=== PATIENT | male | born 1940 | race African-American/Black ===

== ENCOUNTER → 2017-10-20 16:56 | Outpatient (CLI) | payer BC, SELFPAY ==
--- NOTE | 2017-10-20 | IMM_PTH ---
PATIENT: GLENDY FLORES Jr. LOC: LIA U#:[id number] AGE/SX: 84/M ROOM: RE10/20/[address]: Dr. Jordy Sparks MD : 1940 BED: DIS: SPEC #: [id number] RECD: 10/22/17 12:34 STATUS: AUTUMN REQ #: [id number] ARABELLA: 10/20/17 00:[address]: Jordy Sparks DEPT: IMMUNOHISTOCHEMISTRY RECD BY: Gena Santamaria ENTERED: 10/22/17 12:35 SP TYPE: IMMUNO OTHR DR: Dr. Rashawn Monson MD Tissues: E - PROSTATE LEFT F - PROSTATE LEFT Procedures: 34BE12 (add) P40 (add) 34BE12 (initial) PHYSICIAN & INSTITUTION [place] [id number] SPECIMEN INFORMATION: Tissue Source: E - Left prostate, mid, core biopsy, F - Left prostate, base, core biopsy Clinical Info: Elevated PSA Specimen Number: [id number] E & F CPT code: 34130, 03641 x3 METHODOLOGY: Deparaffinized sections of prefer/formalin-fixed tissue or PAP/DQ stained slides are incubated with monoclonal/polyclonal antibodies/oligonucleotide probes. Localization is made via biotin free immunoperoxidase method. Appropriate controls are performed and reacted as expected. Results on target cell population are indicated in the following table: RESULTS: ANTIBODY / CLONE RESULT Block E P40 (BC28) positive 34BE12 (34BE12) positive Block F P40 (BC28) positive 34BE12 (34BE12) positive These tests were developed and their performance characteristics determined by [facility]. They may not have been cleared or approved by the U.[place]. Food and Drug Administration. The FDA has determined that such clearance or approval is not necessary. INTERPRETATION: E. Left prostate, mid, core biopsy: Negative for carcinoma. F. Left prostate, base, core biopsy: Consistent with high-grade prostatic intraepithelial neoplasia (HGPIN). SJ:ruddy 10/23/17
--- NOTE | 2017-10-20 16:30 | PROSBIL_PTH ---
PATIENT: GLENDY FLORES Jr. LOC: LIA U#:[id number] AGE/SX: 84/M ROOM: RE10/20/[address]: Dr. Jordy Sparks MD : 1940 BED: DIS: SPEC #: [id number] RECD: 10/20/17 16:55 STATUS: AUTUMN DEANDRE #: [id number] ARABELLA: 10/20/17 16:[address]: Jordy Sparks DEPT: SURGICAL PATHOLOGY RECD BY: Ivan Torres ENTERED: 10/21/17 07:32 SP TYPE: PROST BX NENA DR: Dr. Rashawn Monson MD Tissues: A - PROSTATE RIGHT B - PROSTATE RIGHT C - PROSTATE RIGHT D - PROSTATE LEFT E - PROSTATE LEFT F - PROSTATE LEFT Procedures: PROSTATE BX HEADER .OPERATION: Prostate biopsy PRE-OP DIAGNOSIS: Elevated PSA TISSUE SUBMITTED: A - Right apex, B - Right mid, C - Right base, D - Left apex, E - Left mid, F - Left base MICROSCOPIC DIAGNOSIS A. Right prostate, apex, core biopsy: Prostatic tissue, negative for malignancy. B. Right prostate, mid, core biopsy: Prostatic tissue, negative for malignancy. C. Right prostate, base, core biopsy: Focal high-grade prostatic intraepithelial neoplasia (HGPIN). D. Left prostate, apex, core biopsy: Focal high-grade prostatic intraepithelial neoplasia (HGPIN). E. Left prostate, mid, core biopsy: Prostatic tissue, negative for malignancy. Focal mild acute and chronic inflammation. See comment. F. Left prostate, base, core biopsy: Focal high-grade prostatic intraepithelial neoplasia (HGPIN). Focal atrophy. See comment. SJ:rg 10/22/17 COMMENT E & F. Immunohistochemistry ([id number]) supports the above diagnosis. Case has been reviewed in consultation with Dr. Mcdermott who concurs with the above diagnosis. IDC:AM MICROSCOPIC DESCRIPTION Slides are reviewed. GROSS DESCRIPTION A - Received is one container designated prostate, right apex. The specimen consists of three elongated fragments of light mcfadden-white soft tissue measuring 0.5 to 1.2 cm in length and 0.1 cm in diameter. The specimen is totally submitted in one cassette. B - Received is one container designated prostate, right mid. The specimen consists of three elongated fragments of light mcfadden-white soft tissue each measuring 0.5 cm in length and 0.1 cm in diameter. The specimen is totally submitted in one cassette. C - Received is one container designated prostate, right base. The specimen consists of three elongated fragments of light mcfadden-white soft tissue measuring 0.5 to 1.8 cm in length and 0.1 cm in diameter. The specimen is totally submitted in one cassette. D - Received is one container designated prostate, left apex. The specimen consists of one elongated fragment of light mcfadden-white soft tissue measuring 1.5 cm in length and 0.1 cm in diameter. A fragment of stone is also noted measuring <0.1 cm in greatest dimension. The specimen is totally submitted in one cassette. E - Received is one container designated prostate, left mid. The specimen consists of two elongated fragments of light mcfadden-white soft tissue measuring 1.2 and 1.7 cm in length and 0.1 cm in diameter. The specimen is totally submitted in one cassette. F - Received is one container designated prostate, left base. The specimen consists of two elongated fragments of light mcfadden-white soft tissue measuring 1 and 1.5 cm in length and 0.1 cm in diameter. The specimen is totally submitted in one cassette. / SJ:rg 10/21/17 TC:5 CPT: 38438 x6
== END ==
PROVIDERS: Family Provider Family Medicine; PCP Family Medicine; Visit Provider Urology
DX: R97.20 Elevated prostate specific antigen [PSA] (principal)
CPT/HCPCS: 88305; 88341; 88342; G0416

== ENCOUNTER → 2018-05-22 09:26 | Outpatient (CLI) | payer MEDICARE, SELFPAY ==
--- NOTE | 2018-05-22 10:00 | MRI_ITS ---
STUDY: MR PELVIS WITH T WITHOUT CONTRAST REASON FOR EXAM: Male, 77 years old. Elevated PSA. Prior negative prostate biopsy. TECHNIQUE: Standardized fat and water weighted pulse sequences were obtained in all 3 orthogonal planes, pre-and post contrast administration. 8 ml of Gadavist contrast material was administered intravenously for the contrast portion of the examination. COMPARISON: None. FINDINGS: There is no evidence of pelvic or inguinal lymphadenopathy. There is mild circumferential thickening of the wall the urinary bladder with mild trabeculation likely reflecting detrusor muscle hypertrophy in the setting of prostatomegaly. There are no visualized bone lesions. Evaluated portions of the small and large bowel exhibit no acute process. Prostate: The prostate is enlarged, transverse dimension 5.7 cm, anterior-posterior 4.3 cm, and craniocaudal up to 4.6 cm. Diffuse features of BPH, multinodular features of the gland, including central zone T2 hyperintense and hypointense nodularity. Mid gland, right posterior medial peripheral zone, centered on series 9 image 24, sharply circumscribed T2 hypointense nodule measuring 7.9 mm in diameter, partially abutting the capsular margin without apparent extracapsular extension, exhibiting restricted diffusion, consistent with malignancy. Mid gland, bordering the anterior transitional and anterior peripheral zone, circumscribed oval T2 hypointense nodule with a greatest dimension of approximately 12.6 mm, also exhibiting restricted diffusion. Centered on series 9 image 13. At the base of the gland, anterior fibromuscular stroma on the right, there is a more ill-defined T2 hypointense lesion measuring approximate 6 mm in greatest dimension, exhibiting restricted diffusion. Base of the gland, at the border of the anterior transitional and peripheral zone, circumscribed T2 hypointense lesion measuring 7.9 mm. Centered on series 9 image 13, also exhibiting restricted diffusion. There is no evidence of lesion of the neurovascular bundles or seminal vesicles. Each of these lesions is suspicious for malignancy. Contrast-enhanced images were performed in a delayed phase of enhancement, and early arterial enhancement and early washout features of these lesions cannot be assessed. MRI/Pelvis W/WO Contrast IMPRESSION: Multiple circumscribed/encapsulated T2 hypointense foci of the prostate gland, exhibiting restricted diffusion. No evidence of extraprostatic extension. PI-RADS Category 4. (Classification up graded from 3 based on focal markedly suspicious hypointensity on ADC). Multiple Matt images are saved to the PACS archive. Electronically Signed: Edenilson Gómez MD at 10:46 EST Tel , Service support ,
[2018-05-22 10:10] LABS: CREATININE FINGERSTICK 1.1 mg/dL (0.70-1.30); EGFR FINGERSTICK > 60.0000 mL/min (>60)
--- OUTSIDE RECORDS SUMMARY | 2018-07-26 16:30 | XMS RPT_ITS ---
:1940 Author Organization OHIP Care Team Providers Name Role Phone JOSHUA WADDELL CNP Attending Unavailable CAITLYN GAMING, DR. FLOWER Schwarz Primary Care Unavailable ZEB COLÓN MD Attending Unavailable CAITLYN GAMING, DR. FLOWER Schwarz Primary Care Unavailable CAITLYN GATES., DR. FLOWER Schwarz Attending Unavailable CAITLYN GATES., DR. FLOWER Schwarz Primary Care Unavailable MASCI, ROBEL A Referring Unavailable MASCI, ROBEL A Referring Unavailable MASCI, ROBEL A Referring Unavailable MASCI, ROBEL A Referring Unavailable MASCI, ROBEL A Referring Unavailable MASCI, ROBEL A Referring Unavailable MASCI, ROBEL A Referring Unavailable MASCI, ROBEL A Referring Unavailable MASCI, ROBEL A Attending Unavailable MASCI, ROBEL A Referring Unavailable MASCI, ROBEL A Referring Unavailable MASCI, ROBEL A Referring Unavailable MASCI, ROBEL A Referring Unavailable MASCI, ROBEL A Referring Unavailable MASCI, ROBEL A Referring Unavailable MASCI, ROBEL A Referring Unavailable MASCI, ROBEL A Referring Unavailable MASCI, ROBEL A Referring Unavailable MASCI, ROBEL A Referring Unavailable MASCI, ROBEL A Attending Unavailable MASCI, ROBEL A Referring Unavailable MASCI, ROBEL A Referring Unavailable MASCI, ROBEL A Referring Unavailable MASCI, ROBEL A Referring Unavailable HYUN, KYLER Referring Unavailable MASCI, ROBEL A Referring Unavailable MASCI, ROBEL A Attending Unavailable MASCI, ROBEL A Referring Unavailable MASCI, ROBEL A Referring Unavailable MASCI, ROBEL A Referring Unavailable MASCI, ROBEL A Referring Unavailable MASCI, ROBEL A Referring Unavailable MASCI, ROBEL A Attending Unavailable MASCI, ROBEL A Referring Unavailable MASCI, ROBEL A Referring Unavailable MASCI, ROBEL A Referring Unavailable MASCI, ROBEL A Attending Unavailable MASCI, ROBEL A Referring Unavailable MASCI, ROBEL A Referring Unavailable MASCI, ROBEL A Referring Unavailable MASCI, ROBEL A Attending Unavailable MASCI, ROBLE A Referring Unavailable MASCI, ROBEL A Referring Unavailable MASCI, ROBEL A Referring Unavailable MASCI, ROBEL A Referring Unavailable MASCI, ROBEL A Referring Unavailable MASCI, ROBEL A Referring Unavailable MASCI, ROBEL A Referring Unavailable MASCI, ROBEL A Referring Unavailable MASCI, ROBEL A Referring Unavailable MASCI, ROBEL A Referring Unavailable MASCI, ROBEL A Referring Unavailable MASCI, ROBEL A Referring Unavailable MASCI, ROBEL A Attending Unavailable MASCI, ROBEL A Referring Unavailable MASCI, ROBEL A Referring Unavailable MASCI, ROBEL A Referring Unavailable MASCI, ROBEL A Referring Unavailable MASCI, ROBEL A Referring Unavailable MASCI, ROBEL A Referring Unavailable MASCI, ROBEL A Referring Unavailable MASCI, ROBEL A Referring Unavailable MASCI, ROBEL A Referring Unavailable MASCI, ROBEL A Referring Unavailable MASCI, ROBEL A Referring Unavailable MASCI, ROBEL A Referring Unavailable MASCI, ROBEL A Referring Unavailable MASCI, ROBEL A Referring Unavailable MASCI, ROBEL A Attending Unavailable MASCI, ROBEL A Referring Unavailable MASCI, ROBEL A Referring Unavailable MASCI, ROBEL A Referring Unavailable MASCI, ROBEL A Attending Unavailable MASCI, ROBEL A Referring Unavailable MASCI, ROBEL A Referring Unavailable MASCI, ROBEL A Referring Unavailable MASCI, ROBEL A Referring Unavailable MASCI, ROBEL A Referring Unavailable MASCI, ROBEL A Referring Unavailable MASCI, ROBEL A Referring Unavailable MASCI, ROBEL A Referring Unavailable MASCI, ROBEL A Referring Unavailable MASCI, ROBEL A Referring Unavailable MASCI, ROBEL A Attending Unavailable MASCI, ROBEL A Referring Unavailable MASCI, ROBEL A Referring Unavailable MASCI, ROBEL A Referring Unavailable MASCI, ROBEL A Referring Unavailable MASCI, ROBEL A Referring Unavailable MASCI, ROBEL A Referring Unavailable MASCI, ROBEL A Referring Unavailable MASCI, ROBEL A Referring Unavailable Bridger, Jordy Bishop Attending Unavailable Bridger, Jordy Bishop Referring Unavailable NAUMOFF, FLOWER Primary Care Unavailable NitaJoshua Attending Unavailable NAUMOFF, FLOWER Primary Care Unavailable Bridger, Jordy Bishop Attending Unavailable NAUMOFF, FLOWER Primary Care Unavailable Bridger, Jordy Bishop Referring Unavailable PROBLEMS PROBLEMS DATE TYPE CONDITION / CODE ATTENDING STATUS SOURCE 05/18/2018 Active Left lower quadrant NA Active [facility] pain / R10.32(ICD-10) Clinic Main [place] [facility] 04/29/2018 Active Elevated prostate NA Active [facility] specific antigen (PSA) Clinic Main / R97.20(ICD-10) [place] [facility] 12/23/2017 Active Intestinal NA Active [facility] malabsorption, Clinic Main unspecified / [place] K90.9(ICD-10) Repository 12/23/2017 Active 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) / [place] D50.0(ICD-10) Repository 11/14/2017 Active Anemia due to [facility] antineoplastic Clinic Main chemotherapy / [place] D64.81(ICD-10) Repository 11/14/2017 Active Adverse effect of [facility] antineoplastic and Clinic Main immunosuppressive [place] drugs, initial Repository encounter / T45.1X5A(ICD-10) 09/04/2016 Active Multiple myeloma not NA Active [facility] having achieved Clinic Main remission / [place] C90.00(ICD-10) Repository PROCEDURES PROCEDURES No Procedure Records FoundRESULTS RESULTS PROGRESS Observed: 05/27/2018 Status: COMPLETED Source: [place] 9:17 AM [facility] REPOSITORY HNO ID: [id number] Author: Rola Ford (Sw) Service: (none) Author Type: Certified Orthotic Fitter Type: Progress Notes Filed: 05/27/2018 9:24 AM Note Text: Social Work Problem Referral Note INFORMATION/REFERRAL : Glendy Mark Soto. 77 year old male was referred by [facility] treasury representative to [facility] Social Work for the following reason(s): financial assistance - meals, parking, etc. PERSONS INTERVIEWED: patient and [employer] treasury representative INTERVENTION: Phone Contact Affect/Mood: The patient is noted as appropriate IDENTIFIED PROBLEMS/NEEDS: Financial Intervention/Referral to be provided:Arrangements made for continuity of care IMPRESSION/PLAN: SW received a call from [employer] treasury representative stating that income guidelines for 2019 have changed and patient may be eligible for assistance now. DAI called patient and his spouse to inform them of this news. Patient's spouse reports she will call her insurance company to see how much is left until they reach their arn-tp-kgyyln and how much the drug will be after that. She will then call SW back to report if they want to continue with patient assistance option. DAI called [employer] treasury representative, Marcie, to inform her of the current status ( , extension [phone]). Patient denies other needs at this time. F/U APPOINTMENT: CARISA Pond CNSW Observed: 05/27/2018 Status: COMPLETED Source: [place] 12:00 AM [facility] REPOSITORY Social Work (ZOIE) GLENDY FLORES JR. ([id number]) 1940 M Date Time Provider Department 05/27/18 ROLA FORD) ZOIE During your visit today, we recorded the following information about you: CARISA Raines 05/27/2018 9:24 AM Addendum Social Work Problem Referral Note INFORMATION/REFERRAL : Glendy Flores Jr. 77 year old male was referred by [facility] treasury representative to [facility] Social Work for the following reason(s): financial assistance - meals, parking, etc. PERSONS INTERVIEWED: patient and [employer] treasury representative INTERVENTION: Phone Contact Affect/Mood: The patient is noted as appropriate IDENTIFIED PROBLEMS/NEEDS: Financial Intervention/Referral to be provided:Arrangements made for continuity of care IMPRESSION/PLAN: DAI received a call from [employer] treasury representative stating that income guidelines for 2019 have changed and patient may be eligible for assistance now. DAI called patient and his spouse to inform them of this news. Patient's spouse reports she will call her insurance company to see how much is left until they reach their [id number] and how much the drug will be after that. She will then call DAI back to report if they want to continue with patient assistance option. DAI called [employer] treasury representative, Marcie, to inform her of the current status ( , extension [phone]). Patient denies other needs at this time. F/U APPOINTMENT: CARISA Pond Allergies As of Date: 05/27/2018 (No Known Allergies) Date Reviewed: 05/15/2018 Reviewed by: Amaya Donovan Ct - Fully Assessed Reason for Visit: Social Work Services [507] Prescriptions as of 05/27/2018 Sig: LENALIDOMIDE 15 MG CAPSULE Take 1 capsule by mouth once * POTASSIUM CHLORIDE ER 20 MEQ * Take 1 tablet by mouth once d* ACYCLOVIR 400 MG TABLET Take 1 tablet by mouth twice * SODIUM CHLORIDE 0.9% FLUSH Access implanted vascular acc* HEPARIN, PORCINE (PF) 100 UNI* Access implanted vascular acc* TRIAMCINOLONE ACETONIDE 0.025* Apply 1 application to affect* OXYBUTYNIN CHLORIDE ER 10 MG * Take 10 mg by mouth once juan miguel* NYSTATIN 100,000 UNIT/ML ORAL* Take 5 mL by mouth four times* Patient not taking: Reported on 02/16/2018 CLOPIDOGREL 75 MG TABLET Take 75 mg by mouth once juan miguel* OXYBUTYNIN CHLORIDE ER 5 MG T* Take 5 mg by mouth once daily* PANTOPRAZOLE 40 MG TABLET,DEL* Take 40 mg by mouth once juan miguel* DULCOLAX (BISACODYL) ORAL Take 1 tablet by mouth as nee* ONDANSETRON HCL 8 MG TABLET TAKE ONE TABLET BY MOUTH EVER* SENNOSIDES 8.6 MG-DOCUSATE SO* Take 1 tablet by mouth once d* VITAMINS AND MINERALS ORAL Take by mouth once daily. FUROSEMIDE 20 MG TABLET Take 20 mg by mouth once juan miguel* HYDROCODONE 10 MG-ACETAMINOPH* Take 1 tablet by mouth every * TAMSULOSIN 0.4 MG CAPSULE Take 0.4 mg by mouth once donna* VYTORIN 10 MG-80 MG TABLET daily at bedtime. * AMLODIPINE 10 MG-BENAZEPRIL 2* Take one(1) tablet daily. * PIOGLITAZONE 45 MG TABLET Take one(1) tablet daily. * VALSARTAN 320 MG-HYDROCHLOROT* Take one(1) tablet daily. * ASPIRIN 81 MG CHEWABLE TABLET Take one(1) tablet daily. 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 ([id number]) 1940 M Date Time Provider Department 05/25/18 ROBEL MADDEN During your visit today, we recorded the following information about you: Rebecca Kemp LPN 05/25/2018 10:04 AM Signed Refill request received from [employer] auth# [id number]. Please send electronically. Rebecca Kemp LPN Allergies As of Date: 05/25/2018 (No Known Allergies) Date Reviewed: 05/15/2018 Reviewed by: Amaya Limon - Fully Assessed Reason for Visit: Refill Request [94] Visit Diagnosis:Multiple myeloma not having achieved remission (HCC) [C90.00] Order(s):lenalidomide (REVLIMID) 15 mg capsuleTake 1 capsule by mouth once daily. for 3 weeks then off 1 week.Disp: 21 capsuleRfl: 5 Prescriptions as of 05/25/2018 Sig: LENALIDOMIDE 15 MG CAPSULE Take 1 capsule by mouth once * POTASSIUM CHLORIDE ER 20 MEQ * Take 1 tablet by mouth once d* ACYCLOVIR 400 MG TABLET Take 1 tablet by mouth twice * SODIUM CHLORIDE 0.9% FLUSH Access implanted vascular acc* HEPARIN, PORCINE (PF) 100 UNI* Access implanted vascular acc* TRIAMCINOLONE ACETONIDE 0.025* Apply 1 application to affect* OXYBUTYNIN CHLORIDE ER 10 MG * Take 10 mg by mouth once juan miguel* NYSTATIN 100,000 UNIT/ML ORAL* Take 5 mL by mouth four times* Patient not taking: Reported on 02/16/2018 CLOPIDOGREL 75 MG TABLET Take 75 mg by mouth once juan miguel* OXYBUTYNIN CHLORIDE ER 5 MG T* Take 5 mg by mouth once daily* PANTOPRAZOLE 40 MG TABLET,DEL* Take 40 mg by mouth once juan miguel* DULCOLAX (BISACODYL) ORAL Take 1 tablet by mouth as nee* ONDANSETRON HCL 8 MG TABLET TAKE ONE TABLET BY MOUTH EVER* SENNOSIDES 8.6 MG-DOCUSATE SO* Take 1 tablet by mouth once d* VITAMINS AND MINERALS ORAL Take by mouth once daily. FUROSEMIDE 20 MG TABLET Take 20 mg by mouth once juan miguel* HYDROCODONE 10 MG-ACETAMINOPH* Take 1 tablet by mouth every * TAMSULOSIN 0.4 MG CAPSULE Take 0.4 mg by mouth once donna* VYTORIN 10 MG-80 MG TABLET daily at bedtime. * AMLODIPINE 10 MG-BENAZEPRIL 2* Take one(1) tablet daily. * PIOGLITAZONE 45 MG TABLET Take one(1) tablet daily. * VALSARTAN 320 MG-HYDROCHLOROT* Take one(1) tablet daily. * ASPIRIN 81 MG CHEWABLE TABLET Take one(1) tablet daily. 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 Dx C90.00. Adult male. Route: ORAL Sig: Take 1 capsule by mouth once daily. for 3 weeks then off 1 week. Medications Discontinued During This Encounter lenalidomide (REVLIMID) 15 mg capsule 21 c* 5 04/29/2018 05/25/2018 Cmt: [employer] authorization# [id number]. DX C90.00. Adult male. Route: ORAL Sig: Take 1 capsule by mouth once daily. for 3 weeks then off 1 week. Disc: Reason for discontinue is not on file. Encounter Status:Closed by ROBEL MADDEN DO on 05/25/18 CREATININE FINGERSTICK Collected: 05/22/2018 Status: F Source: [place] 9:59 AM [facility] TYPE CODE TESTS RESULT OUT OF RANGE REFERENCE UNITS LAB L9100.0210 0.70-1.30 mg/dL Normal CREATININE WB 1.1 LAB L9100.0220 >60 mL/min EGFR WB Normal > 60.0000 Performed By: #### L9100.0200 #### [facility] Laboratory Point of Care [address] [place] [address] PELVIS W/WO CONTRAST Observed: 05/22/2018 Status: F Source: [place] 9:29 AM [facility] Imaging Services [facility] [place] [address] Pelvis W/WO Contrast MR#: [id number] Acct: [id number] Name: GLENDY FLORES Rep #: [id number] : 1940 M 77 From: Edenilson Gómez MD PCP: Flower Monson MD Status: REG CLI Study: Pelvis W/WO Contrast Date of Exam: 05/22/18 Exam# [id number] Ordering Dr: Jordy Sparks MD STUDY: MR PELVIS WITH T WITHOUT CONTRAST REASON FOR EXAM: Male, 77 years old. Elevated PSA. Prior negative prostate biopsy. TECHNIQUE: Standardized fat and water weighted pulse sequences were obtained in all 3 orthogonal planes, pre-and post contrast administration. 8 ml of Gadavist contrast material was administered intravenously for the contrast portion of the examination. COMPARISON: None. FINDINGS: There is no evidence of pelvic or inguinal lymphadenopathy. There is mild circumferential thickening of the wall the urinary bladder with mild trabeculation likely reflecting detrusor muscle hypertrophy in the setting of prostatomegaly. There are no visualized bone lesions. Evaluated portions of the small and large bowel exhibit no acute process. Prostate: The prostate is enlarged, transverse dimension 5.7 cm, anterior-posterior 4.3 cm, and craniocaudal up to 4.6 cm. Diffuse features of BPH, multinodular features of the gland, including central zone T2 hyperintense and hypointense nodularity. Mid gland, right posterior medial peripheral zone, centered on series 9 image 24, sharply circumscribed T2 hypointense nodule measuring 7.9 mm in diameter, partially abutting the capsular margin without apparent extracapsular extension, exhibiting restricted diffusion, consistent with malignancy. Mid gland, bordering the anterior transitional and anterior peripheral zone, circumscribed oval T2 hypointense nodule with a greatest dimension of approximately 12.6 mm, also exhibiting restricted diffusion. Centered on series 9 image 13. At the base of the gland, anterior fibromuscular stroma on the right, there is a more ill-defined T2 hypointense lesion measuring approximate 6 mm in greatest dimension, exhibiting restricted diffusion. Base of the gland, at the border of the anterior transitional and peripheral zone, circumscribed T2 hypointense lesion measuring 7.9 mm. Centered on series 9 image 13, also exhibiting restricted diffusion. There is no evidence of lesion of the neurovascular bundles or seminal vesicles. Each of these lesions is suspicious for malignancy. Contrast-enhanced images were performed in a delayed phase of enhancement, and early arterial enhancement and early washout features of these lesions cannot be assessed. MRI/Pelvis W/WO Contrast IMPRESSION: Multiple circumscribed/encapsulated T2 hypointense foci of the prostate gland, exhibiting restricted diffusion. No evidence of extraprostatic extension. PI-RADS Category 4. (Classification up graded from 3 based on focal markedly suspicious hypointensity on ADC). Multiple Matt images are saved to the PACS archive. Electronically Signed: Edenilson Gómez MD at 10:46 EST Tel , Service support , CC: Flower Monson MD; Jordy Sparks MD Tape Sewing Machine Operator: Signed PROGRESS Observed: 05/18/2018 Status: COMPLETED Source: [place] 5:08 PM [facility] REPOSITORY HNO ID: [id number] Author: Julia Diaz Rt Service: (none) Author Type: (none) Type: Progress Notes Filed: 05/18/2018 5:09 PM Note Text: Radiology Service Progress Note PATIENT NAME: Glendy Flores Jr. DATE OF SERVICE: May 18, 2018 TIME: 5:08 PM PATIENT IDENTITY VERIFICATION COMPLETED USING TWO (2) METHODS: Patient confirmed name verbally and Date of . PATIENT GENDER DATA: Male PATIENT RELEVANT IMPLANT DATA REVIEWED: Yes RADIOLOGY DEPARTMENT: CT; Exam(s) Completed: Abdomen/Pelvis PERIPHERAL IV DATA: port injection by oncology nurse SIGNED BY: Julia Diaz Rt May 18, 2018 5:[address] ABD/PEL W IVCON Observed: 05/18/2018 Status: F Source: [place] 4:25 PM [facility] REPOSITORY * * *Final Report* * * DATE OF EXAM: May 18 2018 4:25PM [facility] 0530 - CT ABD/PEL W IVCON / PROCEDURE REASON: multiple diagnoses * * * * Physician Interpretation * * * * EXAMINATION: CT ABDOMEN AND PELVIS WITH IV CONTRAST CLINICAL HISTORY: Left lower quadrant abdominal pain. Multiple myeloma. TECHNIQUE: CT of the abdomen and pelvis was performed using standard technique, scanning from just above the dome of the diaphragm to the symphysis pubis. MQ: CTAP_3 Contrast: IV: 150 ml of Omnipaque 300 Oral: 900 ml of 50ML Omnipaque [address] Radiation dose: Integrated Dose-length product (DLP) for this visit = 515 mGy*cm. CT Dose Reduction Employed: mAs-kVp adjusted based on patient size-age COMPARISON: None. RESULT: Liver: No mass. Normal hepatic morphology. Biliary: No bile duct dilation. The gallbladder has a normal appearance. Spleen: No mass. No splenomegaly. Pancreas: No mass or duct dilation. Adrenals: No mass. Kidneys: The kidneys enhance symmetrically. There is no hydronephrosis. There is a cyst with multiple septations in the upper pole of the right kidney which measures 3 x 2.6 cm. GI tract: No dilation or wall thickening. Lymph nodes: No abdominal or pelvic lymphadenopathy. Mesentery/Peritoneum: No ascites or mass. Retroperitoneum: No mass. Vasculature: The celiac axis and SMA are patent. The portal vein and branches, splenic vein, SMV, and hepatic veins are patent. No abdominal aortic aneurysm. Pelvis: No mass, ascites or fluid collection. The bladder has a normal appearance. Bones/Soft Tissues: No acute abnormalities. Lower thorax: No pleural effusion or consolidation. IMPRESSION: 1. No acute pathology 2. Cyst with multiple septations in the upper pole of the right kidney which could be further evaluated by renal ultrasound or MRI Tape Sewing Machine Operator: [facility] Transcribe Date/Time: May 18 2018 4:47P Dictated by : BRENT ROSEN MD This examination was interpreted and the report reviewed and electronically signed by: BRENT ROSEN MD on May 18 2018 4:54PM EST [id number] XR BONE SURVEY Observed: 05/13/2018 Status: F Source: [place] ROUTINE 1:43 PM [facility] REPOSITORY * * *Final Report* * * DATE OF EXAM: May 13 2018 1:43PM WRX [id number] - XR BONE SURVEY ROUTINE / PROCEDURE REASON: Multiple myeloma not having achieved remission (HCC) * * * * Physician Interpretation * * * * HISTORY: 77-YEAR-OLD MALE WITH Multiple myeloma not having achieved remission (HCC) . Recheck multiple myeloma TECHNIQUE: XR BONE SURVEY ROUTINE Laterality: LEFT Number of different views (projections): 19 COMPARISON: 09/04/2016 RESULT: Lateral skull, no focal lytic lesions. Cervical, thoracic and lumbar spine: Degenerative disc disease and osteopenia. No focal lytic lesion no compression fractures. Ribs: Intact, no lytic lesion no fracture. Upper extremities: Remote healed fracture of the distal radius bilaterally. AP pelvis: No focal lytic lesion. Right and left femur and right left tibia and fibula. No focal lytic lesion. Extensive arterial calcification. [place] with central venous line is present with its tip in the region of the radiation dose received junction. There is femoral graft material present in the distal right femur. IMPRESSION: NO FOCAL LYTIC LESION AND NO CHANGE COMPARED TO PREVIOUS EXAM. Tape Sewing Machine Operator: MARYAM Transcribe Date/Time: May 14 2018 3:09P Dictated by : DORA JUÁREZ MD This examination was interpreted and the report reviewed and electronically signed by: DORA JUÁREZ MD on May 14 2018 3:11PM EST [id number] PROGRESS Observed: 05/13/2018 Status: COMPLETED Source: [place] 12:42 PM [facility] REPOSITORY HNO ID: [id number] Author: Mabel Moon Service: (none) Author Type: (none) Type: Progress Notes Filed: 05/13/2018 1:44 PM Note Text: Radiology Service Progress Note PATIENT NAME: Glendy Flores Jr. DATE OF SERVICE: May 13, 2018 TIME: 1:44 PM PATIENT IDENTITY VERIFICATION COMPLETED USING TWO (2) METHODS: Patient confirmed name verbally and Date of . PATIENT GENDER DATA: Male PATIENT RELEVANT IMPLANT DATA REVIEWED: Not Applicable RADIOLOGY DEPARTMENT: General X-ray: Exam(s) Completed: Bone Survey PERIPHERAL IV DATA: Not applicable SIGNED BY: Mabel Moon May 13, 2018 1:38 PM PROGRESS Observed: 05/13/2018 Status: COMPLETED Source: [place] 12:06 PM [facility] REPOSITORY HNO ID: [id number] Author: Robel Madden Service: (none) Author Type: Physician Type: Progress Notes Filed: 05/13/2018 12:58 PM Note Text: Diagnosis: 1) Multiple myeloma. Baseline assessment on initial diagnosis: IMWG criteria, [place] Journal of Haematology 121: 749?57, 2003, update in: Rosemaryie et al. Leukemia 20: 1467-73, 2006 and at IMW meeting Jaye 2010 ? Symptomatic multiple myeloma: IgG kappa. ? Related Organ or Tissue Involvement (CRAB) or other Myeloma Defining Event (MDE): Anemia requiring transfusion. Otherwise, baseline bone survey 09/04/2016 revealed no lytic lesions. Baseline serum calcium, ionized value 1.2 mmol per liter. Baseline serum creatinine 1.2 mg/dL. ? Antecedent plasma cell dyscrasia: None known. ? Myeloma FISH panel: 13q14 (RB1): ? ? 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 ?Normal pattern 14q32 (IGH): ? ? 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 The translocation partner cannot be identified. These corresponds to standard risk disease. ? Cytogenetics: Pending. ? LDH: 210 (135-225 U/L) ? ISS stage: B2M not drawn. ? [place] Stage: III (anemia with Hgb < 8.5 g/dL) ? Monoclonal proteins at diagnosis: Serum M-spike: 7.5 gm/dL, Involved serum free light chains: eewfm=1160.0 mg/L, Uninvolved serum free light chains: lambda= 5.8 mg/L. ? Bone marrow plasma cell infiltration: 22%. HPI: The patient is a 77 yo male with PMH significant for CAD, PVD, HTN and DM2. The patient had a CBC done on 01/23/2016. At that time the white count was 6300. Hemoglobin was 10.6 g/dL and the platelet count 179,000. Chemistries at that time included a basic metabolic profile that showed a creatinine of 1.0 mg/dL. Patient had repeat CBC on 07/12/2016. The hemoglobin was noted to be 8.7 g/dL. The total white count was 6600. The differential was unremarkable. Platelet count 134,000. Chemistries were remarkable for a total serum protein at 14 g/dL. Albumin was 3.4 g/dL. Globulin fraction was not able to be determined. The remainder the chemistries were unremarkable and specifically the serum creatinine was 0.9. CBC was repeated on 07/22/2016 the hemoglobin was 8.5 g/dL. Again the total white count differential were normal. Platelet count 135,000 serum protein 14.1 g/dL. Globulin fraction was noted to be outside the reportable range. He was admitted to [facility] the first week of August. He had significant anemia and received a 2 unit red blood cell transfusion. He underwent EGD and colonoscopy. 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 Most significantly he had been having epistaxis in the few weeks prior to presentaton. This required packing. He also underwent a cauterization sometime in the last week or so but had significant right- sided epistaxis before coming in today. He is not on anticoagulation. He denies other bleeding problems. Previous therapy: 1) VCd x8 cycles. 2) Vd x2 cycles. 3) RVd x1 cycle--started lenalidomide 07/25/2017. 4) Rd. Current therapy: Revlimid on hold. Presents for ongoing hematologic management. Interim history: Having pain in left abdomen. It is been going on for about 3 weeks. It's a sharp pain in the mid left abdomen. No associated fever. No nausea or vomiting. He's been eating. No bloody stools. He's been more constipated than usual but his bowels moved yesterday and he had no relief of the pain. He is taking 2 glasses of Miralax a day. Is also using a stool softener/laxative. Otherwise he is tolerating Revlimid well. He has stable numbness of the toes and feet. He's not had any unusual bleeding or Bruising. No further hemorrhoidal bleeding. PMH, medications and allergies as below personally reviewed by me today. Any changes documented in appropriate section. ROS: Constitutional: See above. Neuro: No HODGES, dizziness or vertigo. Uses cane for occasional imbalance. HEENT: No recent change in voice, vision or hearing. Resp: No cough or sputum production. No wheeze. CVS: Denies PND and orthopnea. He has chronic mild swelling/pitting edema of both legs worse on the left secondary to previous vein harvest for bypass surgery--stable. GI: Denies symptoms of stomatitis. Denies dysphagia and odynophagia. Denies abdominal pain. : Denies dysuria or gross hematuria. No symptoms of bladder outlet obstruction. Endo: Denies hot flashes. Denies polyuria and polydipsia. Denies heat and cold intolerance. Musculoskeletal: Denies bone, joint and muscular pain. Stable lower back pain. Derm: Denies rash. Denies jaundice and diffuse pruritis. Heme: See above. Psych: Normal mood. PHYSICAL EXAM: Vitals: Blood pressure 135/78, pulse 65, temperature 36.7 ?C (98 ?F), weight 80.3 kg (177 lb). Well-appearing and in no acute distress. EYES: Sclerae are anicteric bilaterally. NECK: Supple. LYMPHATIC: There is no palpable cervical, supraclavicular adenopathy. RESPIRATORY: Inspiratory breath sounds are of normal intensity in all thakur. No rales, wheezes or rhonchi. CARDIOVASCULAR: Rhythm is regular. Normal intensity S1/S2. ABDOMEN: The abdomen is nondistended. No organomegaly. Mild to moderately tender in the mid left abdomen. No rebound or voluntary guarding. Extremities: Mild swelling with trace edema of distal LEs. SKIN: No rash. No petechiae. NEUROLOGIC: ore trimmer II-XII are grossly intact. No focal motor weakness--symmetric diffuse weakness of the legs. MUSCULOSKELETAL: No muscle wasting. LABS: Component Latest Ref Rng AND Units 08/21/2016 11/14/2017 12/22/2017 01/26/2018 02/16/2018 Protein, Total 6.0 - 8.4 g/dL 13.6 (H) 5.9 (L) 6.3 6.6 7.0 Albumin for SPE 3.37 - 4.23 gm/dL 3.93 2.94 (L) 3.16 (L) 3.50 3.64 Alpha 1 Globulin 0.18 - 0.31 gm/dL 0.25 0.35 (H) 0.31 0.33 (H) 0.31 Alpha 2 Globulin 0.52 - 0.97 gm/dL 0.71 1.03 (H) 1.04 (H) 0.95 0.96 Beta Globulin 0.84 - 1.36 gm/dL 0.65 (L) 1.01 1.00 0.99 1.06 Gamma Globulin 0.70 - 1.44 gm/dL 8.06 (H) 0.57 (L) 0.79 0.83 1.04 Interpretation (Prot Electro) SEE COMMENT SEE COMMENT SEE COMMENT SEE COMMENT SEE COMMENT M-Protein Location Gamma fraction N/A N/A N/A N/A M-Protein Concentration 0.00 gm/dL 7.50 (H) 0.00 0.00 0.00 0.00 SPE Staff Review Reviewed by Glen Chapa MD ([id number]) Reviewed by Yaniv Rowell M.D. ([id number]) Reviewed by Yaniv Rowell M.D. ([id number]) Reviewed by Anthony Marrero MD. ([id number]) Reviewed by Yaniv Rowell M.D. ([id number]) Component Latest Ref Rng AND Units 08/21/2016 12/31/2016 09/18/2017 10/16/2017 11/14/2017 12/22/2017 01/26/2018 [place] Free, Serum 3.30 - 19.40 mg/L 1,236.0 (H) 77.8 (H) 23.9 (H) 30.8 (H) 37.1 (H) 10.8 13.7 Lambda Free, Serum 5.7 - 26.3 mg/L 5.8 8.9 14.8 16.6 22.2 9.7 11.2 K/L Ratio, Serum 0.26 - 1.65 213.10 (H) 8.74 (H) 1.61 1.86 (H) 1.67 (H) 1.11 1.22 ASSESSMENT/PLAN: (C90.00) Multiple myeloma not having achieved remission (HCC) (primary encounter diagnosis) (D75.9) Hyperviscosity Assessment: -IgG kappa multiple myeloma. -Symptomatic anemia presentation requiring transfusion. -He also had significantly elevated serum protein with some symptoms of hyperviscosity including epistaxis and previous GI bleeding. -M-protein undetectable since November. -Discussed plan to continue Revlimid 15 mg dose without dexamethasone as maintenance therapy. Plan: -Revlimid 15 mg for 21 days. Supportive care: Hematology: Does not require blood transfusion. Renal: Normal creatinine at baseline--clinically no evidence for renal dysfunction. Infectious diseases: Acyclovir stopped after 6 months of therapy beyond bortezomib. Musculoskeletal: Bisphoshonates--No obvious lytic lesions at baseline evaluation and baseline DEXA showed normal bone density. This is in keeping with the [facility] care-path guidelines to hold on bisphosphonate therapy. Venous thromboembolism risk: Continue low dose ASA and Plavix. Neurology: Baseline neuropathy improved and now stable. (R10.32) LLQ pain Assessment: -No leukocytosis or fever. -Etiology of pain not clear. -Had colonoscopy early last year. Plan: -CT abdomen and pelvis. Robel Madden, DO B2 MICROGLOBULIN Collected: 05/13/2018 Status: F Source: [place] 11:48 AM [facility] REPOSITORY TYPE CODE TESTS RESULT OUT OF REFERENCE UNITS RANGE LAB B2M 0.8-2.2 mg/L B2 Microglobulin High 2.4 Performed By: #### B2M, SERMPA, SEPG #### [facility] [place] [address] [place], [place] [address] MONCLNL PROTEIN, SER Collected: 05/13/2018 Status: F Source: [place] 11:48 AM [facility] REPOSITORY TYPE CODE TESTS RESULT OUT OF REFERENCE UNITS RANGE LAB MPAIGG 717-1411 mg/dL MPA Serum 1350 IgG LAB MPAIGA 78-391 mg/dL High MPA Serum 469 IgA LAB MPAIGM 53-334 mg/dL Low MPA Serum 15 IgM LAB FKAPS 3.30-19.40 mg/L High [place], 50.2 Free, Serum Result Comment: Rarely, increased serum free light chains values may not be detected due to antigen excess phenomenon. Results should always be correlated with other laboratory results and clinical findings. LAB FLAMS 5.7-26.3 mg/L High Lambda, Free, 32.3 Serum Result Comment: Rarely, increased serum free light chains values may not be detected due to antigen excess phenomenon. Results should always be correlated with other laboratory results and clinical findings. LAB KLRAT 0.26-1.65 1.55 K/L Ratio, Serum LAB MPAR No M protein is identified. No M MPA Result protein is identified. LAB MPASTF Reviewed Staff Review by Russell Carrera M.D., PhD ([id number]) Performed By: #### B2M, SERMPA, SEPG #### [facility] [place] [address] [place], [place] [address] PROTEIN ELECTROPHOR. Collected: 05/13/2018 Status: F Source: [place] 11:48 AM [facility] REPOSITORY TYPE CODE TESTS RESULT OUT OF REFERENCE UNITS RANGE LAB TPSPE 6.0-8.4 g/dL Total Protein, SPE 7.4 LAB ALBE 3.37-4.23 gm/dL Albumin Low 3.20 LAB A1GL 0.18-0.31 gm/dL Alpha 1 Globulin High 0.37 LAB A2GL 0.52-0.97 gm/dL Alpha 2 Globulin High 1.10 LAB BEGL 0.84-1.36 gm/dL Beta Globulin 1.22 LAB GAGL 0.70-1.44 gm/dL Gamma Globulin High 1.51 LAB SPEINT Interpretation SEE COMMENT Result Comment: No definitive M protein is identified on protein electrophoresis. LAB LOC M Protein N/A Location LAB GPERDL 0.00 gm/dL M Cesar 0.00 Concentratn LAB SPESTF SPE Staff Review Reviewed by Russell Carrera M.D., PhD ([id number]) Performed By: #### Erik, SHARMILA, MONIKA #### [facility] [address] [place], [place] [address] DAVID ABS GR + CBC Collected: 05/13/2018 Status: F Source: [place] 11:44 AM [facility] REPOSITORY TYPE CODE TESTS RESULT OUT OF REFERENCE UNITS RANGE LAB WWBC 3.70-11.00 k/uL [place] WBC 5.65 LAB WRBC 4.20-6.00 m/uL Low [place] RBC 2.84 LAB WHGB 13.0-17.0 g/dL Low [place] Hemoglobin 9.3 LAB WHCT 39.0-51.0 % Low [place] Hematocrit 27.7 LAB WMCV 80.0-100.0 fL [place] MCV 97.5 LAB WMCH 26.0-34.0 pg [place] MCH 32.7 LAB WMCHC 30.5-36.0 g/dL [place] MCHC 33.6 LAB WRDW 11.5-15.0 % David High RDW 15.6 LAB WPLT 150-400 k/uL David Platelet Cnt 280 LAB WMPV 9.0-12.7 fL David MPV 10.1 Result Comment: Test performed at: [facility], [address] [place] [address] [address] [place] [address]. LAB ABGRAN 1.45-7.50 k/uL Absol Gran 2.52 Count COMP METABOLIC PANEL Collected: 05/13/2018 Status: F Source: [place] 11:44 AM [facility] REPOSITORY TYPE CODE TESTS RESULT OUT OF REFERENCE UNITS RANGE LAB TP 6.3-8.0 g/dL Protein, Total 7.6 LAB ALB 3.9-4.9 g/dL Albumin Low 3.7 LAB CA 8.5-10.2 mg/dL Calcium, Total 9.8 LAB TBIL 0.2-1.3 mg/dL Bilirubin, Total 0.2 LAB ALKP 38-113 U/L Alkaline Phosphatase 90 LAB AST 14-40 U/L AST 14 LAB GLU 74-99 mg/dL Glucose High 206 LAB BUN 9-24 mg/dL BUN 12 LAB CRET 0.73-1.22 mg/dL Creatinine 0.95 LAB NA 136-144 mmol/L Sodium Low 131 LAB K 3.7-5.1 mmol/L Potassium Low 3.6 LAB CL 97-105 mmol/L Chloride 98 LAB CO2 22-30 mmol/L CO2 22 LAB AGAP 9-18 mmol/L Anion Gap 11 LAB ALT 10-54 U/L ALT 13 LAB GFRAA eGFR- >60 Amer. LAB GFRNAA . eGFR-All Other Races >60 Result Comment: eGFR (Estimated GFR) Units of measure: mL/min/1.73 meters squared eGFR is derived from the reexpressed MDRD Study equation using the following parameters: serum creatinine, age, gender and race. The creatinine assay has been calibrated to be traceable to IDMS. An eGFR <60 mL/min/1.73m2 for >3 months is consistent with chronic kidney disease. Refer to KDOQI guidelines for clinical interpretation. In patients with unstable renal function, e.g. those with acute kidney injury, the eGFR may not accurately reflect actual GFR. CNOVSP Observed: 05/13/2018 Status: COMPLETED Source: [place] 11:30 AM [facility] REPOSITORY Visit (SP) Office (ZOIE) GLENDY FLORES JR. ([id number]) 1940 M Date Time Provider Department 05/13/18 11:30 AM ROBEL MADDEN During your visit today, we recorded the following information about you: Temperature Pulse Blood pressure Weight 98 degrees 65/minute 135/78 80.3 kg Holly iFsh MADISON Patel LPN 05/13/2018 12:11 PM Signed Est pt, discuss recent lab results Holly MADISON Olsen, 05/13/2018 12:58 PM Signed Diagnosis: 1) Multiple myeloma. Baseline assessment on initial diagnosis: IMWG criteria, [place] Journal of Haematology 121: 749?57, 2003, update in: Júnior et al. Leukemia 20: 1467-73, 2006 and at IMW meeting Jaye 2010 ? Symptomatic multiple myeloma: IgG kappa. ? Related Organ or Tissue Involvement (CRAB) or other Myeloma Defining Event (MDE): Anemia requiring transfusion. Otherwise, baseline bone survey 09/04/2016 revealed no lytic lesions. Baseline serum calcium, ionized value 1.2 mmol per liter. Baseline serum creatinine 1.2 mg/dL. ? Antecedent plasma cell dyscrasia: None known. ? Myeloma FISH panel: 13q14 (RB1): ? ? 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 ?Normal pattern 14q32 (IGH): ? ? 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 The translocation partner cannot be identified. These corresponds to standard risk disease. ? Cytogenetics: Pending. ? LDH: 210 (135-225 U/L) ? ISS stage: B2M not drawn. ? [place] Stage: III (anemia with Hgb < 8.5 g/dL) ? Monoclonal proteins at diagnosis: Serum M-spike: 7.5 gm/dL, Involved serum free light chains: detru=4518.0 mg/L, Uninvolved serum free light chains: lambda= 5.8 mg/L. ? Bone marrow plasma cell infiltration: 22%. HPI: The patient is a 77 yo male with PMH significant for CAD, PVD, HTN and DM2. The patient had a CBC done on 01/23/2016. At that time the white count was 6300. Hemoglobin was 10.6 g/dL and the platelet count 179,000. Chemistries at that time included a basic metabolic profile that showed a creatinine of 1.0 mg/dL. Patient had repeat CBC on 07/12/2016. The hemoglobin was noted to be 8.7 g/dL. The total white count was 6600. The differential was unremarkable. Platelet count 134,000. Chemistries were remarkable for a total serum protein at 14 g/dL. Albumin was 3.4 g/dL. Globulin fraction was not able to be determined. The remainder the chemistries were unremarkable and specifically the serum creatinine was 0.9. CBC was repeated on 07/22/2016 the hemoglobin was 8.5 g/dL. Again the total white count differential were normal. Platelet count 135,000 serum protein 14.1 g/dL. Globulin fraction was noted to be outside the reportable range. He was admitted to [facility] the first week of August. He had significant anemia and received a 2 unit red blood cell transfusion. He underwent EGD and colonoscopy. 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 Most significantly he had been having epistaxis in the few weeks prior to presentaton. This required packing. He also underwent a cauterization sometime in the last week or so but had significant right-sided epistaxis before coming in today. He is not on anticoagulation. He denies other bleeding problems. Previous therapy: 1) VCd x8 cycles. 2) Vd x2 cycles. 3) RVd x1 cycle--started lenalidomide 07/25/2017. 4) Rd. Current therapy: Revlimid on hold. Presents for ongoing hematologic management. Interim history: Having pain in left abdomen. It is been going on for about 3 weeks. It's a sharp pain in the mid left abdomen. No associated fever. No nausea or vomiting. He's been eating. No bloody stools. He's been more constipated than usual but his bowels moved yesterday and he had no relief of the pain. He is taking 2 glasses of Miralax a day. Is also using a stool softener/laxative. Otherwise he is tolerating Revlimid well. He has stable numbness of the toes and feet. He's not had any unusual bleeding or Bruising. No further hemorrhoidal bleeding. PMH, medications and allergies as below personally reviewed by me today. Any changes documented in appropriate section. ROS: Constitutional: See above. Neuro: No HODGES, dizziness or vertigo. Uses cane for occasional imbalance. HEENT: No recent change in voice, vision or hearing. Resp: No cough or sputum production. No wheeze. CVS: Denies PND and orthopnea. He has chronic mild swelling/pitting edema of both legs worse on the left secondary to previous vein harvest for bypass surgery--stable. GI: Denies symptoms of stomatitis. Denies dysphagia and odynophagia. Denies abdominal pain. : Denies dysuria or gross hematuria. No symptoms of bladder outlet obstruction. Endo: Denies hot flashes. Denies polyuria and polydipsia. Denies heat and cold intolerance. Musculoskeletal: Denies bone, joint and muscular pain. Stable lower back pain. Derm: Denies rash. Denies jaundice and diffuse pruritis. Heme: See above. Psych: Normal mood. PHYSICAL EXAM: Vitals: Blood pressure 135/78, pulse 65, temperature 36.7 ?C (98 ?F), weight 80.3 kg (177 lb). Well-appearing and in no acute distress. EYES: Sclerae are anicteric bilaterally. NECK: Supple. LYMPHATIC: There is no palpable cervical, supraclavicular adenopathy. RESPIRATORY: Inspiratory breath sounds are of normal intensity in all thakur. No rales, wheezes or rhonchi. CARDIOVASCULAR: Rhythm is regular. Normal intensity S1/S2. ABDOMEN: The abdomen is nondistended. No organomegaly. Mild to moderately tender in the mid left abdomen. No rebound or voluntary guarding. Extremities: Mild swelling with trace edema of distal LEs. SKIN: No rash. No petechiae. NEUROLOGIC: ore trimmer II-XII are grossly intact. No focal motor weakness--symmetric diffuse weakness of the legs. MUSCULOSKELETAL: No muscle wasting. LABS: Component Latest Ref Rng AND Units 08/21/2016 11/14/2017 12/22/2017 01/26/2018 02/16/2018 Protein, Total 6.0 - 8.4 g/dL 13.6 (H) 5.9 (L) 6.3 6.6 7.0 Albumin for SPE 3.37 - 4.23 gm/dL 3.93 2.94 (L) 3.16 (L) 3.50 3.64 Alpha 1 Globulin 0.18 - 0.31 gm/dL 0.25 0.35 (H) 0.31 0.33 (H) 0.31 Alpha 2 Globulin 0.52 - 0.97 gm/dL 0.71 1.03 (H) 1.04 (H) 0.95 0.96 Beta Globulin 0.84 - 1.36 gm/dL 0.65 (L) 1.01 1.00 0.99 1.06 Gamma Globulin 0.70 - 1.44 gm/dL 8.06 (H) 0.57 (L) 0.79 0.83 1.04 Interpretation (Prot Electro) SEE COMMENT SEE COMMENT SEE COMMENT SEE COMMENT SEE COMMENT M-Protein Location Gamma fraction N/A N/A N/A N/A M-Protein Concentration 0.00 gm/dL 7.50 (H) 0.00 0.00 0.00 0.00 SPE Staff Review Reviewed by Glen Chapa MD ([id number]) Reviewed by Yaniv Rowell M.D. ([id number]) Reviewed by Yaniv Rowell M.D. ([id number]) Reviewed by Anthony Marrero MD. ([id number]) Reviewed by Yaniv Rowell M.D. ([id number]) Component Latest Ref Rng AND Units 08/21/2016 12/31/2016 09/18/2017 10/16/2017 11/14/2017 12/22/2017 01/26/2018 [place] Free, Serum 3.30 - 19.40 mg/L 1,236.0 (H) 77.8 (H) 23.9 (H) 30.8 (H) 37.1 (H) 10.8 13.7 Lambda Free, Serum 5.7 - 26.3 mg/L 5.8 8.9 14.8 16.6 22.2 9.7 11.2 K/L Ratio, Serum 0.26 - 1.65 213.10 (H) 8.74 (H) 1.61 1.86 (H) 1.67 (H) 1.11 1.22 ASSESSMENT/PLAN: (C90.00) Multiple myeloma not having achieved remission (HCC) (primary encounter diagnosis) (D75.9) Hyperviscosity Assessment: -IgG kappa multiple myeloma. -Symptomatic anemia presentation requiring transfusion. -He also had significantly elevated serum protein with some symptoms of hyperviscosity including epistaxis and previous GI bleeding. -M-protein undetectable since November. -Discussed plan to continue Revlimid 15 mg dose without dexamethasone as maintenance therapy. Plan: -Revlimid 15 mg for 21 days. Supportive care: Hematology: Does not require blood transfusion. Renal: Normal creatinine at baseline--clinically no evidence for renal dysfunction. Infectious diseases: Acyclovir stopped after 6 months of therapy beyond bortezomib. Musculoskeletal: Bisphoshonates--No obvious lytic lesions at baseline evaluation and baseline DEXA showed normal bone density. This is in keeping with the [facility] care-path guidelines to hold on bisphosphonate therapy. Venous thromboembolism risk: Continue low dose ASA and Plavix. Neurology: Baseline neuropathy improved and now stable. (R10.32) LLQ pain Assessment: -No leukocytosis or fever. -Etiology of pain not clear. -Had colonoscopy early last year. Plan: -CT abdomen and pelvis. Robel Madden DO Referring Provider: ROBEL MADDEN [[id number]] Allergies As of Date: 05/13/2018 (No Known Allergies) Date Reviewed: 05/13/2018 Reviewed by: Holly Fish (Director Index) MADISON Patel - Fully Assessed Reason for Visit: Established Patient [[id number]] Primary Visit Diagnosis:Multiple myeloma not having achieved remission (HCC) [C90.00] Other Visit Diagnosis:LLQ pain [R10.32] Order(s):XR BONE SURVEY ROUTINE [[id number]] Order #: [id number] FUTURE CT ABD/PEL W IVCON [[id number]] Order #: [id number] FUTURE iv contrast (will be provided with radiology test)CT ABD/PEL -Inject, intravenously, once for 1 dose.No IV access, insert saline lock prior to the beginning of sedation, infusion, injection of imaging exam. Discontinue saline lock post exam. If Pt. has a central line or IVAD, may access for administration according to line specific nursing protocol. Once exam is complete flush line and de- access according to line specific nursing protocol in the CT contrast administration guidelines link.Disp: 1 EachRfl: 0 enteric contrast (will be provided with radiology test)For CT ABD/PEL W IVCON Routine order Administer, As Directed One Time Only, via Oral, Rectal, both Oral and Rectal, Enteric Tube, Stoma or Indwelling Catheter, Enteric Contrast as designated per enteric contrast guidelinesDisp: 1 EachRfl: 0 Follow-up and Disposition History Recorded Prescriptions as of 05/13/2018 Sig: LENALIDOMIDE 15 MG CAPSULE Take 1 capsule by mouth once * POTASSIUM CHLORIDE ER 20 MEQ * Take 1 tablet by mouth once d* ACYCLOVIR 400 MG TABLET Take 1 tablet by mouth twice * SODIUM CHLORIDE 0.9% FLUSH Access implanted vascular acc* HEPARIN, PORCINE (PF) 100 UNI* Access implanted vascular acc* TRIAMCINOLONE ACETONIDE 0.025* Apply 1 application to affect* OXYBUTYNIN CHLORIDE ER 10 MG * Take 10 mg by mouth once juan miguel* CLOPIDOGREL 75 MG TABLET Take 75 mg by mouth once juan miguel* DULCOLAX (BISACODYL) ORAL Take 1 tablet by mouth as nee* ONDANSETRON HCL 8 MG TABLET TAKE ONE TABLET BY MOUTH EVER* SENNOSIDES 8.6 MG-DOCUSATE SO* Take 1 tablet by mouth once d* VITAMINS AND MINERALS ORAL Take by mouth once daily. HYDROCODONE 10 MG-ACETAMINOPH* Take 1 tablet by mouth every * TAMSULOSIN 0.4 MG CAPSULE Take 0.4 mg by mouth once donna* VYTORIN 10 MG-80 MG TABLET daily at bedtime. * AMLODIPINE 10 MG-BENAZEPRIL 2* Take one(1) tablet daily. * PIOGLITAZONE 45 MG TABLET Take one(1) tablet daily. * VALSARTAN 320 MG-HYDROCHLOROT* Take one(1) tablet daily. * ASPIRIN 81 MG CHEWABLE TABLET Take one(1) tablet daily. * GABAPENTIN 100 MG CAPSULE Take one(1) tablet 2-3 times * IV CONTRAST (RADIOLOGY PROCED* CT ABD/PEL -Inject, intraveno* ENTERIC CONTRAST (RADIOLOGY P* For CT ABD/PEL W IVCON Routin* NYSTATIN 100,000 UNIT/ML ORAL* Take 5 mL by mouth four times* Patient not taking: Reported on 02/16/2018 OXYBUTYNIN CHLORIDE ER 5 MG T* Take 5 mg by mouth once daily* PANTOPRAZOLE 40 MG TABLET,DEL* Take 40 mg by mouth once juan miguel* FUROSEMIDE 20 MG TABLET Take 20 mg by mouth once juan miguel* Medication notes this encounter FUROSEMIDE 20 MG TABLET >> Holly Patel LPN, MADISON 05/13/2018 11:53 AM >> HOLLY PATEL FriMay 13, 2018 11:53 AM On hold Problem List As Of Date 05/13/2018 Noted Resolved Hypertension [I10] INVALID FOR* Hypercholesteremia [E78.00] INVALID FOR* PAD (peripheral artery disease) [I73.9] INVALID FOR* Nevus [D22.9] INVALID FOR*09/06/2016 Multiple myeloma not having achieved remission *INVALID FOR* 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 FOR* 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 chemotherapy [D64.*INVALID FOR* Iron deficiency anemia due to chronic blood los*INVALID FOR* Iron malabsorption [K90.9] INVALID FOR* Visit Notes: >> Holly Patel LPN FriMay 13, 2018 11:55 AM Status: Signed Est pt, discuss recent lab results Holly Patel LPN Encounter Status:Closed by ROBEL MADDEN DO on 05/13/18 PROGRESS Observed: 05/12/2018 Status: COMPLETED Source: [place] 4:48 PM [facility] REPOSITORY O ID: [id number] Author: Rola Ford (Sw) Service: (none) Author Type: Certified Orthotic Fitter Type: Progress Notes Filed: 05/12/2018 4:51 PM Note Text: SOCIAL WORK FOLLOW UP NOTE: [facility] Date of service: May 12, 2018 Glendy Flores Jr. is being seen for a follow up social work visit. Today's visit includes: spouse and [employer] treasury representative, Marcie ( , option 1, extension [phone]) TOPICS ADDRESSED: Finances; DAI received call from Marcie with [employer] regarding patient's application. They wanted to know if new income for 2019 was known at this point. DAI called patient and spoke with his . She still does not know how much different income will be for 2019. DAI relayed this information to Marcie. Patient's spouse reports they have somebody from their insurance provider coming out this (05/14/18) to discuss coverage and other needs. Patient's spouse is agreeable to calling DAI if any other needs arise. PLAN: Continue follow up as needed F/U APPOINTMENT: CARISA Pond CNSW Observed: 05/12/2018 Status: COMPLETED Source: [place] 12:00 AM [facility] REPOSITORY Social Work (HEMAWS) GLENDY FLORES JR. ([id number]) 1940 M Date Time Provider Department 05/12/18 ROLA FORD (DAI) ZOIE During your visit today, we recorded the following information about you: CARISA Raines 05/12/2018 4:51 PM Signed SOCIAL WORK FOLLOW UP NOTE: [facility] Date of service: May 12, 2018 Glendy Flores Jr. is being seen for a follow up social work visit. Today's visit includes: spouse and [employer] treasury representative, Marcie ( , option 1, extension [phone]) TOPICS ADDRESSED: Finances; DAI received call from Marcie with [employer] regarding patient's application. They wanted to know if new income for 2019 was known at this point. DAI called patient and spoke with his . She still does not know how much different income will be for 2019. DAI relayed this information to Marcie. Patient's spouse reports they have somebody from their insurance provider coming out this (05/14/18) to discuss coverage and other needs. Patient's spouse is agreeable to calling DAI if any other needs arise. PLAN: Continue follow up as needed F/U APPOINTMENT: CARISA Pond Allergies As of Date: 05/12/2018 (No Known Allergies) Date Reviewed: 04/01/2018 Reviewed by: Gosia Samayoa (Rn) JOSEY Olivier - Fully Assessed Reason for Visit: Social Work Services [507] Prescriptions as of 05/12/2018 Sig: LENALIDOMIDE 15 MG CAPSULE Take 1 capsule by mouth once * POTASSIUM CHLORIDE ER 20 MEQ * Take 1 tablet by mouth once d* ACYCLOVIR 400 MG TABLET Take 1 tablet by mouth twice * SODIUM CHLORIDE 0.9% FLUSH Access implanted vascular acc* HEPARIN, PORCINE (PF) 100 UNI* Access implanted vascular acc* TRIAMCINOLONE ACETONIDE 0.025* Apply 1 application to affect* Patient not taking: Reported on 01/26/2018 OXYBUTYNIN CHLORIDE ER 10 MG * Take 10 mg by mouth once juan miguel* NYSTATIN 100,000 UNIT/ML ORAL* Take 5 mL by mouth four times* Patient not taking: Reported on 02/16/2018 CLOPIDOGREL 75 MG TABLET Take 75 mg by mouth once juan miguel* OXYBUTYNIN CHLORIDE ER 5 MG T* Take 5 mg by mouth once daily* PANTOPRAZOLE 40 MG TABLET,DEL* Take 40 mg by mouth once juan miguel* DULCOLAX (BISACODYL) ORAL Take 1 tablet by mouth as nee* ONDANSETRON HCL 8 MG TABLET TAKE ONE TABLET BY MOUTH EVER* SENNOSIDES 8.6 MG-DOCUSATE SO* Take 1 tablet by mouth once d* VITAMINS AND MINERALS ORAL Take by mouth once daily. FUROSEMIDE 20 MG TABLET Take 20 mg by mouth once juan miguel* HYDROCODONE 10 MG-ACETAMINOPH* Take 1 tablet by mouth every * TAMSULOSIN 0.4 MG CAPSULE Take 0.4 mg by mouth once donna* VYTORIN 10 MG-80 MG TABLET daily at bedtime. * AMLODIPINE 10 MG-BENAZEPRIL 2* Take one(1) tablet daily. * PIOGLITAZONE 45 MG TABLET Take one(1) tablet daily. * VALSARTAN 320 MG-HYDROCHLOROT* Take one(1) tablet daily. * ASPIRIN 81 MG CHEWABLE TABLET Take one(1) tablet daily. 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 [D64.*INVALID FOR* Iron deficiency anemia due to chronic blood los*INVALID FOR* Iron malabsorption [K90.9] INVALID FOR* Encounter Status:Closed by ROLA FORD on 05/12/18 [facility] ABS GR + CBC Collected: 04/29/2018 Status: F Source: [place] 3:45 PM [facility] REPOSITORY TYPE CODE TESTS RESULT OUT OF REFERENCE UNITS RANGE LAB WWBC 3.70-11.00 k/uL [place] WBC 6.43 LAB WRBC 4.20-6.00 m/uL Low [place] RBC 3.05 LAB WHGB 13.0-17.0 g/dL Low [place] Hemoglobin 10.0 LAB WHCT 39.0-51.0 % Low [place] Hematocrit 29.6 LAB WMCV 80.0-100.0 fL [place] MCV 97.0 LAB WMCH 26.0-34.0 pg [place] MCH 32.8 LAB WMCHC 30.5-36.0 g/dL [place] MCHC 33.8 LAB WRDW 11.5-15.0 % [place] RDW 14.7 LAB WPLT 150-400 k/uL Low [place] Platelet Cnt 147 LAB WMPV 9.0-12.7 fL [place] MPV 10.3 Result Comment: Test performed at: [facility], [address] [place] [address] Rd[address] [place] [address]. LAB ABGRAN 1.45-7.50 k/uL Absol Gran 2.77 Count COMP METABOLIC PANEL Collected: 04/29/2018 Status: F Source: [place] 3:45 PM [facility] REPOSITORY TYPE CODE TESTS RESULT OUT OF REFERENCE UNITS RANGE LAB TP 6.3-8.0 g/dL Protein, Total 7.4 LAB ALB 3.9-4.9 g/dL Albumin 3.9 LAB CA 8.5-10.2 mg/dL Calcium, Total 9.4 LAB TBIL 0.2-1.3 mg/dL Bilirubin, Total 0.4 LAB ALKP 38-113 U/L Alkaline Phosphatase 91 LAB AST 14-40 U/L AST 14 LAB GLU 74-99 mg/dL Glucose High 205 LAB BUN 9-24 mg/dL BUN 16 LAB CRET 0.73-1.22 mg/dL Creatinine High 1.51 LAB NA 136-144 mmol/L Sodium Low 128 LAB K 3.7-5.1 mmol/L Potassium Low 3.2 LAB CL 97-105 mmol/L Chloride Low 93 LAB CO2 22-30 mmol/L CO2 22 LAB AGAP 9-18 mmol/L Anion Gap 13 LAB ALT 10-54 U/L ALT 17 LAB GFRAA eGFR- 54 Amer. LAB GFRNAA . eGFR-All Other Races 45 Result Comment: eGFR (Estimated GFR) Units of measure: mL/min/1.73 meters squared eGFR is derived from the reexpressed MDRD Study equation using the following parameters: serum creatinine, age, gender and race. The creatinine assay has been calibrated to be traceable to IDMS. An eGFR <60 mL/min/1.73m2 for >3 months is consistent with chronic kidney disease. Refer to KDOQI guidelines for clinical interpretation. In patients with unstable renal function, e.g. those with acute kidney injury, the eGFR may not accurately reflect actual GFR. PSA, DIAGNOSTIC Collected: 04/29/2018 Status: F Source: [place] 3:45 PM [facility] REPOSITORY TYPE CODE TESTS RESULT OUT OF REFERENCE UNITS RANGE LAB PSA 0.00-2.59 ng/mL PSA, High Diagnostic 24.06 Result Comment: Total PSA test methodology used is the Electrochemiluminescence Immunoassay. For an individual patient, the significance of a PSA level should be interpreted in a broad clinical context, including age, race, family history, digital rectal exam, prostate size, results of prior te sting (prostate biopsy, free PSA, PCA3), and use of 5-alpha reductase inhibitors. Considering the high incidence of asymptomatic cancer in the general population that may not pose an ultimate risk to a patient, the decision to recommend urological evaluation or prostate biopsy should be individualized after consideration of all these factors. REFERENCE: Brandy Noble M.D., M.P.H., Glen Luther M.D., Ph.D., Joe Walker M.D., Amaya Loja, M.P.H., Kayla Holm, ScNilayD. Effect of Verification Bias on Screening for Prostate Cancer by Measurement of Prostatic Specific Antigen. N Engl J Med 2003,349:335-42. Performed By: #### PSA #### [facility] [address] [place], [place] [address] RACHAEL Observed: 04/20/2018 Status: COMPLETED Source: [place] 12:00 AM [facility] REPOSITORY Telephone (HEMAWS) GLENDY FLORES JR. ([id number]) 1940 M Date Time Provider Department 04/20/18 ROBEL MADDEN During your visit today, we recorded the following information about you: Rebecca Kemp LPN 04/20/2018 11:[address] Sparks asking that we draw PSA with next lab appointment. Please file if okay. Rebecca Madden DO 04/20/2018 12:18 PM Signed Sure. Order filed. Robel Madden DO Allergies As of Date: 04/20/2018 (No Known Allergies) Date Reviewed: 04/01/2018 Reviewed by: Gosia Samayoa (Rn) JOSEY Olivier - Fully Assessed Reason for Visit: Orders [681] Primary Visit Diagnosis:Elevated prostate specific antigen (PSA) [R97.20] Order(s):PSA/PROSTSPECAG DIAG [SQPSA] Order #: [id number] FUTURE Prescriptions as of 04/20/2018 Sig: SODIUM CHLORIDE 0.9% FLUSH Access implanted vascular acc* ACYCLOVIR 400 MG TABLET Take 1 tablet by mouth twice * * AMLODIPINE 10 MG-BENAZEPRIL 2* Take one(1) tablet daily. * ASPIRIN 81 MG CHEWABLE TABLET Take one(1) tablet daily. CLOPIDOGREL 75 MG TABLET Take 75 mg by mouth once juan miguel* DULCOLAX (BISACODYL) ORAL Take 1 tablet by mouth as nee* FUROSEMIDE 20 MG TABLET Take 20 mg by mouth once juan miguel* * GABAPENTIN 100 MG CAPSULE Take one(1) tablet 2-3 times * HEPARIN, PORCINE (PF) 100 UNI* Access implanted vascular acc* HYDROCODONE 10 MG-ACETAMINOPH* Take 1 tablet by mouth every * LENALIDOMIDE 15 MG CAPSULE Take 1 capsule by mouth once * VITAMINS AND MINERALS ORAL Take by mouth once daily. NYSTATIN 100,000 UNIT/ML ORAL* Take 5 mL by mouth four times* Patient not taking: Reported on 02/16/2018 ONDANSETRON HCL 8 MG TABLET TAKE ONE TABLET BY MOUTH EVER* OXYBUTYNIN CHLORIDE ER 10 MG * Take 10 mg by mouth once juan miguel* OXYBUTYNIN CHLORIDE ER 5 MG T* Take 5 mg by mouth once daily* PANTOPRAZOLE 40 MG TABLET,DEL* Take 40 mg by mouth once juan miguel* * PIOGLITAZONE 45 MG TABLET Take one(1) tablet daily. POTASSIUM CHLORIDE ER 20 MEQ * Take 1 tablet by mouth once d* SENNOSIDES 8.6 MG-DOCUSATE SO* Take 1 tablet by mouth once d* TAMSULOSIN 0.4 MG CAPSULE Take 0.4 mg by mouth once donna* TRIAMCINOLONE ACETONIDE 0.025* Apply 1 application to affect* Patient not taking: Reported on 01/26/2018 * VALSARTAN 320 MG-HYDROCHLOROT* Take one(1) tablet daily. VYTORIN 10 MG-80 MG TABLET daily at bedtime. 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 is being seen for a follow up social work visit. Today's visit includes: spouse TOPICS ADDRESSED: Finances; DAI called patient to follow-up regarding applying for [employer]. DAI was informed by patient's spouse that they were over income for this program, so they are going to pay for the medication and once they meet their $5,000 deductible they will only be responsible for 5% of the cost. DAI also called [employer] back to see if patient may still be eligible for funds through them, but they are also over income guidelines for [employer]. They could not disclose what their income cap is. DAI will meet with patient's spouse next year to figure out if income changes at all so we can then see if patient's income falls within program guidelines. PLAN: Continue follow up as needed F/U APPOINTMENT: CARISA Pond CNSPrakash Observed: 04/10/2018 Status: COMPLETED Source: [place] 12:00 AM [facility] REPOSITORY Social Work (ZOIE) GLENDY FLORES JR. ([id number]) 1940 M Date Time Provider Department 04/10/18 ROLA FORD (SW) During your visit today, we recorded the following information about you: CARISA Raines 04/10/2018 11:46 AM Addendum SOCIAL WORK FOLLOW UP NOTE: [facility] [place] Date of service: April 10, 2018 Glendy Flores Jr. is being seen for a follow up social work visit. Today's visit includes: spouse TOPICS ADDRESSED: Finances; DAI called patient to follow-up regarding applying for [employer]. DAI was informed by patient's spouse that they were over income for this program, so they are going to pay for the medication and once they meet their $5,000 deductible they will only be responsible for 5% of the cost. DAI also called [employer] back to see if patient may still be eligible for funds through them, but they are also over income guidelines for [employer]. They could not disclose what their income cap is. SW will meet with patient's spouse next year to figure out if income changes at all so we can then see if patient's income falls within program guidelines. PLAN: Continue follow up as needed F/U APPOINTMENT: CARISA Pond Allergies As of Date: 04/10/2018 (No Known Allergies) Date Reviewed: 04/01/2018 Reviewed by: Gosia Samayoa (Rn) JOSEY Olivier - Fully Assessed Reason for Visit: Social Work Services [507] Prescriptions as of 04/10/2018 Sig: LENALIDOMIDE 15 MG CAPSULE Take 1 capsule by mouth once * POTASSIUM CHLORIDE ER 20 MEQ * Take 1 tablet by mouth once d* ACYCLOVIR 400 MG TABLET Take 1 tablet by mouth twice * SODIUM CHLORIDE 0.9% FLUSH Access implanted vascular acc* HEPARIN, PORCINE (PF) 100 UNI* Access implanted vascular acc* TRIAMCINOLONE ACETONIDE 0.025* Apply 1 application to affect* Patient not taking: Reported on 01/26/2018 OXYBUTYNIN CHLORIDE ER 10 MG * Take 10 mg by mouth once juan miguel* NYSTATIN 100,000 UNIT/ML ORAL* Take 5 mL by mouth four times* Patient not taking: Reported on 02/16/2018 CLOPIDOGREL 75 MG TABLET Take 75 mg by mouth once juan miguel* OXYBUTYNIN CHLORIDE ER 5 MG T* Take 5 mg by mouth once daily* PANTOPRAZOLE 40 MG TABLET,DEL* Take 40 mg by mouth once juan miguel* DULCOLAX (BISACODYL) ORAL Take 1 tablet by mouth as nee* ONDANSETRON HCL 8 MG TABLET TAKE ONE TABLET BY MOUTH EVER* SENNOSIDES 8.6 MG-DOCUSATE SO* Take 1 tablet by mouth once d* VITAMINS AND MINERALS ORAL Take by mouth once daily. FUROSEMIDE 20 MG TABLET Take 20 mg by mouth once juan miguel* HYDROCODONE 10 MG-ACETAMINOPH* Take 1 tablet by mouth every * TAMSULOSIN 0.4 MG CAPSULE Take 0.4 mg by mouth once donna* VYTORIN 10 MG-80 MG TABLET daily at bedtime. * AMLODIPINE 10 MG-BENAZEPRIL 2* Take one(1) tablet daily. * PIOGLITAZONE 45 MG TABLET Take one(1) tablet daily. * VALSARTAN 320 MG-HYDROCHLOROT* Take one(1) tablet daily. * ASPIRIN 81 MG CHEWABLE TABLET Take one(1) tablet daily. 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 77 year old male was referred by family - Name: [facility] for the following reason(s): financial assistance - meals, parking, etc. PERSONS INTERVIEWED: family - Name: spouse Holly INTERVENTION: Phone Contact Affect/Mood: The patient is noted as patient not present IDENTIFIED PROBLEMS/NEEDS: Financial Intervention/Referral to be provided:Arrangements made for continuity of care Financial: Applications(s) sent to: Other: [employer] IMPRESSION/PLAN: Patient's spouse called [employer] to report their co-pay for Revlim[employer] increased since switching to their new insurance. DAI completed application for assistance through [employer] and faxed to [employer] Patient Assistance. Patient's spouse denies other needs. F/U APPOINTMENT: CARISA Pond Observed: 04/07/2018 Status: COMPLETED Source: [place] 12:00 AM [facility] REPOSITORY Social Work (HEMAWS) GLENDY FLORES JR. ([id number]) 1940 M Date Time Provider Department 04/07/18 ROLA FORD) ZOIE During your visit today, we recorded the following information about you: CARISA Raines 04/07/2018 2:23 PM Signed Social Work Problem Referral Note INFORMATION/REFERRAL : Glendyluna Flores 77 year old male was referred by family - Name: spouse Holly to [facility] for the following reason(s): financial assistance - meals, parking, etc. PERSONS INTERVIEWED: family - Name: spouse Holly INTERVENTION: Phone Contact Affect/Mood: The patient is noted as patient not present IDENTIFIED PROBLEMS/NEEDS: Financial Intervention/Referral to be provided:Arrangements made for continuity of care Financial: Applications(s) sent to: Other: [employer] IMPRESSION/PLAN: Patient's spouse called [employer] to report their co-pay for [employer] increased since switching to their new insurance. DAI completed application for assistance through [employer] and faxed to [employer] Patient Assistance. Patient's spouse denies other needs. F/U APPOINTMENT: PRN CARISA Raines Allergies As of Date: 04/07/2018 (No Known Allergies) Date Reviewed: 04/01/2018 Reviewed by: Gosia Samayoa (Rn) JOSEY Olivier - Fully Assessed Reason for Visit: Social Work Services [507] Prescriptions as of 04/07/2018 Sig: LENALIDOMIDE 15 MG CAPSULE Take 1 capsule by mouth once * POTASSIUM CHLORIDE ER 20 MEQ * Take 1 tablet by mouth once d* ACYCLOVIR 400 MG TABLET Take 1 tablet by mouth twice * SODIUM CHLORIDE 0.9% FLUSH Access implanted vascular acc* HEPARIN, PORCINE (PF) 100 UNI* Access implanted vascular acc* TRIAMCINOLONE ACETONIDE 0.025* Apply 1 application to affect* Patient not taking: Reported on 01/26/2018 OXYBUTYNIN CHLORIDE ER 10 MG * Take 10 mg by mouth once juan miguel* NYSTATIN 100,000 UNIT/ML ORAL* Take 5 mL by mouth four times* Patient not taking: Reported on 02/16/2018 CLOPIDOGREL 75 MG TABLET Take 75 mg by mouth once juan miguel* OXYBUTYNIN CHLORIDE ER 5 MG T* Take 5 mg by mouth once daily* PANTOPRAZOLE 40 MG TABLET,DEL* Take 40 mg by mouth once juan miguel* DULCOLAX (BISACODYL) ORAL Take 1 tablet by mouth as nee* ONDANSETRON HCL 8 MG TABLET TAKE ONE TABLET BY MOUTH EVER* SENNOSIDES 8.6 MG-DOCUSATE SO* Take 1 tablet by mouth once d* VITAMINS AND MINERALS ORAL Take by mouth once daily. FUROSEMIDE 20 MG TABLET Take 20 mg by mouth once juan miguel* HYDROCODONE 10 MG-ACETAMINOPH* Take 1 tablet by mouth every * TAMSULOSIN 0.4 MG CAPSULE Take 0.4 mg by mouth once donna* VYTORIN 10 MG-80 MG TABLET daily at bedtime. * AMLODIPINE 10 MG-BENAZEPRIL 2* Take one(1) tablet daily. * PIOGLITAZONE 45 MG TABLET Take one(1) tablet daily. * VALSARTAN 320 MG-HYDROCHLOROT* Take one(1) tablet daily. * ASPIRIN 81 MG CHEWABLE TABLET Take one(1) tablet daily. 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] INVALID FOR* Encounter Status:Closed by ROLA FORD on 04/07/18 [facility] ABS GR + CBC Collected: 04/01/2018 Status: F Source: [place] 12:00 PM [facility] REPOSITORY TYPE CODE TESTS RESULT OUT OF REFERENCE UNITS RANGE LAB WWBC 3.70-11.00 k/uL [place] WBC 4.79 LAB WRBC 4.20-6.00 m/uL Low [place] RBC 3.21 LAB WHGB 13.0-17.0 g/dL Low [place] Hemoglobin 10.4 LAB WHCT 39.0-51.0 % Low [place] Hematocrit 31.1 LAB WMCV 80.0-100.0 fL [place] MCV 96.9 LAB WMCH 26.0-34.0 pg [place] MCH 32.4 LAB WMCHC 30.5-36.0 g/dL [place] MCHC 33.4 LAB WRDW 11.5-15.0 % [place] RDW 14.9 LAB WPLT 150-400 k/uL Low [place] Platelet Cnt 139 LAB WMPV 9.0-12.7 fL [place] MPV 11.0 Result Comment: Test performed at: [facility], [address] [place] [address]. LAB ABGRAN 1.45-7.50 k/uL Absol Gran 2.06 Count COMP METABOLIC PANEL Collected: 04/01/2018 Status: F Source: [place] 12:00 PM [facility] REPOSITORY TYPE CODE TESTS RESULT OUT OF REFERENCE UNITS RANGE LAB TP 6.3-8.0 g/dL Protein, Total 6.9 LAB ALB 3.9-4.9 g/dL Albumin 3.9 LAB CA 8.5-10.2 mg/dL Calcium, Total 9.1 LAB TBIL 0.2-1.3 mg/dL Bilirubin, Total 0.2 LAB ALKP 38-113 U/L Alkaline Phosphatase 95 LAB AST 14-40 U/L AST 14 LAB GLU 74-99 mg/dL Glucose High 233 LAB BUN 9-24 mg/dL BUN 9 LAB CRET 0.73-1.22 mg/dL Creatinine 0.92 LAB NA 136-144 mmol/L Sodium Low 130 LAB K 3.7-5.1 mmol/L Potassium Low 3.5 LAB CL 97-105 mmol/L Chloride Low 94 LAB CO2 22-30 mmol/L CO2 25 LAB AGAP 9-18 mmol/L Anion Gap 11 LAB ALT 10-54 U/L ALT 15 LAB GFRAA eGFR- >60 Amer. LAB GFRNAA . eGFR-All Other Races >60 Result Comment: eGFR (Estimated GFR) Units of measure: mL/min/1.73 meters squared eGFR is derived from the reexpressed MDRD Study equation using the following parameters: serum creatinine, age, gender and race. The creatinine assay has been calibrated to be traceable to IDMS. An eGFR <60 mL/min/1.73m2 for >3 months is consistent with chronic kidney disease. Refer to KDOQI guidelines for clinical interpretation. In patients with unstable renal function, e.g. those with acute kidney injury, the eGFR may not accurately reflect actual GFR. COMP METABOLIC PANEL Collected: 03/11/2018 Status: F Source: [place] 2:40 PM [facility] REPOSITORY TYPE CODE TESTS RESULT OUT OF REFERENCE UNITS RANGE LAB TP 6.3-8.0 g/dL Protein, Total 6.9 LAB ALB 3.9-4.9 g/dL Albumin 3.9 LAB CA 8.5-10.2 mg/dL Calcium, Total 9.3 LAB TBIL 0.2-1.3 mg/dL Bilirubin, Total 0.2 LAB ALKP 38-113 U/L Alkaline Phosphatase 96 LAB AST 14-40 U/L AST 14 LAB GLU 74-99 mg/dL Glucose High 199 LAB BUN 7-21 mg/dL BUN 19 LAB CRET 0.73-1.22 mg/dL Creatinine 1.03 LAB NA 136-144 mmol/L Sodium Low 133 LAB K 3.7-5.1 mmol/L Potassium Low 3.3 LAB CL 97-105 mmol/L Chloride 97 LAB CO2 22-30 mmol/L CO2 25 LAB AGAP 9-18 mmol/L Anion Gap 11 LAB ALT 10-54 U/L ALT 13 LAB GFRAA eGFR- >60 Amer. LAB GFRNAA . eGFR-All Other Races >60 Result Comment: eGFR (Estimated GFR) Units of measure: mL/min/1.73 meters squared eGFR is derived from the reexpressed MDRD Study equation using the following parameters: serum creatinine, age, gender and race. The creatinine assay has been calibrated to be traceable to IDMS. An eGFR <60 mL/min/1.73m2 for >3 months is consistent with chronic kidney disease. Refer to KDOQI guidelines for clinical interpretation. In patients with unstable renal function, e.g. those with acute kidney injury, the eGFR may not accurately reflect actual GFR. DAVID ABS GR + CBC Collected: 03/11/2018 Status: F Source: [place] 2:39 PM [facility] [facility] REPOSITORY TYPE CODE TESTS RESULT OUT OF REFERENCE UNITS RANGE LAB WWBC 3.70-11.00 k/uL [place] WBC 5.47 LAB WRBC 4.20-6.00 m/uL Low [place] RBC 3.11 LAB WHGB 13.0-17.0 g/dL Low [place] Hemoglobin 10.3 LAB WHCT 39.0-51.0 % Low [place] Hematocrit 30.4 LAB WMCV 80.0-100.0 fL [place] MCV 97.7 LAB WMCH 26.0-34.0 pg [place] MCH 33.1 LAB WMCHC 30.5-36.0 g/dL [place] MCHC 33.9 LAB WRDW 11.5-15.0 % [place] RDW 15.0 LAB WPLT 150-400 k/uL [place] Platelet Cnt 205 LAB WMPV 9.0-12.7 fL [place] MPV 10.0 Result Comment: Test performed at: [facility], [address] [place] [address]. LAB ABGRAN 1.45-7.50 k/uL Absol Gran 1.93 Count PROGRESS Observed: 02/16/2018 Status: COMPLETED Source: [place] 3:17 PM [facility] REPOSITORY HNO ID: [id number] Author: Robel Madden Service: (none) Author Type: Physician Type: Progress Notes Filed: 02/16/2018 3:38 PM Note Text: Diagnosis: 1) Multiple myeloma. Baseline assessment on initial diagnosis: IMWG criteria, [place] Journal of Haematology 121: 749?57, 2003, update in: Júnior et al. Leukemia 20: 1467-73, 2006 and at IMW meeting Jaye 2010 ? Symptomatic multiple myeloma: IgG kappa. ? Related Organ or Tissue Involvement (CRAB) or other Myeloma Defining Event (MDE): Anemia requiring transfusion. Otherwise, baseline bone survey 09/04/2016 revealed no lytic lesions. Baseline serum calcium, ionized value 1.2 mmol per liter. Baseline serum creatinine 1.2 mg/dL. ? Antecedent plasma cell dyscrasia: None known. ? Myeloma FISH panel: 13q14 (RB1): ? ? 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 ?Normal pattern 14q32 (IGH): ? ? 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 The translocation partner cannot be identified. These corresponds to standard risk disease. ? Cytogenetics: Pending. ? LDH: 210 (135-225 U/L) ? ISS stage: B2M not drawn. ? [place] Durie Stage: III (anemia with Hgb < 8.5 g/dL) ? Monoclonal proteins at diagnosis: Serum M-spike: 7.5 gm/dL, Involved serum free light chains: scskv=0277.0 mg/L, Uninvolved serum free light chains: lambda= 5.8 mg/L. ? Bone marrow plasma cell infiltration: 22%. HPI: The patient is a 77 yo male with PMH significant for CAD, PVD, HTN and DM2. The patient had a CBC done on 01/23/2016. At that time the white count was 6300. Hemoglobin was 10.6 g/dL and the platelet count 179,000. Chemistries at that time included a basic metabolic profile that showed a creatinine of 1.0 mg/dL. Patient had repeat CBC on 07/12/2016. The hemoglobin was noted to be 8.7 g/dL. The total white count was 6600. The differential was unremarkable. Platelet count 134,000. Chemistries were remarkable for a total serum protein at 14 g/dL. Albumin was 3.4 g/dL. Globulin fraction was not able to be determined. The remainder the chemistries were unremarkable and specifically the serum creatinine was 0.9. CBC was repeated on 07/22/2016 the hemoglobin was 8.5 g/dL. Again the total white count differential were normal. Platelet count 135,000 serum protein 14.1 g/dL. Globulin fraction was noted to be outside the reportable range. He was admitted to [facility] the first week of August. He had significant anemia and received a 2 unit red blood cell transfusion. He underwent EGD and colonoscopy. 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 Most significantly he had been having epistaxis in the few weeks prior to presentaton. This required packing. He also underwent a cauterization sometime in the last week or so but had significant right- sided epistaxis before coming in today. He is not on anticoagulation. He denies other bleeding problems. Previous therapy: 1) VCd x8 cycles. 2) Vd x2 cycles. 3) RVd x1 cycle--started lenalidomide 07/25/2017. 4) Rd. Current therapy: Revlimid on hold. Presents for ongoing hematologic management. Interim history: No further bleeding from hemorrhoids. No other unusual bleeding or unexplained bruising. Good appetite. No recent episode of fever. No history night sweats. Stable numbness toes and feet. PMH, medications and allergies as below personally reviewed by me today. Any changes documented in appropriate section. ROS: Constitutional: See above. Neuro: No HODGES, dizziness or vertigo. Uses cane for occasional imbalance. HEENT: No recent change in voice, vision or hearing. Resp: No cough or sputum production. No wheeze. CVS: Denies PND and orthopnea. He has chronic mild swelling/pitting edema of both legs worse on the left secondary to previous vein harvest for bypass surgery--stable. GI: Denies symptoms of stomatitis. Denies dysphagia and odynophagia. Denies abdominal pain. : Denies dysuria or gross hematuria. No symptoms of bladder outlet obstruction. Endo: Denies hot flashes. Denies polyuria and polydipsia. Denies heat and cold intolerance. Musculoskeletal: Denies bone, joint and muscular pain. Stable lower back pain. Derm: Denies rash. Denies jaundice and diffuse pruritis. Heme: See above. Psych: Normal mood. PHYSICAL EXAM: Vitals: There were no vitals taken for this visit. Well-appearing and in no acute distress. EYES: Sclerae are anicteric bilaterally. NECK: Supple. LYMPHATIC: There is no palpable cervical, supraclavicular adenopathy. RESPIRATORY: Inspiratory breath sounds are of normal intensity in all thakur. No rales, wheezes or rhonchi. CARDIOVASCULAR: Rhythm is regular. Normal intensity S1/S2. ABDOMEN: The abdomen is nondistended. No organomegaly. No tenderness. Extremities: Mild swelling with trace edema of distal LEs. SKIN: No rash. No petechiae. NEUROLOGIC: ore trimmer II-XII are grossly intact. No focal motor weakness--symmetric diffuse weakness of the legs. MUSCULOSKELETAL: No muscle wasting. ASSESSMENT/PLAN: (C90.00) Multiple myeloma not having achieved remission ([facility]) (primary encounter diagnosis) (D75.9) Hyperviscosity Assessment: -IgG kappa multiple myeloma. -Symptomatic anemia presentation requiring transfusion. -He also had significantly elevated serum protein with some symptoms of hyperviscosity including epistaxis and previous GI bleeding. -M-protein undetectable since November. -Discussed plan to continue Revlimid 15 mg dose without dexamethasone as maintenance therapy. Plan: -Revlimid 15 mg for 21 days. -Hold on dexamethasone. Supportive care: Hematology: Hemoglobin as been increasing. Renal: Normal creatinine at baseline--clinically no evidence for renal dysfunction. Infectious diseases: Can stop prophylactic acyclovir--has been just over 6 months since last bortezomib injection. Musculoskeletal: Bisphoshonates: No obvious lytic lesions at baseline evaluation and baseline DEXA showed normal bone density. This is in keeping with the [facility] care-path guidelines to hold on bisphosphonate therapy. Venous thromboembolism risk: He continues on low dose ASA and Plavix. He will continue these medications for now. control counseling: Neurology: Baseline neuropathy improved and now stable. (E11.51) Type 2 diabetes mellitus with diabetic peripheral angiopathy without gangrene, unspecified custodial insulin use status ([facility]) (I73.9) PAD (peripheral artery disease) ([facility]) -He will continue follow-up with his PCP for these issues. Robel Madden, DO [facility] ABS GR + CBC Collected: 02/16/2018 Status: F Source: [place] 3:15 PM [facility] REPOSITORY TYPE CODE TESTS RESULT OUT OF REFERENCE UNITS RANGE LAB WWBC 3.70-11.00 k/uL [place] WBC 5.03 LAB WRBC 4.20-6.00 m/uL Low [place] RBC 3.08 LAB WHGB 13.0-17.0 g/dL Low [place] Hemoglobin 10.2 LAB WHCT 39.0-51.0 % Low [place] Hematocrit 30.4 LAB WMCV 80.0-100.0 fL [place] MCV 98.7 LAB WMCH 26.0-34.0 pg [place] MCH 33.1 LAB WMCHC 30.5-36.0 g/dL [place] MCHC 33.6 LAB WRDW 11.5-15.0 % David High RDW 15.1 LAB WPLT 150-400 k/uL [facility] Platelet Cnt 231 LAB WMPV 9.0-12.7 fL [place] MPV 10.3 LAB ABGRAN 1.45-7.50 k/uL Absol Gran Count 2.53 COMP METABOLIC PANEL Collected: 02/16/2018 Status: F Source: [place] 3:14 PM [facility] REPOSITORY TYPE CODE TESTS RESULT OUT OF REFERENCE UNITS RANGE LAB TP 6.3-8.0 g/dL Protein, Total 7.4 LAB ALB 3.9-4.9 g/dL Low Albumin 3.8 LAB CA 8.5-10.2 mg/dL Calcium, Total 9.2 LAB TBIL 0.2-1.3 mg/dL Low Bilirubin, Total <0.2 LAB ALKP 38-113 U/L Alkaline Phosphatase 89 LAB AST 14-40 U/L AST 23 LAB GLU 74-99 mg/dL Glucose High 166 Result Comment: The [place] [employer] (ADA) provides guidance for cutoff values for fasting glucose and random glucose. The ADA defines fasting as no caloric intake for at least 8 hours. Fas ting plasma glucose results between 100 to 125 mg/dL indicate increased risk for diabetes (prediabetes). Fasting plasma glucose results greater than or equal to 126 mg/dL meet the criteria for diagnosis of diabetes. In the absence of unequivocal hyperglycemia, results should be confirmed by repeat testing. In a patient with classic symptoms of hyperglycemia or hyperglycemic crisis, random plasma glucose results greater than or equal to 200 mg/dL meet the criteria for diagnosis of diabetes. Reference: Standards of Medical Care in Diabetes 2016, [place] [employer] Association. Diabetes Care. 2016.39(Suppl 1). LAB BUN 9-24 mg/dL BUN 13 LAB CRET 0.73-1.22 mg/dL Creatinine 1.08 LAB NA 136-144 mmol/L Sodium Low 134 LAB K 3.7-5.1 mmol/L Potassium 3.8 LAB CL 97-105 mmol/L Chloride Low 94 LAB CO2 22-30 mmol/L CO2 23 LAB AGAP 9-18 mmol/L Anion Gap 17 LAB ALT 10-54 U/L ALT 18 LAB GFRAA eGFR- Amer. >60 LAB GFRNAA . eGFR-All Other Races >60 Result Comment: eGFR (Estimated GFR) Units of measure: mL/min/1.73 meters squared eGFR is derived from the reexpressed MDRD Study equation using the following parameters: serum creatinine, age, gender and race. The creatinine assay has been calibrated to be traceable to IDMS. An eGFR <60 mL/min/1.73m2 for >3 months is consistent with chronic kidney disease. Refer to KDOQI guidelines for clinical interpretation. In patients with unstable renal function, e.g. those with acute kidney injury, the eGFR may not accurately reflect actual GFR. Performed By: #### CMP, B2M, SERMPA, SEPG #### [facility] [place] [address] [id number] B2 MICROGLOBULIN Collected: 02/16/2018 Status: F Source: [place] 3:14 PM [facility] REPOSITORY TYPE CODE TESTS RESULT OUT OF REFERENCE UNITS RANGE LAB B2M 0.8-2.2 mg/L B2 Microglobulin High 2.7 Performed By: #### CMP, B2M, SERMPA, SEPG #### [facility] [place] [address] [place], [place] [id number] MONCLNL PROTEIN, SER Collected: 02/16/2018 Status: F Source: [place] 3:14 PM [facility] REPOSITORY TYPE CODE TESTS RESULT OUT OF REFERENCE UNITS RANGE LAB IGG 717-1411 mg/dL IgG 1120 LAB IGA 78-391 mg/dL IgA 278 LAB IGM 53-334 mg/dL Low IgM 13 LAB FKAPS 3.30-19.40 mg/L High [place], 43.4 Free, Serum Result Comment: Rarely, increased serum free light chains values may not be detected due to antigen excess phenomenon. Results should always be correlated with other laboratory results and clinical findings. LAB FLAMS 5.7-26.3 mg/L Lambda, Free, 26.2 Serum Result Comment: Rarely, increased serum free light chains values may not be detected due to antigen excess phenomenon. Results should always be correlated with other laboratory results and clinical findings. LAB KLRAT 0.26-1.65 1.66 High K/L Ratio, Serum LAB MPAR No M protein is identified. No M MPA Result protein is identified. LAB MPASTF Staff Review Reviewed by Yaniv Rowell M.D. ([id number]) Performed By: #### CMP, B2M, SERMPA, SEPG #### [facility] [address] [place], [place] [address] PROTEIN ELECTROPHOR. Collected: 02/16/2018 Status: F Source: [place] 3:14 PM [facility] REPOSITORY TYPE CODE TESTS RESULT OUT OF REFERENCE UNITS RANGE LAB TPSPE 6.0-8.4 g/dL Total Protein, SPE 7.0 LAB ALBE 3.37-4.23 gm/dL Albumin 3.64 LAB A1GL 0.18-0.31 gm/dL Alpha 1 Globulin 0.31 LAB A2GL 0.52-0.97 gm/dL Alpha 2 Globulin 0.96 LAB BEGL 0.84-1.36 gm/dL Beta Globulin 1.06 LAB GAGL 0.70-1.44 gm/dL Gamma Globulin 1.04 LAB SPEINT Interpretation SEE COMMENT Result Comment: No definitive M protein is identified on protein electrophoresis. LAB LOC M Protein N/A Location LAB GPERDL 0.00 gm/dL M Cesar 0.00 Concentratn LAB SPESTF SPE Staff Review Reviewed by Yaniv Rowell M.D. ([id number]) Performed By: #### LINDA, B2M, SERMPA, SEPG #### [facility] [place] [address] [place], [place] [address] CNOVSP Observed: 02/16/2018 Status: COMPLETED Source: [place] 3:10 PM [facility] REPOSITORY Visit (SP) Office (HEMA[place]) GLENDY FLORES JR. ([id number]) 1940 M Date Time Provider Department 02/16/18 3:10 PM ROBEL MADDEN During your visit today, we recorded the following information about you: Temperature Pulse Blood pressure Weight 99.1 degrees 62/minute 155/63 81.4 kg Robel Madden DO 02/16/2018 3:38 PM Signed Diagnosis: 1) Multiple myeloma. Baseline assessment on initial diagnosis: IMWG criteria, [place] Journal of Haematology 121: 749?57, 2003, update in: Júnior et al. Leukemia 20: 1467-73, 2006 and at IMW meeting Jaye 2010 ? Symptomatic multiple myeloma: IgG kappa. ? Related Organ or Tissue Involvement (CRAB) or other Myeloma Defining Event (MDE): Anemia requiring transfusion. Otherwise, baseline bone survey 09/04/2016 revealed no lytic lesions. Baseline serum calcium, ionized value 1.2 mmol per liter. Baseline serum creatinine 1.2 mg/dL. ? Antecedent plasma cell dyscrasia: None known. ? Myeloma FISH panel: 13q14 (RB1): ? ? 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 ?Normal pattern 14q32 (IGH): ? ? 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 The translocation partner cannot be identified. These corresponds to standard risk disease. ? Cytogenetics: Pending. ? LDH: 210 (135-225 U/L) ? ISS stage: B2M not drawn. ? [place] Durie Stage: III (anemia with Hgb < 8.5 g/dL) ? Monoclonal proteins at diagnosis: Serum M-spike: 7.5 gm/dL, Involved serum free light chains: lkmag=1422.0 mg/L, Uninvolved serum free light chains: lambda= 5.8 mg/L. ? Bone marrow plasma cell infiltration: 22%. HPI: The patient is a 77 yo male with PMH significant for CAD, PVD, HTN and DM2. The patient had a CBC done on 01/23/2016. At that time the white count was 6300. Hemoglobin was 10.6 g/dL and the platelet count 179,000. Chemistries at that time included a basic metabolic profile that showed a creatinine of 1.0 mg/dL. Patient had repeat CBC on 07/12/2016. The hemoglobin was noted to be 8.7 g/dL. The total white count was 6600. The differential was unremarkable. Platelet count 134,000. Chemistries were remarkable for a total serum protein at 14 g/dL. Albumin was 3.4 g/dL. Globulin fraction was not able to be determined. The remainder the chemistries were unremarkable and specifically the serum creatinine was 0.9. CBC was repeated on 07/22/2016 the hemoglobin was 8.5 g/dL. Again the total white count differential were normal. Platelet count 135,000 serum protein 14.1 g/dL. Globulin fraction was noted to be outside the reportable range. He was admitted to [facility] the first week of August. He had significant anemia and received a 2 unit red blood cell transfusion. He underwent EGD and colonoscopy. 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 Most significantly he had been having epistaxis in the few weeks prior to presentaton. This required packing. He also underwent a cauterization sometime in the last week or so but had significant right-sided epistaxis before coming in today. He is not on anticoagulation. He denies other bleeding problems. Previous therapy: 1) VCd x8 cycles. 2) Vd x2 cycles. 3) RVd x1 cycle--started lenalidomide 07/25/2017. 4) Rd. Current therapy: Revlimid on hold. Presents for ongoing hematologic management. Interim history: No further bleeding from hemorrhoids. No other unusual bleeding or unexplained bruising. Good appetite. No recent episode of fever. No history night sweats. Stable numbness toes and feet. PMH, medications and allergies as below personally reviewed by me today. Any changes documented in appropriate section. ROS: Constitutional: See above. Neuro: No HODGES, dizziness or vertigo. Uses cane for occasional imbalance. HEENT: No recent change in voice, vision or hearing. Resp: No cough or sputum production. No wheeze. CVS: Denies PND and orthopnea. He has chronic mild swelling/pitting edema of both legs worse on the left secondary to previous vein harvest for bypass surgery--stable. GI: Denies symptoms of stomatitis. Denies dysphagia and odynophagia. Denies abdominal pain. : Denies dysuria or gross hematuria. No symptoms of bladder outlet obstruction. Endo: Denies hot flashes. Denies polyuria and polydipsia. Denies heat and cold intolerance. Musculoskeletal: Denies bone, joint and muscular pain. Stable lower back pain. Derm: Denies rash. Denies jaundice and diffuse pruritis. Heme: See above. Psych: Normal mood. PHYSICAL EXAM: Vitals: There were no vitals taken for this visit. Well-appearing and in no acute distress. EYES: Sclerae are anicteric bilaterally. NECK: Supple. LYMPHATIC: There is no palpable cervical, supraclavicular adenopathy. RESPIRATORY: Inspiratory breath sounds are of normal intensity in all thakur. No rales, wheezes or rhonchi. CARDIOVASCULAR: Rhythm is regular. Normal intensity S1/S2. ABDOMEN: The abdomen is nondistended. No organomegaly. No tenderness. Extremities: Mild swelling with trace edema of distal LEs. SKIN: No rash. No petechiae. NEUROLOGIC: ore trimmer II-XII are grossly intact. No focal motor weakness--symmetric diffuse weakness of the legs. MUSCULOSKELETAL: No muscle wasting. ASSESSMENT/PLAN: (C90.00) Multiple myeloma not having achieved remission ([facility]) (primary encounter diagnosis) (D75.9) Hyperviscosity Assessment: -IgG kappa multiple myeloma. -Symptomatic anemia presentation requiring transfusion. -He also had significantly elevated serum protein with some symptoms of hyperviscosity including epistaxis and previous GI bleeding. -M-protein undetectable since November. -Discussed plan to continue Revlimid 15 mg dose without dexamethasone as maintenance therapy. Plan: -Revlimid 15 mg for 21 days. -Hold on dexamethasone. Supportive care: Hematology: Hemoglobin as been increasing. Renal: Normal creatinine at baseline--clinically no evidence for renal dysfunction. Infectious diseases: Can stop prophylactic acyclovir--has been just over 6 months since last bortezomib injection. Musculoskeletal: Bisphoshonates: No obvious lytic lesions at baseline evaluation and baseline DEXA showed normal bone density. This is in keeping with the [facility] care-path guidelines to hold on bisphosphonate therapy. Venous thromboembolism risk: He continues on low dose ASA and Plavix. He will continue these medications for now. control counseling: Neurology: Baseline neuropathy improved and now stable. (E11.51) Type 2 diabetes mellitus with diabetic peripheral angiopathy without gangrene, unspecified rat exterminator insulin use status (HCC) (I73.9) PAD (peripheral artery disease) ([facility]) -He will continue follow-up with his PCP for these issues. DO Rebecca Felipe LPN 02/16/2018 3:26 PM Signed Est patient. Discuss recent labs. Rebecca Kemp LPN Referring Provider: ROBEL MADDEN [[id number]] Allergies As of Date: 02/16/2018 (No Known Allergies) Date Reviewed: 02/16/2018 Reviewed by: Rebecca Kemp LPN - Fully Assessed Reason for Visit: Established Patient [[id number]] Primary Visit Diagnosis:Multiple myeloma not having achieved remission ([facility]) [C90.00] Follow-up and Disposition History Recorded Prescriptions as of 02/16/2018 Sig: SODIUM CHLORIDE 0.9% FLUSH Access implanted vascular acc* HEPARIN, PORCINE (PF) 100 UNI* Access implanted vascular acc* LENALIDOMIDE 15 MG CAPSULE Take 1 capsule by mouth once * OXYBUTYNIN CHLORIDE ER 10 MG * Take 10 mg by mouth once juan miguel* CLOPIDOGREL 75 MG TABLET Take 75 mg by mouth once juan miguel* PANTOPRAZOLE 40 MG TABLET,DEL* Take 40 mg by mouth once juan miguel* DULCOLAX (BISACODYL) ORAL Take 1 tablet by mouth as nee* ONDANSETRON HCL 8 MG TABLET TAKE ONE TABLET BY MOUTH EVER* SENNOSIDES 8.6 MG-DOCUSATE SO* Take 1 tablet by mouth once d* VITAMINS AND MINERALS ORAL Take by mouth once daily. FUROSEMIDE 20 MG TABLET Take 20 mg by mouth once juan miguel* HYDROCODONE 10 MG-ACETAMINOPH* Take 1 tablet by mouth every * TAMSULOSIN 0.4 MG CAPSULE Take 0.4 mg by mouth once donna* VYTORIN 10 MG-80 MG TABLET daily at bedtime. * AMLODIPINE 10 MG-BENAZEPRIL 2* Take one(1) tablet daily. * PIOGLITAZONE 45 MG TABLET Take one(1) tablet daily. * VALSARTAN 320 MG-HYDROCHLOROT* Take one(1) tablet daily. * ASPIRIN 81 MG CHEWABLE TABLET Take one(1) tablet daily. * GABAPENTIN 100 MG CAPSULE Take one(1) tablet 2-3 times * TRIAMCINOLONE ACETONIDE 0.025* Apply 1 application to affect* Patient not taking: Reported on 01/26/2018 NYSTATIN 100,000 UNIT/ML ORAL* Take 5 mL by mouth four times* Patient not taking: Reported on 02/16/2018 OXYBUTYNIN CHLORIDE ER 5 MG T* Take 5 mg by mouth once daily* Problem List As Of Date 02/16/2018 Noted Resolved Hypertension [I10] INVALID FOR* Hypercholesteremia [E78.00] INVALID FOR* PAD (peripheral artery disease) [I73.9] INVALID FOR* Nevus [D22.9] INVALID FOR*09/06/2016 Multiple myeloma not having achieved remission *INVALID FOR* 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 FOR* 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 chemotherapy [D64.*INVALID FOR* Iron deficiency anemia due to chronic blood los*INVALID FOR* Iron malabsorption [K90.9] INVALID FOR* Visit Notes: >> Rebecca Kemp LPN Mon Feb 16, 2018 3:20 PM Status: Signed Est patient. Discuss recent labs. Rebecca Kemp LPN Encounter Status:Closed by ROBEL MADDEN DO on 02/16/18 [facility] ABS GR + CBC Collected: 01/26/2018 Status: F Source: [place] 2:39 PM [facility] REPOSITORY TYPE CODE TESTS RESULT OUT OF REFERENCE UNITS RANGE LAB WWBC 3.70-11.00 k/uL [facility] WBC 5.75 LAB WRBC 4.20-6.00 m/uL Low [facility] RBC 3.04 LAB WHGB 13.0-17.0 g/dL Low [place] Hemoglobin 10.3 LAB WHCT 39.0-51.0 % Low [place] Hematocrit 30.4 LAB WMCV 80.0-100.0 fL [place] MCV 100.0 LAB WMCH 26.0-34.0 pg [place] MCH 33.9 LAB WMCHC 30.5-36.0 g/dL [place] MCHC 33.9 LAB WRDW 11.5-15.0 % [facility] High RDW 16.1 LAB WPLT 150-400 k/uL [place] Platelet Cnt 186 LAB WMPV 9.0-12.7 fL [facility] MPV 9.9 Result Comment: Test performed at: [facility] [address] [place] [address]. LAB ABGRAN 1.45-7.50 k/uL Absol Gran 3.49 Count [facility] ISTAT BMP Collected: 01/26/2018 Status: F Source: [place] 2:39 PM [facility] REPOSITORY TYPE CODE TESTS RESULT OUT OF REFERENCE UNITS RANGE LAB NAWB 135-146 mmol/L Sodium, Whole 135 Bld LAB K1WB 3.5-5.0 mmol/L Potassium,Who 3.7 le Bld LAB CLWB 98-110 mmol/L Chloride, 98 Whole Bld LAB ICAWB 1.08-1.30 mmol/L Ionized 1.20 Calcium, WB Result Comment: Please note: This value represents ionized calcium not total calcium. LAB CO2WB 23-32 mmol/L TCO2, Whole 24 Blood LAB GLUWB 65-100 mg/dL High Glucose, 254 Whole Bld LAB BUNWB 10-25 mg/dL BUN, Whole 13 Blood LAB BCRET 0.70-1.40 mg/dL Creatinine,Wh 1.00 ole Bld LAB AGAPWB 0-15 mmol/L Anion Gap, 13 Whole Bld LAB GFRAA eGFR- >60 Amer. LAB GFRNAA . eGFR-All >60 Other Races Result Comment: eGFR (Estimated GFR) Units of measure: mL/min/1.73 meters squared eGFR is derived from the reexpressed MDRD Study equation using the following parameters: serum creatinine, age, gender and race. The creatinine assay has been calibrated to be traceable to IDMS. An eGFR <60 mL/min/1.73m2 for >3 months is consistent with chronic kidney disease. Refer to KDOQI guidelines for clinical interpretation. In patients with unstable renal function, e.g. those with acute kidney injury, the eGFR may not accurately reflect actual GFR. KAPPA/MILLER,FREE,SER Collected: Status: F Source: [place] 01/26/2018 2:39 PM [facility] REPOSITORY TYPE CODE TESTS RESULT OUT OF REFERENCE UNITS RANGE LAB FKAPS 3.30-19.40 mg/L [place], 13.7 Free, Serum Result Comment: Rarely, increased serum free light chains values may not be detected due to antigen excess phenomenon. Results should always be correlated with other laboratory results and clinical findings. LAB FLAMS 5.7-26.3 mg/L Lambda, Free, 11.2 Serum Result Comment: Rarely, increased serum free light chains values may not be detected due to antigen excess phenomenon. Results should always be correlated with other laboratory results and clinical findings. LAB KLRAT 0.26-1.65 K/L Ratio, 1.22 Serum Performed By: #### KLFRS, B2M, HFP, SEPG, MPASRM #### [facility] [address], [place] [address] B2 MICROGLOBULIN Collected: 01/26/2018 Status: F Source: [place] 2:39 [facility] REPOSITORY TYPE CODE TESTS RESULT OUT OF REFERENCE UNITS RANGE LAB B2M 0.8-2.2 mg/L B2 Microglobulin High 2.6 Performed By: #### SUMITRS, B2M, HFP, SEPG, MPASRM #### [facility] [address], [place] [address] HEPATIC FUNCTN PANEL Collected: 01/26/2018 Status: F Source: [place] 2:39 [facility] REPOSITORY TYPE CODE TESTS RESULT OUT OF REFERENCE UNITS RANGE LAB ALB 3.9-4.9 g/dL Albumin 4.2 LAB TBIL 0.2-1.3 mg/dL Low Bilirubin, Total <0.2 LAB CBIL <0.2 mg/dL Bilirubin,Conjuga <0.2 josé LAB ALKP 36-108 U/L Alkaline Phosphatase 98 LAB AST 14-40 U/L AST 17 LAB ALT 10-54 U/L ALT 16 LAB TP 6.3-8.0 g/dL Protein, Total 6.7 Performed By: #### KLFRS, B2M, HFP, SEPG, MPASRM #### [facility] [address], [place] [address] PROTEIN ELECTROPHOR. Collected: 01/26/2018 Status: F Source: [place] 2:39 [facility] REPOSITORY TYPE CODE TESTS RESULT OUT OF REFERENCE UNITS RANGE LAB TPSPE 6.0-8.4 g/dL Total Protein, SPE 6.6 LAB ALBE 3.37-4.23 gm/dL Albumin 3.50 LAB A1GL 0.18-0.31 gm/dL Alpha 1 Globulin High 0.33 LAB A2GL 0.52-0.97 gm/dL Alpha 2 Globulin 0.95 LAB BEGL 0.84-1.36 gm/dL Beta Globulin 0.99 LAB GAGL 0.70-1.44 gm/dL Gamma Globulin 0.83 LAB SPEINT Interpretation SEE COMMENT Result Comment: No definitive M protein is identified on protein electrophoresis. LAB LOC M Protein N/A Location LAB GPERDL 0.00 gm/dL M Cesar 0.00 Concentratn LAB SPESTF SPE Staff Review Reviewed by Anthony Marrero MD. ([id number]) Performed By: #### KLFRS, B2M, HFP, SEPG, MPASRM #### [facility] [address] [place] [id number] MONOCLONL PROTEIN,BL Collected: 01/26/2018 Status: F Source: [place] 2:39 PM [facility] REPOSITORY TYPE CODE TESTS RESULT OUT OF REFERENCE UNITS RANGE LAB MPAIGG 717-1411 mg/dL MPA Serum 823 IgG LAB MPAIGA 78-391 mg/dL MPA Serum 177 IgA LAB MPAIGM 53-334 mg/dL Low MPA Serum 11 IgM LAB MPAK 534-1267 mg/dL Serum (NOTE) [place] Result Comment: [place] result =212 mg/dL. Disregard [facility] reference range. Goodzer [place] Reference Range: 176-443 mg/dL Test performed by: [place] This assay provides a measurement of the total kappa and the total lambda light chains, i.e., the amount of free (unattached) light chain in circulation and the amount of light chain linked to heavy chain in intact immunoglobulin molecules. Assays for serum free light chain only, kappa and lambda with ratio, may be more useful in evaluating and managing light chain gammopathies including those associated with myeloma, lymphoproliferative disorders, and amyloidosis. Results from the [facility] assay cannot be compared directly with previously generated results. LAB MPAL 253-653 mg/dL Serum Lambda (NOTE) Result Comment: Lambda result = 114 mg/dL. Disregard [facility] reference range. [facility] Lambda Reference Range: 91-240 mg/dL Test performed by: [place] This assay provides a measurement of the total kappa and the total lambda light chains, i.e., the amount of free (unattached) light chain in circulation and the amount of light chain linked to heavy chain in intact immunoglobulin molecules. Assays for serum free light chain only, kappa and lambda with ratio, may be more useful in evaluating and managing light chain gammopathies inlcuding those associated with myeloma, lymphoproliferative disorders, and amyloidosis. Results from the [facility] assay cannot be compared directly with previously generated results. LAB MPAKL 1-3 MPA Juan Ramon/Bentley Ratio (NOTE) Result Comment: [place]/Lambda ratio = 1.86 Disregard [facility] reference range. [facility] [place]/Lambda Ratio Reference Range: 1.29-2.55 Test performed by: [employer], [place], [place] This assay provides a measurement of the total kappa and the total lambda light chains, i.e., the amount of free (unattached) light chain in circulation and the amount of light chain linked to heavy chain in intact immunoglobulin molecules. Assays for the serum free light chain only, kappa and lambda with ratio, may be more useful in evaluating and managing light chain gammopathies including those associated with myeloma, lymphoproliferative disorders, and amyloidosis. Results from the [facility] assay cannot be compared directly with previously generated results. LAB MPAR No M protein is identified. No M protein MPA Result is identified. LAB MPASTF Reviewed by Staff Review Anthony Marrero MD. ([id number]) Performed By: #### KLFRS, B2M, HFP, SEPG, MPASRM #### [facility] [address], [place] [address] PROGRESS Observed: 01/26/2018 Status: COMPLETED Source: [place] 2:33 PM [facility] REPOSITORY O ID: [id number] Author: Robel Madden Service: (none) Author Type: Physician Type: Progress Notes Filed: 01/26/2018 2:48 PM Note Text: Diagnosis: 1) Multiple myeloma. Baseline assessment on initial diagnosis: IMWG criteria, [place] Journal of Haematology 121: 749?57, 2003, update in: Júnior et al. Leukemia 20: 1467-73, 2006 and at IMW meeting Jaye 2010 ? Symptomatic multiple myeloma: IgG kappa. ? Related Organ or Tissue Involvement (CRAB) or other Myeloma Defining Event (MDE): Anemia requiring transfusion. Otherwise, baseline bone survey 09/04/2016 revealed no lytic lesions. Baseline serum calcium, ionized value 1.2 mmol per liter. Baseline serum creatinine 1.2 mg/dL. ? Antecedent plasma cell dyscrasia: None known. ? Myeloma FISH panel: 13q14 (RB1): ? ? 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 ?Normal pattern 14q32 (IGH): ? ? 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 The translocation partner cannot be identified. These corresponds to standard risk disease. ? Cytogenetics: Pending. ? LDH: 210 (135-225 U/L) ? ISS stage: B2M not drawn. ? [place] Durie Stage: III (anemia with Hgb < 8.5 g/dL) ? Monoclonal proteins at diagnosis: Serum M-spike: 7.5 gm/dL, Involved serum free light chains: ijmvj=3150.0 mg/L, Uninvolved serum free light chains: lambda= 5.8 mg/L. ? Bone marrow plasma cell infiltration: 22%. HPI: The patient is a 77 yo male with PMH significant for CAD, PVD, HTN and DM2. The patient had a CBC done on 01/23/2016. At that time the white count was 6300. Hemoglobin was 10.6 g/dL and the platelet count 179,000. Chemistries at that time included a basic metabolic profile that showed a creatinine of 1.0 mg/dL. Patient had repeat CBC on 07/12/2016. The hemoglobin was noted to be 8.7 g/dL. The total white count was 6600. The differential was unremarkable. Platelet count 134,000. Chemistries were remarkable for a total serum protein at 14 g/dL. Albumin was 3.4 g/dL. Globulin fraction was not able to be determined. The remainder the chemistries were unremarkable and specifically the serum creatinine was 0.9. CBC was repeated on 07/22/2016 the hemoglobin was 8.5 g/dL. Again the total white count differential were normal. Platelet count 135,000 serum protein 14.1 g/dL. Globulin fraction was noted to be outside the reportable range. He was admitted to [facility] the first week of August. He had significant anemia and received a 2 unit red blood cell transfusion. He underwent EGD and colonoscopy. 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 Most significantly he had been having epistaxis in the few weeks prior to presentaton. This required packing. He also underwent a cauterization sometime in the last week or so but had significant right- sided epistaxis before coming in today. He is not on anticoagulation. He denies other bleeding problems. Previous therapy: 1) VCd x8 cycles. 2) Vd x2 cycles. 3) RVd x1 cycle--started lenalidomide 07/25/2017. 4) Rd. Current therapy: Revlimid on hold. Presents for ongoing hematologic management. Interim history: Denies having or having had rectal bleeding. Says feels better in terms of neuropathy legs. Has occasional numbness when lifting foot such as getting in the care. No shortness of breath at rest or with moderate exertion. Good appetite. No other unusual bleeding or unexplained bruising. No fever or nights sweats. PMH, medications and allergies as below personally reviewed by me today. Any changes documented in appropriate section. ROS: Constitutional: See above. Neuro: See above. HEENT: No recent change in voice, vision or hearing. Resp: No cough or sputum production. No wheeze. CVS: Denies PND and orthopnea. He has chronic mild swelling/pitting edema of both legs worse on the left secondary to previous vein harvest for bypass surgery--stable. GI: Denies symptoms of stomatitis. Denies dysphagia and odynophagia. Denies abdominal pain. He has chronic constipation and occasionally takes stool softeners to help his bowels move. : Denies dysuria or gross hematuria. No symptoms of bladder outlet obstruction. Endo: Denies hot flashes. Denies polyuria and polydipsia. Denies heat and cold intolerance. Musculoskeletal: Denies bone, joint and muscular pain. Stable lower back pain. Derm: Denies rash. Denies jaundice and diffuse pruritis. Heme: See above. Psych: Normal mood. PHYSICAL EXAM: Vitals: Blood pressure 128/72, pulse 86, temperature 37 ?C (98.6 ?F), temperature source Oral. Well-appearing and in no acute distress. EYES: Sclerae are anicteric bilaterally. NECK: Supple. LYMPHATIC: There is no palpable cervical, supraclavicular adenopathy. RESPIRATORY: Inspiratory breath sounds are of normal intensity in all thakur. No rales, wheezes or rhonchi. CARDIOVASCULAR: Rhythm is regular. Normal intensity S1/S2. ABDOMEN: The abdomen is nondistended. No organomegaly. No tenderness. Extremities: Mild swelling with trace edema of distal LEs. SKIN: No rash. No petechiae. NEUROLOGIC: ore trimmer II-XII are grossly intact. No focal motor weakness--symmetric diffuse weakness of the legs. MUSCULOSKELETAL: No muscle wasting. ASSESSMENT/PLAN: (C90.00) Multiple myeloma not having achieved remission ([facility]) (primary encounter diagnosis) (D75.9) Hyperviscosity Assessment: -IgG kappa multiple myeloma. -Symptomatic anemia presentation requiring transfusion. -He also had significantly elevated serum protein with some symptoms of hyperviscosity including epistaxis and previous GI bleeding. -Revlimid held for several weeks due to rectal bleeding which he now thinks he didn't have. Iron better with infusion. Canceled surgery consultation. Plan: -Restart Revlimid 15 mg for 21 days. -Hold on dexamethasone. Supportive care: Hematology: Hemoglobin increasing. Renal: Normal creatinine at baseline--clinically no evidence for renal dysfunction. Infectious diseases: Continue prophylactic acyclovir. Musculoskeletal: Bisphoshonates: No obvious lytic lesions at baseline evaluation and baseline DEXA showed normal bone density. This is in keeping with the [facility] care-path guidelines to hold on bisphosphonate therapy. Venous thromboembolism risk: He continues on low dose ASA and Plavix. He will continue these medications for now, but may have to hold if has significant source of GI bleeding. control counseling: Neurology: Baseline neuropathy improved. (E11.51) Type 2 diabetes mellitus with diabetic peripheral angiopathy without gangrene, unspecified rat exterminator insulin use status ([facility]) (I73.9) PAD (peripheral artery disease) (HCC) -He will continue follow-up with his PCP for these issues. Robel Madden DO CNOVSP Observed: 01/26/2018 Status: COMPLETED Source: [place] 2:30 PM [facility] REPOSITORY Visit (SP) Office (ZOIE) GLENDY FLORES JR. ([id number]) 1940 M Date Time Provider Department 01/26/18 2:30 PM ROBEL MADDEN During your visit today, we recorded the following information about you: Temperature Pulse Blood pressure 98.6 degrees 86/minute 128/72 Robel Madden DO 01/26/2018 2:48 PM Signed Diagnosis: 1) Multiple myeloma. Baseline assessment on initial diagnosis: IMWG criteria, [place] Journal of Haematology 121: 749?57, 2003, update in: Rosemaryie et al. Leukemia 20: 1467-73, 2006 and at IMW meeting Jaye 2010 ? Symptomatic multiple myeloma: IgG kappa. ? Related Organ or Tissue Involvement (CRAB) or other Myeloma Defining Event (MDE): Anemia requiring transfusion. Otherwise, baseline bone survey 09/04/2016 revealed no lytic lesions. Baseline serum calcium, ionized value 1.2 mmol per liter. Baseline serum creatinine 1.2 mg/dL. ? Antecedent plasma cell dyscrasia: None known. ? Myeloma FISH panel: 13q14 (RB1): ? ? 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 ?Normal pattern 14q32 (IGH): ? ? 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 The translocation partner cannot be identified. These corresponds to standard risk disease. ? Cytogenetics: Pending. ? LDH: 210 (135-225 U/L) ? ISS stage: B2M not drawn. ? [place] Durie Stage: III (anemia with Hgb < 8.5 g/dL) ? Monoclonal proteins at diagnosis: Serum M-spike: 7.5 gm/dL, Involved serum free light chains: cjeox=0714.0 mg/L, Uninvolved serum free light chains: lambda= 5.8 mg/L. ? Bone marrow plasma cell infiltration: 22%. HPI: The patient is a 77 yo male with PMH significant for CAD, PVD, HTN and DM2. The patient had a CBC done on 01/23/2016. At that time the white count was 6300. Hemoglobin was 10.6 g/dL and the platelet count 179,000. Chemistries at that time included a basic metabolic profile that showed a creatinine of 1.0 mg/dL. Patient had repeat CBC on 07/12/2016. The hemoglobin was noted to be 8.7 g/dL. The total white count was 6600. The differential was unremarkable. Platelet count 134,000. Chemistries were remarkable for a total serum protein at 14 g/dL. Albumin was 3.4 g/dL. Globulin fraction was not able to be determined. The remainder the chemistries were unremarkable and specifically the serum creatinine was 0.9. CBC was repeated on 07/22/2016 the hemoglobin was 8.5 g/dL. Again the total white count differential were normal. Platelet count 135,000 serum protein 14.1 g/dL. Globulin fraction was noted to be outside the reportable range. He was admitted to [facility] the first week of August. He had significant anemia and received a 2 unit red blood cell transfusion. He underwent EGD and colonoscopy. 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 Most significantly he had been having epistaxis in the few weeks prior to presentaton. This required packing. He also underwent a cauterization sometime in the last week or so but had significant right-sided epistaxis before coming in today. He is not on anticoagulation. He denies other bleeding problems. Previous therapy: 1) VCd x8 cycles. 2) Vd x2 cycles. 3) RVd x1 cycle--started lenalidomide 07/25/2017. 4) Rd. Current therapy: Revlimid on hold. Presents for ongoing hematologic management. Interim history: Denies having or having had rectal bleeding. Says feels better in terms of neuropathy legs. Has occasional numbness when lifting foot such as getting in the care. No shortness of breath at rest or with moderate exertion. Good appetite. No other unusual bleeding or unexplained bruising. No fever or nights sweats. PMH, medications and allergies as below personally reviewed by me today. Any changes documented in appropriate section. ROS: Constitutional: See above. Neuro: See above. HEENT: No recent change in voice, vision or hearing. Resp: No cough or sputum production. No wheeze. CVS: Denies PND and orthopnea. He has chronic mild swelling/pitting edema of both legs worse on the left secondary to previous vein harvest for bypass surgery--stable. GI: Denies symptoms of stomatitis. Denies dysphagia and odynophagia. Denies abdominal pain. He has chronic constipation and occasionally takes stool softeners to help his bowels move. : Denies dysuria or gross hematuria. No symptoms of bladder outlet obstruction. Endo: Denies hot flashes. Denies polyuria and polydipsia. Denies heat and cold intolerance. Musculoskeletal: Denies bone, joint and muscular pain. Stable lower back pain. Derm: Denies rash. Denies jaundice and diffuse pruritis. Heme: See above. Psych: Normal mood. PHYSICAL EXAM: Vitals: Blood pressure 128/72, pulse 86, temperature 37 ?C (98.6 ?F), temperature source Oral. Well-appearing and in no acute distress. EYES: Sclerae are anicteric bilaterally. NECK: Supple. LYMPHATIC: There is no palpable cervical, supraclavicular adenopathy. RESPIRATORY: Inspiratory breath sounds are of normal intensity in all thakur. No rales, wheezes or rhonchi. CARDIOVASCULAR: Rhythm is regular. Normal intensity S1/S2. ABDOMEN: The abdomen is nondistended. No organomegaly. No tenderness. Extremities: Mild swelling with trace edema of distal LEs. SKIN: No rash. No petechiae. NEUROLOGIC: ore trimmer II-XII are grossly intact. No focal motor weakness--symmetric diffuse weakness of the legs. MUSCULOSKELETAL: No muscle wasting. ASSESSMENT/PLAN: (C90.00) Multiple myeloma not having achieved remission (HCC) (primary encounter diagnosis) (D75.9) Hyperviscosity Assessment: -IgG kappa multiple myeloma. -Symptomatic anemia presentation requiring transfusion. -He also had significantly elevated serum protein with some symptoms of hyperviscosity including epistaxis and previous GI bleeding. -Revlimid held for several weeks due to rectal bleeding which he now thinks he didn't have. Iron better with infusion. Canceled surgery consultation. Plan: -Restart Revlimid 15 mg for 21 days. -Hold on dexamethasone. Supportive care: Hematology: Hemoglobin increasing. Renal: Normal creatinine at baseline--clinically no evidence for renal dysfunction. Infectious diseases: Continue prophylactic acyclovir. Musculoskeletal: Bisphoshonates: No obvious lytic lesions at baseline evaluation and baseline DEXA showed normal bone density. This is in keeping with the [facility] care-path guidelines to hold on bisphosphonate therapy. Venous thromboembolism risk: He continues on low dose ASA and Plavix. He will continue these medications for now, but may have to hold if has significant source of GI bleeding. control counseling: Neurology: Baseline neuropathy improved. (E11.51) Type 2 diabetes mellitus with diabetic peripheral angiopathy without gangrene, unspecified rat exterminator insulin use status ([facility]) (I73.9) PAD (peripheral artery disease) ([facility]) -He will continue follow-up with his PCP for these issues. Robel Madden DO Referring Provider: ROBEL MADDEN [[id number]] Allergies As of Date: 01/26/2018 (No Known Allergies) Date Reviewed: 01/26/2018 Reviewed by: Lisandra See - Fully Assessed Reason for Visit: Established Patient [175] Primary Visit Diagnosis:Multiple myeloma not having achieved remission (HCC) [C90.00] Follow-up and Disposition History Recorded Prescriptions as of 01/26/2018 Sig: SODIUM CHLORIDE 0.9% FLUSH Access implanted vascular acc* HEPARIN, PORCINE (PF) 100 UNI* Access implanted vascular acc* LENALIDOMIDE 15 MG CAPSULE Take 1 capsule by mouth once * OXYBUTYNIN CHLORIDE ER 10 MG * Take 10 mg by mouth once juan miguel* NYSTATIN 100,000 UNIT/ML ORAL* Take 5 mL by mouth four times* ACYCLOVIR 400 MG TABLET TAKE ONE TABLET BY MOUTH TWIC* CLOPIDOGREL 75 MG TABLET Take 75 mg by mouth once juan miguel* OXYBUTYNIN CHLORIDE ER 5 MG T* Take 5 mg by mouth once daily* PANTOPRAZOLE 40 MG TABLET,DEL* Take 40 mg by mouth once juan miguel* DULCOLAX (BISACODYL) ORAL Take 1 tablet by mouth as nee* ONDANSETRON HCL 8 MG TABLET TAKE ONE TABLET BY MOUTH EVER* VITAMINS AND MINERALS ORAL Take by mouth once daily. FUROSEMIDE 20 MG TABLET Take 20 mg by mouth once juan miguel* HYDROCODONE 10 MG-ACETAMINOPH* Take 1 tablet by mouth every * TAMSULOSIN 0.4 MG CAPSULE Take 0.4 mg by mouth once donna* VYTORIN 10 MG-80 MG TABLET daily at bedtime. * AMLODIPINE 10 MG-BENAZEPRIL 2* Take one(1) tablet daily. * PIOGLITAZONE 45 MG TABLET Take one(1) tablet daily. * VALSARTAN 320 MG-HYDROCHLOROT* Take one(1) tablet daily. * ASPIRIN 81 MG CHEWABLE TABLET Take one(1) tablet daily. * GABAPENTIN 100 MG CAPSULE Take one(1) tablet 2-3 times * TRIAMCINOLONE ACETONIDE 0.025* Apply 1 application to affect* Patient not taking: Reported on 01/26/2018 SENNOSIDES 8.6 MG-DOCUSATE SO* Take 1 tablet by mouth once d* Problem List As Of Date 01/26/2018 Noted Resolved Hypertension [I10] INVALID FOR* Hypercholesteremia [E78.00] INVALID FOR* PAD (peripheral artery disease) [I73.9] INVALID FOR* Nevus [D22.9] INVALID FOR*09/06/2016 Multiple myeloma not having achieved remission *INVALID FOR* 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 FOR* 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 chemotherapy [D64.*INVALID FOR* Iron deficiency anemia due to chronic blood los*INVALID FOR* Iron malabsorption [K90.9] INVALID FOR* Encounter Status:Closed by ROBEL MADDEN DO on 01/26/18 DAVID ABS GR + CBC Collected: 01/19/2018 Status: F Source: [place] 2:39 PM [facility] REPOSITORY TYPE CODE TESTS RESULT OUT OF REFERENCE UNITS RANGE LAB WWBC 3.70-11.00 k/uL [place] WBC 7.47 LAB WRBC 4.20-6.00 m/uL Low David RBC 2.99 LAB WHGB 13.0-17.0 g/dL Low [place] Hemoglobin 9.9 LAB WHCT 39.0-51.0 % Low David Hematocrit 29.6 LAB WMCV 80.0-100.0 fL [place] MCV 99.0 LAB WMCH 26.0-34.0 pg David MCH 33.1 LAB WMCHC 30.5-36.0 g/dL David MCHC 33.4 LAB WRDW 11.5-15.0 % [place] High RDW 16.6 LAB WPLT 150-400 k/uL [place] Platelet Cnt 196 LAB WMPV 9.0-12.7 fL [place] MPV 9.2 Result Comment: Test performed at: [address] [place] [address]. LAB ABGRAN 1.45-7.50 k/uL Absol Gran 4.91 Count DAVID ABS GR + CBC Collected: 01/12/2018 Status: F Source: [place] 3:00 PM [facility] REPOSITORY TYPE CODE TESTS RESULT OUT OF REFERENCE UNITS RANGE LAB WWBC 3.70-11.00 k/uL David WBC 5.78 LAB WRBC 4.20-6.00 m/uL Low [place] RBC 2.83 LAB WHGB 13.0-17.0 g/dL Low [place] Hemoglobin 9.3 LAB WHCT 39.0-51.0 % Low [place] Hematocrit 28.2 LAB WMCV 80.0-100.0 fL [place] MCV 99.6 LAB WMCH 26.0-34.0 pg David MCH 32.9 LAB WMCHC 30.5-36.0 g/dL [place] MCHC 33.0 LAB WRDW 11.5-15.0 % David High RDW 17.1 LAB WPLT 150-400 k/uL [place] Platelet Cnt 205 LAB WMPV 9.0-12.7 fL [place] MPV 10.0 Result Comment: Test performed at: [address] [place] [address]. LAB ABGRAN 1.45-7.50 k/uL Absol Gran 3.00 Count DAVID ABS GR + CBC Collected: 01/06/2018 Status: F Source: [place] 2:38 PM [facility] REPOSITORY TYPE CODE TESTS RESULT OUT OF REFERENCE UNITS RANGE LAB WWBC 3.70-11.00 k/uL David WBC 6.26 LAB WRBC 4.20-6.00 m/uL Low David RBC 2.78 LAB WHGB 13.0-17.0 g/dL Low [place] Hemoglobin 9.2 LAB WHCT 39.0-51.0 % Low David Hematocrit 27.7 LAB WMCV 80.0-100.0 fL [place] MCV 99.6 LAB WMCH 26.0-34.0 pg [place] MCH 33.1 LAB WMCHC 30.5-36.0 g/dL David MCHC 33.2 LAB WRDW 11.5-15.0 % David High RDW 17.2 LAB WPLT 150-400 k/uL [place] Platelet Cnt 214 LAB WMPV 9.0-12.7 fL [place] MPV 9.6 Result Comment: Test performed at: [address] [place] [address]. LAB ABGRAN 1.45-7.50 k/uL Absol Gran 3.58 Count DAVID ABS GR + CBC Collected: 12/29/2017 Status: F Source: [place] 1:33 PM [facility] REPOSITORY TYPE CODE TESTS RESULT OUT OF REFERENCE UNITS RANGE LAB WWBC 3.70-11.00 k/uL [place] WBC 6.10 LAB WRBC 4.20-6.00 m/uL Low [place] RBC 2.68 LAB WHGB 13.0-17.0 g/dL Low [place] Hemoglobin 8.7 LAB WHCT 39.0-51.0 % Low [place] Hematocrit 26.3 LAB WMCV 80.0-100.0 fL [place] MCV 98.1 LAB WMCH 26.0-34.0 pg [place] MCH 32.5 LAB WMCHC 30.5-36.0 g/dL [place] MCHC 33.1 LAB WRDW 11.5-15.0 % David High RDW 17.1 LAB WPLT 150-400 k/uL David Platelet Cnt 251 LAB WMPV 9.0-12.7 fL David MPV 9.2 Result Comment: Test performed at: [facility] David, [address] [place] [address]. LAB ABGRAN 1.45-7.50 k/uL Absol Gran 3.15 Count PROGRESS Observed: 12/22/2017 Status: COMPLETED Source: [place] 4:08 PM [facility] REPOSITORY HNO ID: [id number] Author: Robel Madden Service: (none) Author Type: Physician Type: Progress Notes Filed: 12/22/2017 5:10 PM Note Text: Diagnosis: 1) Multiple myeloma. Baseline assessment on initial diagnosis: IMWG criteria, [place] Journal of Haematology 121: 749?57, 2003, update in: Rosemaryie et al. Leukemia 20: 1467-73, 2006 and at IMW meeting Jaye 2010 ? Symptomatic multiple myeloma: IgG kappa. ? Related Organ or Tissue Involvement (CRAB) or other Myeloma Defining Event (MDE): Anemia requiring transfusion. Otherwise, baseline bone survey 09/04/2016 revealed no lytic lesions. Baseline serum calcium, ionized value 1.2 mmol per liter. Baseline serum creatinine 1.2 mg/dL. ? Antecedent plasma cell dyscrasia: None known. ? Myeloma FISH panel: 13q14 (RB1): ? ? 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 ?Normal pattern 14q32 (IGH): ? ? 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 The translocation partner cannot be identified. These corresponds to standard risk disease. ? Cytogenetics: Pending. ? LDH: 210 (135-225 U/L) ? ISS stage: B2M not drawn. ? [place] Durie Stage: III (anemia with Hgb < 8.5 g/dL) ? Monoclonal proteins at diagnosis: Serum M-spike: 7.5 gm/dL, Involved serum free light chains: jqhkv=0256.0 mg/L, Uninvolved serum free light chains: lambda= 5.8 mg/L. ? Bone marrow plasma cell infiltration: 22%. HPI: The patient is a 77 yo male with PMH significant for CAD, PVD, HTN and DM2. The patient had a CBC done on 01/23/2016. At that time the white count was 6300. Hemoglobin was 10.6 g/dL and the platelet count 179,000. Chemistries at that time included a basic metabolic profile that showed a creatinine of 1.0 mg/dL. Patient had repeat CBC on 07/12/2016. The hemoglobin was noted to be 8.7 g/dL. The total white count was 6600. The differential was unremarkable. Platelet count 134,000. Chemistries were remarkable for a total serum protein at 14 g/dL. Albumin was 3.4 g/dL. Globulin fraction was not able to be determined. The remainder the chemistries were unremarkable and specifically the serum creatinine was 0.9. CBC was repeated on 07/22/2016 the hemoglobin was 8.5 g/dL. Again the total white count differential were normal. Platelet count 135,000 serum protein 14.1 g/dL. Globulin fraction was noted to be outside the reportable range. He was admitted to [facility] the first week of August. He had significant anemia and received a 2 unit red blood cell transfusion. He underwent EGD and colonoscopy. 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 Most significantly he had been having epistaxis in the few weeks prior to presentaton. This required packing. He also underwent a cauterization sometime in the last week or so but had significant right- sided epistaxis before coming in today. He is not on anticoagulation. He denies other bleeding problems. Previous therapy: 1) VCd x8 cycles. 2) Vd x2 cycles. 3) RVd x1 cycle--started lenalidomide 07/25/2017. Current therapy: 1) Rd. Presents for ongoing hematologic management. Interim history: His rectal bleeding had stopped and he canceled his appointment with Dr. Kapoor. Now on the last couple days he is having more rectal bleeding again. He is not short of breath at rest. No chest pain. He's been off Revlimid secondary to GI bleeding which is not because of Revlimid but I didn't want to exacerbate the anemia. He's not had any episode of fever. Appetite is doing okay. He has a headache today. Neuropathy pain is under good control but he didn't take his medication today so he is having a flare. PMH, medications and allergies as below personally reviewed by me today. Any changes documented in appropriate section. ROS: Constitutional: See above. Neuro: See above. HEENT: No recent change in voice, vision or hearing. Resp: No cough or sputum production. No wheeze. No shortness of breath at rest. CVS: Denies PND and orthopnea. He has chronic mild swelling/pitting edema of both legs worse on the left secondary to previous vein harvest for bypass surgery--stable. GI: Denies symptoms of stomatitis. Denies dysphagia and odynophagia. Denies abdominal pain. He has chronic constipation and occasionally takes stool softeners to help his bowels move. He doesn't take them consistently. : Denies dysuria or gross hematuria. No symptoms of bladder outlet obstruction. Endo: Denies hot flashes. Denies polyuria and polydipsia. Denies heat and cold intolerance. Musculoskeletal: Denies bone, joint and muscular pain. Stable lower back pain. Derm: Denies rash. Denies jaundice and diffuse pruritis. Heme: See above. Psych: Normal mood. PHYSICAL EXAM: Vitals: Blood pressure 155/67, pulse 78, temperature 36 ?C (96.8 ?F), weight 79.4 kg (175 lb). Well-appearing and in no acute distress. EYES: Sclerae are anicteric bilaterally. NECK: Supple. LYMPHATIC: There is no palpable cervical, supraclavicular denopathy. RESPIRATORY: Inspiratory breath sounds are of normal intensity in all thakur. No rales, wheezes or rhonchi. CARDIOVASCULAR: Rhythm is regular. Normal intensity S1/S2. ABDOMEN: The abdomen is nondistended. No organomegaly. No tenderness. Extremities: Mild swelling with trace edema of distal LEs. SKIN: No rash. No petechiae. NEUROLOGIC: ore trimmer II-XII are grossly intact. No focal motor weakness--symmetric diffuse weakness of the legs. MUSCULOSKELETAL: No muscle wasting. ASSESSMENT/PLAN: (C90.00) Multiple myeloma not having achieved remission ([facility]) (primary encounter diagnosis) (D75.9) Hyperviscosity Assessment: -IgG kappa multiple myeloma. -Symptomatic anemia presentation requiring transfusion. -He also had significantly elevated serum protein with some symptoms of hyperviscosity including epistaxis and previous GI bleeding. -Improved neuropathy off Velcade. -Serum protein continues to incrementally decline with use of Rd alone. > 50% drop since July. Plan: -Off bortezomib. -Hold Revlimid until rectal bleeding addressed. -Continue dexamethasone 20 mg once a week x3 weeks with day 1, 8 and 15 of lenalidomide. Supportive care: Hematology: Hemoglobin increased since last week but he is now having rectal bleeding again. He'll be referred to general surgery for this. Iron studies will be checked today. We will continue monitoring CBC for possible transfusion on a weekly basis. Renal: Normal creatinine at baseline--clinically no evidence for renal dysfunction. Infectious diseases: Continue prophylactic acyclovir. Musculoskeletal: Has h/o MS pain including chronic low back pain from injury at [employer] and left knee pain--stable. Bisphoshonates: No obvious lytic lesions at baseline evaluation and baseline DEXA showed normal bone density. This is in keeping with the [facility] care-path guidelines to hold on bisphosphonate therapy. Venous thromboembolism risk: He continues on low dose ASA and Plavix. He will continue these medications for now, but may have to hold if has significant source of GI bleeding. control counseling: Neurology: Baseline neuropathy improved. (E11.51) Type 2 diabetes mellitus with diabetic peripheral angiopathy without gangrene, unspecified custodial insulin use status ([facility]) (I73.9) PAD (peripheral artery disease) ([facility]) -He will continue follow-up with his PCP for these issues. Robel Madden, FERRITIN Collected: 12/22/2017 Status: F Source: [place] 4:00 PM [facility] REPOSITORY TYPE CODE TESTS RESULT OUT OF REFERENCE UNITS RANGE LAB FERR 30.3-565.7 ng/mL Ferritin 388.6 Performed By: #### FERR, IRON #### [facility] [address] [address] IRON AND TIBC Collected: 12/22/2017 Status: F Source: [place] 4:00 PM [facility] REPOSITORY TYPE CODE TESTS RESULT OUT OF REFERENCE UNITS RANGE LAB IRN 41-186 ug/dL Low Iron 35 LAB TIBC 232-386 ug/dL TIBC 260 LAB SAT 15-57 % Low Transferrin Saturatn 13 Performed By: #### FERR, IRON #### [facility] [address] [place], [place] [address] DAVID ISTAT BMP Collected: 12/22/2017 Status: F Source: [place] 3:55 PM [facility] REPOSITORY TYPE CODE TESTS RESULT OUT OF REFERENCE UNITS RANGE LAB NAWB 135-146 mmol/L Low Sodium, Whole 132 Bld LAB K1WB 3.5-5.0 mmol/L Potassium,Who 3.9 le Bld LAB CLWB 98-110 mmol/L Low Chloride, 96 Whole Bld LAB ICAWB 1.08-1.30 mmol/L Ionized 1.22 Calcium, WB Result Comment: Please note: This value represents ionized calcium not total calcium. LAB CO2WB 23-32 mmol/L TCO2, Whole 24 Blood LAB GLUWB 65-100 mg/dL High Glucose, 215 Whole Bld LAB BUNWB 10-25 mg/dL BUN, Whole 15 Blood LAB BCRET 0.70-1.40 mg/dL Creatinine,Wh 0.90 ole Bld LAB AGAPWB 0-15 mmol/L Anion Gap, 12 Whole Bld LAB GFRAA eGFR- >60 Amer. LAB GFRNAA . eGFR-All >60 Other Races Result Comment: eGFR (Estimated GFR) Units of measure: mL/min/1.73 meters squared eGFR is derived from the reexpressed MDRD Study equation using the following parameters: serum creatinine, age, gender and race. The creatinine assay has been calibrated to be traceable to IDMS. An eGFR <60 mL/min/1.73m2 for >3 months is consistent with chronic kidney disease. Refer to KDOQI guidelines for clinical interpretation. In patients with unstable renal function, e.g. those with acute kidney injury, the eGFR may not accurately reflect actual GFR. Performed By: #### WCBCDF #### [facility] [address] [place], [place] [address] DAVID CBC AND DIFF Collected: 12/22/2017 Status: F Source: [place] 3:55 PM [facility] REPOSITORY TYPE CODE TESTS RESULT OUT OF REFERENCE UNITS RANGE LAB WWBC 3.70-11.00 k/uL David WBC 6.47 LAB WRBC 4.20-6.00 m/uL Low David RBC 2.64 LAB WHGB 13.0-17.0 g/dL Low David Hemoglobin 8.6 LAB WHCT 39.0-51.0 % Low [place] Hematocrit 25.7 LAB WMCV 80.0-100.0 fL [place] MCV 97.3 LAB WMCH 26.0-34.0 pg David MCH 32.6 LAB WMCHC 30.5-36.0 g/dL David MCHC 33.5 LAB WRDW 11.5-15.0 % [place] High RDW 16.8 LAB WPLT 150-400 k/uL [place] Platelet Cnt 312 LAB WMPV 9.0-12.7 fL David MPV 10.0 Result Comment: Test performed at: [address] [place] [address]. LAB WNEUT % David Neut% 48.5 LAB WLYMP % [place] Lymp% 37.5 LAB WMONOC % [place] Coleman% 12.6 LAB WEOS % David Eos% 0.9 LAB WBASO % [place] Baso% 0.5 LAB WANEUT 1.45-7.50 k/uL David Abs Neut 2.81 LAB WALYMP 1.00-4.00 k/uL [place] Abs Lymp 2.17 LAB WAMONO <0.87 k/uL David Abs Coleman 0.73 LAB WAEOS <0.46 k/uL David Abs Eos 0.05 LAB WABASO <0.11 k/uL David Abs Baso 0.03 Performed By: #### WCBCDF #### [facility] [address] [place], [place] [address] B2 MICROGLOBULIN Collected: 12/22/2017 Status: F Source: [place] 3:55 PM [facility] REPOSITORY TYPE CODE TESTS RESULT OUT OF REFERENCE UNITS RANGE LAB B2M 0.8-2.2 mg/L B2 Microglobulin High 2.3 Performed By: #### B2M, HFP, KLFRS, SEPG, MPASRM #### [facility] [address] [place], [place] [address] HEPATIC FUNCTN PANEL Collected: 12/22/2017 Status: F Source: [place] 3:55 PM [facility] REPOSITORY TYPE CODE TESTS RESULT OUT OF REFERENCE UNITS RANGE LAB ALB 3.9-4.9 g/dL Albumin 3.9 LAB TBIL 0.2-1.3 mg/dL Low Bilirubin, Total <0.2 LAB CBIL <0.2 mg/dL Bilirubin,Conjuga <0.2 josé LAB ALKP 36-108 U/L Alkaline Phosphatase 82 LAB AST 14-40 U/L Low AST 13 LAB ALT 10-54 U/L ALT 11 LAB TP 6.3-8.0 g/dL Protein, Total 6.8 Performed By: #### B2M, HFP, KLFRS, SEPG, MPASRM #### [facility] [address] [id number] KAPPA/MILLER,FREE,SER Collected: Status: F Source: [place] 12/22/2017 3:55 PM [facility] REPOSITORY TYPE CODE TESTS RESULT OUT OF REFERENCE UNITS RANGE LAB FKAPS 3.30-19.40 mg/L [place], 10.8 Free, Serum Result Comment: Rarely, increased serum free light chains values may not be detected due to antigen excess phenomenon. Results should always be correlated with other laboratory results and clinical findings. LAB FLAMS 5.7-26.3 mg/L Lambda, Free, 9.7 Serum Result Comment: Rarely, increased serum free light chains values may not be detected due to antigen excess phenomenon. Results should always be correlated with other laboratory results and clinical findings. LAB KLRAT 0.26-1.65 K/L Ratio, 1.11 Serum Performed By: #### B2M, HFP, KLFRS, SEPG, MPASRM #### [facility] [address] [place], [place] [address] PROTEIN ELECTROPHOR. Collected: 12/22/2017 Status: F Source: [place] 3:55 PM [facility] REPOSITORY TYPE CODE TESTS RESULT OUT OF REFERENCE UNITS RANGE LAB TPSPE 6.0-8.4 g/dL Total Protein, SPE 6.3 LAB ALBE 3.37-4.23 gm/dL Albumin Low 3.16 LAB A1GL 0.18-0.31 gm/dL Alpha 1 Globulin 0.31 LAB A2GL 0.52-0.97 gm/dL Alpha 2 Globulin High 1.04 LAB BEGL 0.84-1.36 gm/dL Beta Globulin 1.00 LAB GAGL 0.70-1.44 gm/dL Gamma Globulin 0.79 LAB SPEINT Interpretation SEE COMMENT Result Comment: No definitive M protein is identified on protein electrophoresis. LAB LOC M Protein N/A Location LAB GPERDL 0.00 gm/dL M Cesar 0.00 Concentratn LAB SPESTF SPE Staff Review Reviewed by Yaniv Rowell M.D. ([id number]) Performed By: #### B2M, HFP, KLFRS, SEPG, MPASRM #### [facility] [address] [place], [place] [address] MONOCLONL PROTEIN,BL Collected: 12/22/2017 Status: F Source: [place] 3:55 PM [facility] REPOSITORY TYPE CODE TESTS RESULT OUT OF REFERENCE UNITS RANGE LAB MPAIGG 717-1411 mg/dL MPA Serum 830 IgG LAB MPAIGA 78-391 mg/dL MPA Serum 140 IgA LAB MPAIGM 53-334 mg/dL Low MPA Serum 11 IgM LAB MPAK 534-1267 mg/dL Serum (NOTE) [place] Result Comment: [place] result = 212 mg/dL. Disregard [facility] reference range. [facility]zer [place] Reference Range: 176-443 mg/dL Test performed by: [employer], [place], [place] This assay provides a measurement of the total kappa and the total lambda light chains, i.e., the amount of free (unattached) light chain in circulation and the amount of light chain linked to heavy chain in intact immunoglobulin molecules. Assays for serum free light chain only, kappa and lambda with ratio, may be more useful in evaluating and managing light chain gammopathies including those associated with myeloma, lymphoproliferative disorders, and amyloidosis. Results from the [facility] assay cannot be compared directly with previously generated results. LAB MPAL 253-653 mg/dL Serum Lambda (NOTE) Result Comment: Lambda result = 105 mg/dL. Disregard [facility] reference range. [facility] Lambda Reference Range: 91-240 mg/dL Test performed by: [employer], [place], [place] This assay provides a measurement of the total kappa and the total lambda light chains, i.e., the amount of free (unattached) light chain in circulation and the amount of light chain linked to heavy chain in intact immunoglobulin molecules. Assays for serum free light chain only, kappa and lambda with ratio, may be more useful in evaluating and managing light chain gammopathies inlcuding those associated with myeloma, lymphoproliferative disorders, and amyloidosis. Results from the [facility] assay cannot be compared directly with previously generated results. LAB MPAKL 1-3 MPA Juan Ramon/B[place]ley Ratio (NOTE) Result Comment: [place]/Lambda ratio = 2.02 Disregard [facility] reference range. Goodzer [place]/Lambda Ratio Reference Range: 1.29-2.55 Test performed by: [employer], [place], [place] This assay provides a measurement of the total kappa and the total lambda light chains, i.e., the amount of free (unattached) light chain in circulation and the amount of light chain linked to heavy chain in intact immunoglobulin molecules. Assays for the serum free light chain only, kappa and lambda with ratio, may be more useful in evaluating and managing light chain gammopathies including those associated with myeloma, lymphoproliferative disorders, and amyloidosis. Results from the [facility] assay cannot be compared directly with previously generated results. LAB MPAR No M protein is identified. No M protein MPA Result is identified. LAB MPASTF Reviewed by Staff Review Yaniv Rowell M.D. ([id number]) Performed By: #### B2M, HFP, KLFRS, SEPG, MPASRM #### [facility] [address], [place] [address] CNOVSP Observed: 12/22/2017 Status: COMPLETED Source: [place] 3:50 PM [facility] REPOSITORY Visit (SP) Office (ZOIE) GLENDY FLOERS JR. ([id number]) 1940 M Date Time Provider Department 12/22/17 3:50 PM ROBEL MADDEN During your visit today, we recorded the following information about you: Temperature Pulse Blood pressure Weight 96.8 degrees 78/minute 155/67 79.4 kg Holly Fish MADISON Patel, MADISON 12/22/2017 4:18 PM Signed Est pt. Discuss recent lab results, Hollyhernando Fish MADISON Patel DO 12/22/2017 5:10 PM Signed Diagnosis: 1) Multiple myeloma. Baseline assessment on initial diagnosis: IMWG criteria, [place] Journal of Haematology 121: 749?57, 2003, update in: Rosemaryie et al. Leukemia 20: 1467-73, 2006 and at IMW meeting Jaye 2010 ? Symptomatic multiple myeloma: IgG kappa. ? Related Organ or Tissue Involvement (CRAB) or other Myeloma Defining Event (MDE): Anemia requiring transfusion. Otherwise, baseline bone survey 09/04/2016 revealed no lytic lesions. Baseline serum calcium, ionized value 1.2 mmol per liter. Baseline serum creatinine 1.2 mg/dL. ? Antecedent plasma cell dyscrasia: None known. ? Myeloma FISH panel: 13q14 (RB1): ? ? 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 ?Normal pattern 14q32 (IGH): ? ? 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 The translocation partner cannot be identified. These corresponds to standard risk disease. ? Cytogenetics: Pending. ? LDH: 210 (135-225 U/L) ? ISS stage: B2M not drawn. ? [place] Durie Stage: III (anemia with Hgb < 8.5 g/dL) ? Monoclonal proteins at diagnosis: Serum M-spike: 7.5 gm/dL, Involved serum free light chains: wiscl=6196.0 mg/L, Uninvolved serum free light chains: lambda= 5.8 mg/L. ? Bone marrow plasma cell infiltration: 22%. HPI: The patient is a 77 yo male with PMH significant for CAD, PVD, HTN and DM2. The patient had a CBC done on 01/23/2016. At that time the white count was 6300. Hemoglobin was 10.6 g/dL and the platelet count 179,000. Chemistries at that time included a basic metabolic profile that showed a creatinine of 1.0 mg/dL. Patient had repeat CBC on 07/12/2016. The hemoglobin was noted to be 8.7 g/dL. The total white count was 6600. The differential was unremarkable. Platelet count 134,000. Chemistries were remarkable for a total serum protein at 14 g/dL. Albumin was 3.4 g/dL. Globulin fraction was not able to be determined. The remainder the chemistries were unremarkable and specifically the serum creatinine was 0.9. CBC was repeated on 07/22/2016 the hemoglobin was 8.5 g/dL. Again the total white count differential were normal. Platelet count 135,000 serum protein 14.1 g/dL. Globulin fraction was noted to be outside the reportable range. He was admitted to [facility] the first week of August. He had significant anemia and received a 2 unit red blood cell transfusion. He underwent EGD and colonoscopy. 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 Most significantly he had been having epistaxis in the few weeks prior to presentaton. This required packing. He also underwent a cauterization sometime in the last week or so but had significant right-sided epistaxis before coming in today. He is not on anticoagulation. He denies other bleeding problems. Previous therapy: 1) VCd x8 cycles. 2) Vd x2 cycles. 3) RVd x1 cycle--started lenalidomide 07/25/2017. Current therapy: 1) Rd. Presents for ongoing hematologic management. Interim history: His rectal bleeding had stopped and he canceled his appointment with Dr. Kapoor. Now on the last couple days he is having more rectal bleeding again. He is not short of breath at rest. No chest pain. He's been off Revlimid secondary to GI bleeding which is not because of Revlimid but I didn't want to exacerbate the anemia. He's not had any episode of fever. Appetite is doing okay. He has a headache today. Neuropathy pain is under good control but he didn't take his medication today so he is having a flare. PMH, medications and allergies as below personally reviewed by me today. Any changes documented in appropriate section. ROS: Constitutional: See above. Neuro: See above. HEENT: No recent change in voice, vision or hearing. Resp: No cough or sputum production. No wheeze. No shortness of breath at rest. CVS: Denies PND and orthopnea. He has chronic mild swelling/pitting edema of both legs worse on the left secondary to previous vein harvest for bypass surgery--stable. GI: Denies symptoms of stomatitis. Denies dysphagia and odynophagia. Denies abdominal pain. He has chronic constipation and occasionally takes stool softeners to help his bowels move. He doesn't take them consistently. : Denies dysuria or gross hematuria. No symptoms of bladder outlet obstruction. Endo: Denies hot flashes. Denies polyuria and polydipsia. Denies heat and cold intolerance. Musculoskeletal: Denies bone, joint and muscular pain. Stable lower back pain. Derm: Denies rash. Denies jaundice and diffuse pruritis. Heme: See above. Psych: Normal mood. PHYSICAL EXAM: Vitals: Blood pressure 155/67, pulse 78, temperature 36 ?C (96.8 ?F), weight 79.4 kg (175 lb). Well-appearing and in no acute distress. EYES: Sclerae are anicteric bilaterally. NECK: Supple. LYMPHATIC: There is no palpable cervical, supraclavicular denopathy. RESPIRATORY: Inspiratory breath sounds are of normal intensity in all thakur. No rales, wheezes or rhonchi. CARDIOVASCULAR: Rhythm is regular. Normal intensity S1/S2. ABDOMEN: The abdomen is nondistended. No organomegaly. No tenderness. Extremities: Mild swelling with trace edema of distal LEs. SKIN: No rash. No petechiae. NEUROLOGIC: ore trimmer II-XII are grossly intact. No focal motor weakness--symmetric diffuse weakness of the legs. MUSCULOSKELETAL: No muscle wasting. ASSESSMENT/PLAN: (C90.00) Multiple myeloma not having achieved remission (HCC) (primary encounter diagnosis) (D75.9) Hyperviscosity Assessment: -IgG kappa multiple myeloma. -Symptomatic anemia presentation requiring transfusion. -He also had significantly elevated serum protein with some symptoms of hyperviscosity including epistaxis and previous GI bleeding. -Improved neuropathy off Velcade. -Serum protein continues to incrementally decline with use of Rd alone. > 50% drop since July. Plan: -Off bortezomib. -Hold Revlimid until rectal bleeding addressed. -Continue dexamethasone 20 mg once a week x3 weeks with day 1, 8 and 15 of lenalidomide. Supportive care: Hematology: Hemoglobin increased since last week but he is now having rectal bleeding again. He'll be referred to general surgery for this. Iron studies will be checked today. We will continue monitoring CBC for possible transfusion on a weekly basis. Renal: Normal creatinine at baseline--clinically no evidence for renal dysfunction. Infectious diseases: Continue prophylactic acyclovir. Musculoskeletal: Has h/o MS pain including chronic low back pain from injury at [employer] and left knee pain--stable. Bisphoshonates: No obvious lytic lesions at baseline evaluation and baseline DEXA showed normal bone density. This is in keeping with the [facility] care-path guidelines to hold on bisphosphonate therapy. Venous thromboembolism risk: He continues on low dose ASA and Plavix. He will continue these medications for now, but may have to hold if has significant source of GI bleeding. control counseling: Neurology: Baseline neuropathy improved. (E11.51) Type 2 diabetes mellitus with diabetic peripheral angiopathy without gangrene, unspecified custodial insulin use status ([facility]) (I73.9) PAD (peripheral artery disease) ([facility]) -He will continue follow-up with his PCP for these issues. Robel Madden DO Referring Provider: ROBEL MADDEN [[id number]] Allergies As of Date: 12/22/2017 (No Known Allergies) Date Reviewed: 12/22/2017 Reviewed by: Holly Fish (Director Index) MADISON Patel - Fully Assessed Reason for Visit: Established Patient [[id number]] Primary Visit Diagnosis:Multiple myeloma not having achieved remission (HCC) [C90.00] Other Visit Diagnosis: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 chemotherapy [D64.81, T45.1X5A] Order(s):FERRITIN BLD [SQFERR] Order #: [id number] FUTURE IRON + TIBC [SQIRON] Order #: [id number] FUTURE Follow-up and Disposition History Recorded Prescriptions as of 12/22/2017 Sig: LENALIDOMIDE 15 MG CAPSULE Take 1 capsule by mouth once * TRIAMCINOLONE ACETONIDE 0.025* Apply 1 application to affect* OXYBUTYNIN CHLORIDE ER 10 MG * Take 10 mg by mouth once juan miguel* DEXAMETHASONE 4 MG TABLET Take 5 tablets by mouth once * NYSTATIN 100,000 UNIT/ML ORAL* Take 5 mL by mouth four times* ACYCLOVIR 400 MG TABLET TAKE ONE TABLET BY MOUTH TWIC* CLOPIDOGREL 75 MG TABLET Take 75 mg by mouth once juan miguel* PANTOPRAZOLE 40 MG TABLET,DEL* Take 40 mg by mouth once juan miguel* DULCOLAX (BISACODYL) ORAL Take 1 tablet by mouth as nee* ONDANSETRON HCL 8 MG TABLET TAKE ONE TABLET BY MOUTH EVER* SENNOSIDES 8.6 MG-DOCUSATE SO* Take 1 tablet by mouth once d* VITAMINS AND MINERALS ORAL Take by mouth once daily. FUROSEMIDE 20 MG TABLET Take 20 mg by mouth once juan miguel* HYDROCODONE 10 MG-ACETAMINOPH* Take 1 tablet by mouth every * TAMSULOSIN 0.4 MG CAPSULE Take 0.4 mg by mouth once donna* VYTORIN 10 MG-80 MG TABLET daily at bedtime. * AMLODIPINE 10 MG-BENAZEPRIL 2* Take one(1) tablet daily. * PIOGLITAZONE 45 MG TABLET Take one(1) tablet daily. * VALSARTAN 320 MG-HYDROCHLOROT* Take one(1) tablet daily. * ASPIRIN 81 MG CHEWABLE TABLET Take one(1) tablet daily. * GABAPENTIN 100 MG CAPSULE Take one(1) tablet 2-3 times * OXYBUTYNIN CHLORIDE ER 5 MG T* Take 5 mg by mouth once daily* GLUCOTROL XL 10 MG TABLET,EXT* 10 mg once daily. Medication notes this encounter GLUCOTROL XL 10 MG TABLET,EXTENDED RELEASE >> Holly Patel LPN, LPN 12/22/2017 3:51 PM >> HLOLY PATEL FriDec 22, 2017 3:51 PM discontinued Problem List As Of Date 12/22/2017 Noted Resolved Hypertension [I10] INVALID FOR* Hypercholesteremia [E78.00] INVALID FOR* PAD (peripheral artery disease) [I73.9] INVALID FOR* Nevus [D22.9] INVALID FOR*09/06/2016 Multiple myeloma not having achieved remission *INVALID FOR* 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 FOR* 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 chemotherapy [D64.*INVALID FOR* Visit Notes: >> Holly Fish (Madison) MADISON Patel Mon Dec 22, 2017 3:52 PM Status: Signed Est pt. Discuss recent lab results, Holly Fish MADISON Patel Encounter Status:Closed by ROBEL MADDEN DO on 12/22/17 [place] ABS GR + CBC Collected: 12/16/2017 Status: F Source: [place] 11:55 AM [facility] REPOSITORY TYPE CODE TESTS RESULT OUT OF REFERENCE UNITS RANGE LAB WWBC 3.70-11.00 k/uL [place] WBC 4.70 LAB WRBC 4.20-6.00 m/uL Low [place] RBC 2.54 LAB WHGB 13.0-17.0 g/dL Low [place] Hemoglobin 8.3 LAB WHCT 39.0-51.0 % Low [place] Hematocrit 24.7 LAB WMCV 80.0-100.0 fL [place] MCV 97.2 LAB WMCH 26.0-34.0 pg [place] MCH 32.7 LAB WMCHC 30.5-36.0 g/dL [place] MCHC 33.6 LAB WRDW 11.5-15.0 % [place] High RDW 16.1 LAB WPLT 150-400 k/uL [place] Platelet Cnt 193 LAB WMPV 9.0-12.7 fL [place] MPV 9.7 Result Comment: Test performed at: [facility], [address] [place] [address]. LAB ABGRAN 1.45-7.50 k/uL Absol Gran 1.62 Count [place] ABS GR + CBC Collected: 12/09/2017 Status: F Source: [place] 12:30 PM [facility] REPOSITORY TYPE CODE TESTS RESULT OUT OF REFERENCE UNITS RANGE LAB WWBC 3.70-11.00 k/uL [place] WBC 5.50 LAB WRBC 4.20-6.00 m/uL Low [place] RBC 2.55 LAB WHGB 13.0-17.0 g/dL Low [place] Hemoglobin 8.2 LAB WHCT 39.0-51.0 % Low [place] Hematocrit 24.8 LAB WMCV 80.0-100.0 fL [place] MCV 97.3 LAB WMCH 26.0-34.0 pg [place] MCH 32.2 LAB WMCHC 30.5-36.0 g/dL [place] MCHC 33.1 LAB WRDW 11.5-15.0 % [place] High RDW 16.2 LAB WPLT 150-400 k/uL Low [place] Platelet Cnt 141 LAB WMPV 9.0-12.7 fL [place] MPV 10.4 Result Comment: Test performed at: [facility] [place], [address] [place] [address]. LAB ABGRAN 1.45-7.50 k/uL Absol Gran 3.29 Count [place] ISTAT BMP Collected: 12/02/2017 Status: F Source: [place] 11:15 AM [facility] REPOSITORY TYPE CODE TESTS RESULT OUT OF REFERENCE UNITS RANGE LAB NAWB 135-146 mmol/L Low Sodium, Whole 131 Bld LAB K1WB 3.5-5.0 mmol/L Potassium,Who 4.0 le Bld LAB CLWB 98-110 mmol/L Low Chloride, 92 Whole Bld LAB ICAWB 1.08-1.30 mmol/L Ionized 1.15 Calcium, WB Result Comment: Please note: This value represents ionized calcium not total calcium. LAB CO2WB 23-32 mmol/L TCO2, Whole 23 Blood LAB GLUWB 65-100 mg/dL High Glucose, 302 Whole Bld LAB BUNWB 10-25 mg/dL BUN, Whole 24 Blood LAB BCRET 0.70-1.40 mg/dL Creatinine,Wh 1.30 ole Bld LAB AGAPWB 0-15 mmol/L High Anion Gap, 16 Whole Bld LAB GFRAA eGFR- >60 Amer. LAB GFRNAA . eGFR-All 54 Other Races Result Comment: eGFR (Estimated GFR) Units of measure: mL/min/1.73 meters squared eGFR is derived from the reexpressed MDRD Study equation using the following parameters: serum creatinine, age, gender and race. The creatinine assay has been calibrated to be traceable to [employer]. An eGFR <60 mL/min/1.73m2 for >3 months is consistent with chronic kidney disease. Refer to KDOQI guidelines for clinical interpretation. In patients with unstable renal function, e.g. those with acute kidney injury, the eGFR may not accurately reflect actual GFR. [place] ABS GR + CBC Collected: 12/02/2017 Status: F Source: [place] 11:15 AM [facility] REPOSITORY TYPE CODE TESTS RESULT OUT OF REFERENCE UNITS RANGE LAB WWBC 3.70-11.00 k/uL [place] WBC 6.92 LAB WRBC 4.20-6.00 m/uL Low [place] RBC 2.57 LAB WHGB 13.0-17.0 g/dL Low [place] Hemoglobin 8.3 LAB WHCT 39.0-51.0 % Low [place] Hematocrit 25.0 LAB WMCV 80.0-100.0 fL [place] MCV 97.3 LAB WMCH 26.0-34.0 pg [place] MCH 32.3 LAB WMCHC 30.5-36.0 g/dL [place] MCHC 33.2 LAB WRDW 11.5-15.0 % [place] High RDW 17.2 LAB WPLT 150-400 k/uL [place] Platelet Cnt 188 LAB WMPV 9.0-12.7 fL [place] MPV 9.6 Result Comment: Test performed at: [facility], [address] [place] [address] Rd[address] [place] [address]. LAB ABGRAN 1.45-7.50 k/uL Absol Gran 5.68 Count [place] ABS GR + CBC Collected: 11/25/2017 Status: F Source: [place] 12:00 PM [facility] REPOSITORY TYPE CODE TESTS RESULT OUT OF REFERENCE UNITS RANGE LAB WWBC 3.70-11.00 k/uL [place] WBC 4.65 LAB WRBC 4.20-6.00 m/uL Low [place] RBC 2.59 LAB WHGB 13.0-17.0 g/dL Low [place] Hemoglobin 8.3 LAB WHCT 39.0-51.0 % Low [place] Hematocrit 25.2 LAB WMCV 80.0-100.0 fL [place] MCV 97.3 LAB WMCH 26.0-34.0 pg [place] MCH 32.0 LAB WMCHC 30.5-36.0 g/dL [place] MCHC 32.9 LAB WRDW 11.5-15.0 % [place] High RDW 17.4 LAB WPLT 150-400 k/uL [place] Platelet Cnt 227 LAB WMPV 9.0-12.7 fL [place] MPV 9.8 Result Comment: Test performed at: [facility] [place], [address] [place] [address]. LAB ABGRAN 1.45-7.50 k/uL Absol Gran 2.21 Count [place] ISTAT BMP Collected: 11/25/2017 Status: F Source: [place] 12:00 PM [facility] REPOSITORY TYPE CODE TESTS RESULT OUT OF REFERENCE UNITS RANGE LAB NAWB 135-146 mmol/L Low Sodium, Whole 134 Bld LAB K1WB 3.5-5.0 mmol/L Potassium,Who 4.0 le Bld LAB CLWB 98-110 mmol/L Chloride, 98 Whole Bld LAB ICAWB 1.08-1.30 mmol/L Ionized 1.21 Calcium, WB Result Comment: Please note: This value represents ionized calcium not total calcium. LAB CO2WB 23-32 mmol/L TCO2, Whole 24 Blood LAB GLUWB 65-100 mg/dL High Glucose, 155 Whole Bld LAB BUNWB 10-25 mg/dL BUN, Whole 19 Blood LAB BCRET 0.70-1.40 mg/dL Creatinine,Wh 1.10 ole Bld LAB AGAPWB 0-15 mmol/L Anion Gap, 12 Whole Bld LAB GFRAA eGFR- >60 Amer. LAB GFRNAA . eGFR-All >60 Other Races Result Comment: eGFR (Estimated GFR) Units of measure: mL/min/1.73 meters squared eGFR is derived from the reexpressed MDRD Study equation using the following parameters: serum creatinine, age, gender and race. The creatinine assay has been calibrated to be traceable to [employer]. An eGFR <60 mL/min/1.73m2 for >3 months is consistent with chronic kidney disease. Refer to KDOQI guidelines for clinical interpretation. In patients with unstable renal function, e.g. those with acute kidney injury, the eGFR may not accurately reflect actual GFR. FERRITIN Collected: 11/25/2017 Status: F Source: [place] 12:00 PM [facility] REPOSITORY TYPE CODE TESTS RESULT OUT OF REFERENCE UNITS RANGE LAB FERR 30.3-565.7 ng/mL Ferritin 320.0 Performed By: #### FERR, IRON #### [facility] [address], [place] [address] IRON AND TIBC Collected: 11/25/2017 Status: F Source: [place] 12:00 PM [facility] REPOSITORY TYPE CODE TESTS RESULT OUT OF REFERENCE UNITS RANGE LAB IRN 41-186 ug/dL Iron 44 LAB TIBC 232-386 ug/dL TIBC 285 LAB SAT 15-57 % Transferrin Saturatn 15 Performed By: #### FERR, IRON #### [facility] [address] [place], [place] [address] PROGRESS Observed: 11/14/2017 Status: COMPLETED Source: [place] 2:39 PM [facility] REPOSITORY HNO ID: [id number] Author: Robel Madden Service: (none) Author Type: Physician Type: Progress Notes Filed: 11/14/2017 3:13 PM Note Text: Diagnosis: 1) Multiple myeloma. Baseline assessment on initial diagnosis: IMWG criteria, [place] Journal of Haematology 121: 749?57, 2003, update in: Rosemaryie et al. Leukemia 20: 1467-73, 2006 and at IMW meeting Jaye 2010 ? Symptomatic multiple myeloma: IgG kappa. ? Related Organ or Tissue Involvement (CRAB) or other Myeloma Defining Event (MDE): Anemia requiring transfusion. Otherwise, baseline bone survey 09/04/2016 revealed no lytic lesions. Baseline serum calcium, ionized value 1.2 mmol per liter. Baseline serum creatinine 1.2 mg/dL. ? Antecedent plasma cell dyscrasia: None known. ? Myeloma FISH panel: 13q14 (RB1): ? ? 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 ?Normal pattern 14q32 (IGH): ? ? 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 The translocation partner cannot be identified. These corresponds to standard risk disease. ? Cytogenetics: Pending. ? LDH: 210 (135-225 U/L) ? ISS stage: B2M not drawn. ? [place] Stage: III (anemia with Hgb < 8.5 g/dL) ? Monoclonal proteins at diagnosis: Serum M-spike: 7.5 gm/dL, Involved serum free light chains: kfqba=2727.0 mg/L, Uninvolved serum free light chains: lambda= 5.8 mg/L. ? Bone marrow plasma cell infiltration: 22%. HPI: The patient is a 77 yo male with PMH significant for CAD, PVD, HTN and DM2. The patient had a CBC done on 01/23/2016. At that time the white count was 6300. Hemoglobin was 10.6 g/dL and the platelet count 179,000. Chemistries at that time included a basic metabolic profile that showed a creatinine of 1.0 mg/dL. Patient had repeat CBC on 07/12/2016. The hemoglobin was noted to be 8.7 g/dL. The total white count was 6600. The differential was unremarkable. Platelet count 134,000. Chemistries were remarkable for a total serum protein at 14 g/dL. Albumin was 3.4 g/dL. Globulin fraction was not able to be determined. The remainder the chemistries were unremarkable and specifically the serum creatinine was 0.9. CBC was repeated on 07/22/2016 the hemoglobin was 8.5 g/dL. Again the total white count differential were normal. Platelet count 135,000 serum protein 14.1 g/dL. Globulin fraction was noted to be outside the reportable range. He was admitted to [facility] the first week of August. He had significant anemia and received a 2 unit red blood cell transfusion. He underwent EGD and colonoscopy. 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 Most significantly he had been having epistaxis in the few weeks prior to presentaton. This required packing. He also underwent a cauterization sometime in the last week or so but had significant right- sided epistaxis before coming in today. He is not on anticoagulation. He denies other bleeding problems. Previous therapy: 1) VCd x8 cycles. 2) Vd x2 cycles. 3) RVd x1 cycle--started lenalidomide 07/25/2017. Current therapy: 1) Rd. Presents for ongoing hematologic management. Interim history: Had prostate biopsy 10/23. Since then has had intermittent blood in stools and urine. He says his been feeling a little more shaky and run down last week or so. No abdominal pain, bloating or distention. No nausea or vomiting. Currently he is not complaining of any cardiac symptoms including angina or palpitation. He is not short of breath at rest. Neuropathic pain stable. PMH, medications and allergies as below personally reviewed by me today. Any changes documented in appropriate section. ROS: Constitutional: See above. Neuro: See above. HEENT: No recent change in voice, vision or hearing. Resp: No cough or sputum production. No wheeze. No shortness of breath at rest. CVS: Denies PND and orthopnea. He has chronic mild swelling/pitting edema of both legs worse on the left secondary to previous vein harvest for bypass surgery--stable. GI: Denies symptoms of stomatitis. Denies dysphagia and odynophagia. Denies abdominal pain. He has chronic constipation and occasionally takes stool softeners to help his bowels move. He doesn't take them consistently. : Denies dysuria or gross hematuria. No symptoms of bladder outlet obstruction. Endo: Denies hot flashes. Denies polyuria and polydipsia. Denies heat and cold intolerance. Musculoskeletal: Denies bone, joint and muscular pain. Stable lower back pain. Derm: Denies rash. Denies jaundice and diffuse pruritis. Heme: See above. Psych: Normal mood. PHYSICAL EXAM: Vitals: Blood pressure (!) 121/48, pulse 70, temperature 37.2 ?C (98.9 ?F), temperature source Oral, weight 78.5 kg (173 lb). Well-appearing and in no acute distress. EYES: Sclerae are anicteric bilaterally. NECK: Supple. LYMPHATIC: There is no palpable cervical, supraclavicular denopathy. RESPIRATORY: Inspiratory breath sounds are of normal intensity in all thakur. No rales, wheezes or rhonchi. CARDIOVASCULAR: Rhythm is regular. Normal intensity S1/S2. ABDOMEN: The abdomen is nondistended. No organomegaly. No tenderness. Extremities: Mild swelling with trace edema of distal LEs. SKIN: No rash. No petechiae. NEUROLOGIC: ore trimmer II-XII are grossly intact. No focal motor weakness--symmetric diffuse weakness of the legs. MUSCULOSKELETAL: No muscle wasting. LABS: Component Latest Ref Rng AND Units 06/25/2017 07/24/2017 08/20/2017 09/18/2017 10/16/2017 Protein, Total 6.0 - 8.4 g/dL 7.4 7.0 7.3 6.9 6.3 Albumin for SPE 3.37 - 4.23 gm/dL 3.77 3.73 3.44 3.58 3.32 (L) Alpha 1 Globulin 0.18 - 0.31 gm/dL 0.29 0.26 0.41 (H) 0.31 0.30 Alpha 2 Globulin 0.52 - 0.97 gm/dL 1.02 (H) 0.92 1.07 (H) 1.04 (H) 0.94 Beta Globulin 0.84 - 1.36 gm/dL 0.95 0.93 1.13 1.04 0.92 Gamma Globulin 0.70 - 1.44 gm/dL 1.37 1.17 1.25 0.93 0.82 Interpretation (Prot Electro) SEE COMMENT SEE COMMENT SEE COMMENT SEE COMMENT SEE COMMENT M-Protein Location Gamma fraction Gamma fraction Gamma fraction Gamma fraction Gamma fraction M-Protein Concentration 0.00 gm/dL 0.68 (H) 0.62 (H) 0.42 (H) 0.31 (H) 0.23 (H) SPE Staff Review Reviewed by Russell Carrera M.D., PhD ([id number]) Reviewed by Russell Carrera M.D., PhD ([id number]) Reviewed by Yaniv Rowell M.D. ([id number]) Reviewed by Russell Carrera M.D., PhD ([id number]) Reviewed by Yaniv Rowell M.D. ([id number]) [place] Free, Serum 3.30 - 19.40 mg/L 37.0 (H) 39.7 (H) 44.6 (H) 23.9 (H) 30.8 (H) Lambda Free, Serum 5.7 - 26.3 mg/L 9.2 10.1 24.1 14.8 16.6 K/L Ratio, Serum 0.26 - 1.65 4.02 (H) 3.93 (H) 1.85 (H) 1.61 1.86 (H) PATHOLOGY: BONE MARROW, ASPIRATE SMEARS, CORE BIOPSY, AND CLOT SECTION, WITH PERIPHERAL BLOOD SMEAR (A-C): - PLASMA CELL MYELOMA, KAPPA-MONOTYPIC (30% OF CELLULARITY). - NORMOCELLULAR MARROW (40%) WITH TRILINEAGE HEMATOPOIESIS. - NORMOCYTIC ANEMIA AND THROMBOCYTOPENIA. - DECREASED STORAGE IRON. - SEE COMMENT. ? ? ? COMMENT: The patient was recently found to have an IgG kappa paraprotein. Correlation with results of pending conventional cytogenetic analysis and fluorescence in situ hybridization studies is recommended. PERIPHERAL BLOOD: CBC ?(08/21/2016): ?WBC ? 6.44 ; ? Hgb ? 8.9 ; ? MCV ? 90.4 ; ? RDW ? 17.7 ; ? Plts ?119. Differential (%): ? ? ?Segs ? 56 ; ? Lymphs ? 40 ;?? Monos ? 4 ; ? Eos ? 0 ; ? Baso ?0. Morphology/Interpretation: ?Normocytic anemia with rouleaux formation. Thrombocytopenia. Red blood cell anisocytosis. BONE MARROW ASPIRATE: ? ?Normal % ? ?(0-2) ? ? 0 % ? Blasts ? ?(1-5) ? ? 0 % ? Promyelo ? ?(32-72) ?43 % ? Myelos/Metas/Bands/Segs ? ?(1-6) ? ? 1 % ? Eosinophils ? ?(0-1) ? ? 0 % ? Basophils ? ?(0-4) ? ? 1 % ? Monocytes ? ?(13-37) ?18 % ? Erythroid precursors ? ?(7-23) ? 15 % ? Lymphocytes ? ?(0-2) ? ?22 % ? Plasma cells ASSESSMENT/PLAN: (C90.00) Multiple myeloma not having achieved remission (HCC) (primary encounter diagnosis) (D75.9) Hyperviscosity Assessment: -IgG kappa multiple myeloma. -Symptomatic anemia presentation requiring transfusion. -He also had significantly elevated serum protein with some symptoms of hyperviscosity including epistaxis and previous GI bleeding. -Improved neuropathy off Velcade. -Serum protein continues to incrementally decline with use of Rd alone. > 50% drop since July. Plan: -Off bortezomib. -Hold next cycle due to below. Consider restarting lenalidomide with cycle #5 beginning Tuesday 11/21 pending results of CBC. -Continue dexamethasone 20 mg once a week x3 weeks with day 1, 8 and 15 of lenalidomide. Supportive care: Hematology: Friday decrease in hemoglobin since last measured. History above of rectal bleeding and occasional hematuria most likely contributing. I asked his to hold off on starting his current cycle of Revlimid and dexamethasone which typically would start today until next week when we have a chance to review his CBC for potential transfusion. Also referral to Dr. Spencer for evaluation of rectal bleeding. Renal: Normal creatinine at baseline--clinically no evidence for renal dysfunction. Infectious diseases: Continue prophylactic acyclovir. Musculoskeletal: Has h/o MS pain including chronic low back pain from injury at [employer] and left knee pain--stable. Bisphoshonates: No obvious lytic lesions at baseline evaluation and baseline DEXA showed normal bone density. This is in keeping with the [facility] care-path guidelines to hold on bisphosphonate therapy. Venous thromboembolism risk: He continues on low dose ASA and Plavix. He will continue these medications for now, but may have to hold if has significant source of GI bleeding. control counseling: Neurology: Baseline neuropathy improved. (E11.51) Type 2 diabetes mellitus with diabetic peripheral angiopathy without gangrene, unspecified rat exterminator insulin use status ([facility]) (I73.9) PAD (peripheral artery disease) ([facility]) -He will continue follow-up with his PCP for these issues. Robel Madden, DO [place] ABS GR + CBC Collected: 11/14/2017 Status: F Source: [place] 2:35 PM [facility] REPOSITORY TYPE CODE TESTS RESULT OUT OF REFERENCE UNITS RANGE LAB WWBC 3.70-11.00 k/uL [place] WBC 5.16 LAB WRBC 4.20-6.00 m/uL Low [place] RBC 2.47 LAB WHGB 13.0-17.0 g/dL Low [place] Hemoglobin 8.0 LAB WHCT 39.0-51.0 % Low [place] Hematocrit 23.6 LAB WMCV 80.0-100.0 fL [place] MCV 95.5 LAB WMCH 26.0-34.0 pg [place] MCH 32.4 LAB WMCHC 30.5-36.0 g/dL [place] MCHC 33.9 LAB WRDW 11.5-15.0 % [place] High RDW 16.6 LAB WPLT 150-400 k/uL [place] Platelet Cnt 173 LAB WMPV 9.0-12.7 fL [place] MPV 9.5 Result Comment: Test performed at: [facility] [place], [address] [place] [address]. LAB ABGRAN 1.45-7.50 k/uL Absol Gran 2.79 Count [place] ISTAT BMP Collected: 11/14/2017 Status: F Source: [place] 2:35 PM [facility] REPOSITORY TYPE CODE TESTS RESULT OUT OF REFERENCE UNITS RANGE LAB NAWB 135-146 mmol/L [place] Sodium, Whole 131 Bld LAB K1WB 3.5-5.0 mmol/L Potassium,Who 3.6 le Bld LAB CLWB 98-110 mmol/L Low Chloride, 94 Whole Bld LAB ICAWB 1.08-1.30 mmol/L Low Ionized 1.04 Calcium, WB Result Comment: Please note: This value represents ionized calcium not total calcium. LAB CO2WB 23-32 mmol/L TCO2, Whole 24 Blood LAB GLUWB 65-100 mg/dL High Glucose, 145 Whole Bld LAB BUNWB 10-25 mg/dL BUN, Whole 24 Blood LAB BCRET 0.70-1.40 mg/dL High Creatinine,Wh 1.80 ole Bld LAB AGAPWB 0-15 mmol/L Anion Gap, 13 Whole Bld LAB GFRAA eGFR- 44 Amer. LAB GFRNAA . eGFR-All 37 Other Races Result Comment: eGFR (Estimated GFR) Units of measure: mL/min/1.73 meters squared eGFR is derived from the reexpressed MDRD Study equation using the following parameters: serum creatinine, age, gender and race. The creatinine assay has been calibrated to be traceable to [employer]. An eGFR <60 mL/min/1.73m2 for >3 months is consistent with chronic kidney disease. Refer to KDOQI guidelines for clinical interpretation. In patients with unstable renal function, e.g. those with acute kidney injury, the eGFR may not accurately reflect actual GFR. B2 MICROGLOBULIN Collected: 11/14/2017 Status: F Source: [place] 2:35 PM [facility] REPOSITORY TYPE CODE TESTS RESULT OUT OF REFERENCE UNITS RANGE LAB B2M 0.8-2.2 mg/L B2 Microglobulin High 4.0 Performed By: #### B2M, HFP, KLFRS, MPASRM, SEPG #### [facility] [address] [place], [place] [address] HEPATIC FUNCTN PANEL Collected: 11/14/2017 Status: F Source: [place] 2:35 PM [facility] REPOSITORY TYPE CODE TESTS RESULT OUT OF REFERENCE UNITS RANGE LAB ALB 3.9-4.9 g/dL Low Albumin 3.5 LAB TBIL 0.2-1.3 mg/dL Bilirubin, Total 0.2 LAB CBIL <0.2 mg/dL Bilirubin,Conjuga <0.2 josé LAB ALKP 36-108 U/L Alkaline Phosphatase 75 LAB AST 14-40 U/L AST 16 LAB ALT 10-54 U/L ALT 16 LAB TP 6.3-8.0 g/dL Low Protein, Total 6.1 Performed By: #### B2M, HFP, KLFRS, MPASRM, SEPG #### [facility] [address] [place], [place] [address] KAPPA/MILLER,FREE,SER Collected: Status: F Source: [place] 11/14/2017 2:35 PM [facility] REPOSITORY TYPE CODE TESTS RESULT OUT OF REFERENCE UNITS RANGE LAB FKAPS 3.30-19.40 mg/L High [place], 37.1 Free, Serum Result Comment: Rarely, increased serum free light chains values may not be detected due to antigen excess phenomenon. Results should always be correlated with other laboratory results and clinical findings. LAB FLAMS 5.7-26.3 mg/L Lambda, Free, 22.2 Serum Result Comment: Rarely, increased serum free light chains values may not be detected due to antigen excess phenomenon. Results should always be correlated with other laboratory results and clinical findings. LAB KLRAT 0.26-1.65 High K/L Ratio, 1.67 Serum Performed By: #### B2M, HFP, KLFRS, MPASRM, SEPG #### [facility] [address] [place], [place] [address] MONOCLONL PROTEIN,BL Collected: 11/14/2017 Status: F Source: [place] 2:35 PM [facility] REPOSITORY TYPE CODE TESTS RESULT OUT OF REFERENCE UNITS RANGE LAB MPAIGG 717-1411 mg/dL Low MPA Serum 685 IgG LAB MPAIGA 78-391 mg/dL MPA Serum 140 IgA LAB MPAIGM 53-334 mg/dL Low 14 MPA Serum IgM LAB MPAK 534-1267 mg/dL Serum 534 [place] LAB MPAL 253-653 mg/dL Serum 266 Lambda LAB MPAKL 1-3 MPA 2.01 Juan Ramon/Bentley Ratio LAB MPAR No M protein is identified. No MPA M protein is Result identified. LAB MPASTF Staff Reviewed by Review Yaniv Rowell M.D. ([id number]) Performed By: #### B2M, HFP, KLFRS, MPASRM, SEPG #### [facility] [address] [place], [place] [address] PROTEIN ELECTROPHOR. Collected: 11/14/2017 Status: F Source: [place] 2:35 PM [facility] REPOSITORY TYPE CODE TESTS RESULT OUT OF REFERENCE UNITS RANGE LAB TPSPE 6.0-8.4 g/dL Total Protein, Low SPE 5.9 LAB ALBE 3.37-4.23 gm/dL Albumin Low 2.94 LAB A1GL 0.18-0.31 gm/dL Alpha 1 Globulin High 0.35 LAB A2GL 0.52-0.97 gm/dL Alpha 2 Globulin High 1.03 LAB BEGL 0.84-1.36 gm/dL Beta Globulin 1.01 LAB GAGL 0.70-1.44 gm/dL Gamma Globulin Low 0.57 LAB SPEINT Interpretation SEE COMMENT Result Comment: No definitive M protein is identified on protein electrophoresis. LAB LOC M Protein N/A Location LAB GPERDL 0.00 gm/dL M Cesar 0.00 Concentratn LAB SPESTF SPE Staff Review Reviewed by Yaniv Rowell M.D. ([id number]) Performed By: #### B2M, HFP, KLFRS, MPASRM, SEPG #### [facility] [address] [place], [place] [address] CNOVSP Observed: 11/14/2017 Status: COMPLETED Source: [place] 2:30 PM [facility] REPOSITORY Visit (SP) Office (HEMAWS) GLENDY FLORES JR. ([id number]) 1940 M Date Time Provider Department 11/14/17 2:30 PM ROBEL MADDEN During your visit today, we recorded the following information about you: Temperature Pulse Blood pressure Weight 98.9 degrees 70/minute 121/48 78.5 kg Robel Madden DO 11/14/2017 3:13 PM Signed Diagnosis: 1) Multiple myeloma. Baseline assessment on initial diagnosis: IMWG criteria, [place] Journal of Haematology 121: 749?57, 2003, update in: Júnior et al. Leukemia 20: 1467-73, 2006 and at IMW meeting Jaye 2010 ? Symptomatic multiple myeloma: IgG kappa. ? Related Organ or Tissue Involvement (CRAB) or other Myeloma Defining Event (MDE): Anemia requiring transfusion. Otherwise, baseline bone survey 09/04/2016 revealed no lytic lesions. Baseline serum calcium, ionized value 1.2 mmol per liter. Baseline serum creatinine 1.2 mg/dL. ? Antecedent plasma cell dyscrasia: None known. ? Myeloma FISH panel: 13q14 (RB1): ? ? 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 ?Normal pattern 14q32 (IGH): ? ? 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 The translocation partner cannot be identified. These corresponds to standard risk disease. ? Cytogenetics: Pending. ? LDH: 210 (135-225 U/L) ? ISS stage: B2M not drawn. ? [place] Dur[place] Stage: III (anemia with Hgb < 8.5 g/dL) ? Monoclonal proteins at diagnosis: Serum M-spike: 7.5 gm/dL, Involved serum free light chains: iylcn=5541.0 mg/L, Uninvolved serum free light chains: lambda= 5.8 mg/L. ? Bone marrow plasma cell infiltration: 22%. HPI: The patient is a 77 yo male with PMH significant for CAD, PVD, HTN and DM2. The patient had a CBC done on 01/23/2016. At that time the white count was 6300. Hemoglobin was 10.6 g/dL and the platelet count 179,000. Chemistries at that time included a basic metabolic profile that showed a creatinine of 1.0 mg/dL. Patient had repeat CBC on 07/12/2016. The hemoglobin was noted to be 8.7 g/dL. The total white count was 6600. The differential was unremarkable. Platelet count 134,000. Chemistries were remarkable for a total serum protein at 14 g/dL. Albumin was 3.4 g/dL. Globulin fraction was not able to be determined. The remainder the chemistries were unremarkable and specifically the serum creatinine was 0.9. CBC was repeated on 07/22/2016 the hemoglobin was 8.5 g/dL. Again the total white count differential were normal. Platelet count 135,000 serum protein 14.1 g/dL. Globulin fraction was noted to be outside the reportable range. He was admitted to [facility] the first week of August. He had significant anemia and received a 2 unit red blood cell transfusion. He underwent EGD and colonoscopy. 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 Most significantly he had been having epistaxis in the few weeks prior to presentaton. This required packing. He also underwent a cauterization sometime in the last week or so but had significant right-sided epistaxis before coming in today. He is not on anticoagulation. He denies other bleeding problems. Previous therapy: 1) VCd x8 cycles. 2) Vd x2 cycles. 3) RVd x1 cycle--started lenalidomide 07/25/2017. Current therapy: 1) Rd. Presents for ongoing hematologic management. Interim history: Had prostate biopsy 10/23. Since then has had intermittent blood in stools and urine. He says his been feeling a little more shaky and run down last week or so. No abdominal pain, bloating or distention. No nausea or vomiting. Currently he is not complaining of any cardiac symptoms including angina or palpitation. He is not short of breath at rest. Neuropathic pain stable. PMH, medications and allergies as below personally reviewed by me today. Any changes documented in appropriate section. ROS: Constitutional: See above. Neuro: See above. HEENT: No recent change in voice, vision or hearing. Resp: No cough or sputum production. No wheeze. No shortness of breath at rest. CVS: Denies PND and orthopnea. He has chronic mild swelling/pitting edema of both legs worse on the left secondary to previous vein harvest for bypass surgery--stable. GI: Denies symptoms of stomatitis. Denies dysphagia and odynophagia. Denies abdominal pain. He has chronic constipation and occasionally takes stool softeners to help his bowels move. He doesn't take them consistently. : Denies dysuria or gross hematuria. No symptoms of bladder outlet obstruction. Endo: Denies hot flashes. Denies polyuria and polydipsia. Denies heat and cold intolerance. Musculoskeletal: Denies bone, joint and muscular pain. Stable lower back pain. Derm: Denies rash. Denies jaundice and diffuse pruritis. Heme: See above. Psych: Normal mood. PHYSICAL EXAM: Vitals: Blood pressure (!) 121/48, pulse 70, temperature 37.2 ?C (98.9 ?F), temperature source Oral, weight 78.5 kg (173 lb). Well-appearing and in no acute distress. EYES: Sclerae are anicteric bilaterally. NECK: Supple. LYMPHATIC: There is no palpable cervical, supraclavicular denopathy. RESPIRATORY: Inspiratory breath sounds are of normal intensity in all thakur. No rales, wheezes or rhonchi. CARDIOVASCULAR: Rhythm is regular. Normal intensity S1/S2. ABDOMEN: The abdomen is nondistended. No organomegaly. No tenderness. Extremities: Mild swelling with trace edema of distal LEs. SKIN: No rash. No petechiae. NEUROLOGIC: ore trimmer II-XII are grossly intact. No focal motor weakness--symmetric diffuse weakness of the legs. MUSCULOSKELETAL: No muscle wasting. LABS: Component Latest Ref Rng AND Units 06/25/2017 07/24/2017 08/20/2017 09/18/2017 10/16/2017 Protein, Total 6.0 - 8.4 g/dL 7.4 7.0 7.3 6.9 6.3 Albumin for SPE 3.37 - 4.23 gm/dL 3.77 3.73 3.44 3.58 3.32 (L) Alpha 1 Globulin 0.18 - 0.31 gm/dL 0.29 0.26 0.41 (H) 0.31 0.30 Alpha 2 Globulin 0.52 - 0.97 gm/dL 1.02 (H) 0.92 1.07 (H) 1.04 (H) 0.94 Beta Globulin 0.84 - 1.36 gm/dL 0.95 0.93 1.13 1.04 0.92 Gamma Globulin 0.70 - 1.44 gm/dL 1.37 1.17 1.25 0.93 0.82 Interpretation (Prot Electro) SEE COMMENT SEE COMMENT SEE COMMENT SEE COMMENT SEE COMMENT M-Protein Location Gamma fraction Gamma fraction Gamma fraction Gamma fraction Gamma fraction M-Protein Concentration 0.00 gm/dL 0.68 (H) 0.62 (H) 0.42 (H) 0.31 (H) 0.23 (H) SPE Staff Review Reviewed by Russell Carrera M.D., PhD ([id number]) Reviewed by Russell Carrera M.D., PhD ([id number]) Reviewed by Yaniv Rowell M.D. ([id number]) Reviewed by Russell Carrera M.D., PhD ([id number]) Reviewed by Yaniv Rowell M.D. ([id number]) [place] Free, Serum 3.30 - 19.40 mg/L 37.0 (H) 39.7 (H) 44.6 (H) 23.9 (H) 30.8 (H) Lambda Free, Serum 5.7 - 26.3 mg/L 9.2 10.1 24.1 14.8 16.6 K/L Ratio, Serum 0.26 - 1.65 4.02 (H) 3.93 (H) 1.85 (H) 1.61 1.86 (H) PATHOLOGY: BONE MARROW, ASPIRATE SMEARS, CORE BIOPSY, AND CLOT SECTION, WITH PERIPHERAL BLOOD SMEAR (A-C): - PLASMA CELL MYELOMA, KAPPA-MONOTYPIC (30% OF CELLULARITY). - NORMOCELLULAR MARROW (40%) WITH TRILINEAGE HEMATOPOIESIS. - NORMOCYTIC ANEMIA AND THROMBOCYTOPENIA. - DECREASED STORAGE IRON. - SEE COMMENT. ? ? ? COMMENT: The patient was recently found to have an IgG kappa paraprotein. Correlation with results of pending conventional cytogenetic analysis and fluorescence in situ hybridization studies is recommended. PERIPHERAL BLOOD: CBC ?(08/21/2016): ?WBC ? 6.44 ; ? Hgb ? 8.9 ; ? MCV ? 90.4 ; ? RDW ? 17.7 ; ? Plts ?119. Differential (%): ? ? ?Segs ? 56 ; ? Lymphs ? 40 ;?? Monos ? 4 ; ? Eos ? 0 ; ? Baso ?0. Morphology/Interpretation: ?Normocytic anemia with rouleaux formation. Thrombocytopenia. Red blood cell anisocytosis. BONE MARROW ASPIRATE: ? ?Normal % ? ?(0-2) ? ? 0 % ? Blasts ? ?(1-5) ? ? 0 % ? Promyelo ? ?(32-72) ?43 % ? Myelos/Metas/Bands/Segs ? ?(1-6) ? ? 1 % ? Eosinophils ? ?(0-1) ? ? 0 % ? Basophils ? ?(0-4) ? ? 1 % ? Monocytes ? ?(13-37) ?18 % ? Erythroid precursors ? ?(7-23) ? 15 % ? Lymphocytes ? ?(0-2) ? ?22 % ? Plasma cells ASSESSMENT/PLAN: (C90.00) Multiple myeloma not having achieved remission (HCC) (primary encounter diagnosis) (D75.9) Hyperviscosity Assessment: -IgG kappa multiple myeloma. -Symptomatic anemia presentation requiring transfusion. -He also had significantly elevated serum protein with some symptoms of hyperviscosity including epistaxis and previous GI bleeding. -Improved neuropathy off Velcade. -Serum protein continues to incrementally decline with use of Rd alone. > 50% drop since July. Plan: -Off bortezomib. -Hold next cycle due to below. Consider restarting lenalidomide with cycle #5 beginning Tuesday 11/21 pending results of CBC. -Continue dexamethasone 20 mg once a week x3 weeks with day 1, 8 and 15 of lenalidomide. Supportive care: Hematology: Friday decrease in hemoglobin since last measured. History above of rectal bleeding and occasional hematuria most likely contributing. I asked his to hold off on starting his current cycle of Revlimid and dexamethasone which typically would start today until next week when we have a chance to review his CBC for potential transfusion. Also referral to Dr. Spencer for evaluation of rectal bleeding. Renal: Normal creatinine at baseline--clinically no evidence for renal dysfunction. Infectious diseases: Continue prophylactic acyclovir. Musculoskeletal: Has h/o MS pain including chronic low back pain from injury at [employer] and left knee pain--stable. Bisphoshonates: No obvious lytic lesions at baseline evaluation and baseline DEXA showed normal bone density. This is in keeping with the [facility] care-path guidelines to hold on bisphosphonate therapy. Venous thromboembolism risk: He continues on low dose ASA and Plavix. He will continue these medications for now, but may have to hold if has significant source of GI bleeding. control counseling: Neurology: Baseline neuropathy improved. (E11.51) Type 2 diabetes mellitus with diabetic peripheral angiopathy without gangrene, unspecified rat exterminator insulin use status ([facility]) (I73.9) PAD (peripheral artery disease) ([facility]) -He will continue follow-up with his PCP for these issues. Robel Madden DO Referring Provider: ROBEL MADDEN [[id number]] Allergies As of Date: 11/14/2017 (No Known Allergies) Date Reviewed: 11/14/2017 Reviewed by: Luiza Hirsch, RN, RN - Fully Assessed Reason for Visit: Established Patient [[id number]] Primary Visit Diagnosis:Multiple myeloma not having achieved remission ([facility]) [C90.00] Other Visit Diagnosis: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 chemotherapy [D64.81, T45.1X5A] Follow-up and Disposition History Recorded Prescriptions as of 11/14/2017 Sig: LENALIDOMIDE 15 MG CAPSULE Take 1 capsule by mouth once * TRIAMCINOLONE ACETONIDE 0.025* Apply 1 application to affect* OXYBUTYNIN CHLORIDE ER 10 MG * Take 10 mg by mouth once juan miguel* DEXAMETHASONE 4 MG TABLET Take 5 tablets by mouth once * NYSTATIN 100,000 UNIT/ML ORAL* Take 5 mL by mouth four times* ACYCLOVIR 400 MG TABLET TAKE ONE TABLET BY MOUTH TWIC* CLOPIDOGREL 75 MG TABLET Take 75 mg by mouth once juan miguel* PANTOPRAZOLE 40 MG TABLET,DEL* Take 40 mg by mouth once juan miguel* DULCOLAX (BISACODYL) ORAL Take 1 tablet by mouth as nee* ONDANSETRON HCL 8 MG TABLET TAKE ONE TABLET BY MOUTH EVER* SENNOSIDES 8.6 MG-DOCUSATE SO* Take 1 tablet by mouth once d* VITAMINS AND MINERALS ORAL Take by mouth once daily. FUROSEMIDE 20 MG TABLET Take 20 mg by mouth once juan miguel* GLUCOTROL XL 10 MG TABLET,EXT* 10 mg once daily. HYDROCODONE 10 MG-ACETAMINOPH* Take 1 tablet by mouth every * TAMSULOSIN 0.4 MG CAPSULE Take 0.4 mg by mouth once donna* VYTORIN 10 MG-80 MG TABLET daily at bedtime. * AMLODIPINE 10 MG-BENAZEPRIL 2* Take one(1) tablet daily. * PIOGLITAZONE 45 MG TABLET Take one(1) tablet daily. * VALSARTAN 320 MG-HYDROCHLOROT* Take one(1) tablet daily. * ASPIRIN 81 MG CHEWABLE TABLET Take one(1) tablet daily. * GABAPENTIN 100 MG CAPSULE Take one(1) tablet 2-3 times * OXYBUTYNIN CHLORIDE ER 5 MG T* Take 5 mg by mouth once daily* Problem List As Of Date 11/14/2017 Noted Resolved Hypertension [I10] INVALID FOR* Hypercholesteremia [E78.00] INVALID FOR* PAD (peripheral artery disease) [I73.9] INVALID FOR* Nevus [D22.9] INVALID FOR*09/06/2016 Multiple myeloma not having achieved remission *INVALID FOR* 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 FOR* 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 chemotherapy [D64.*INVALID FOR* Encounter Status:Closed by ROBEL MADDEN DO on 11/14/17 PROSTATE BIOPSY Observed: 10/20/2017 Status: F Source: [place] 4:30 PM [facility] [place] Patient: GLENDY FLORES Jr. : 1940 (77/M) Acct Num: [id number] Phys: Bridger GATES,Jordy Bishop Unit Num: [id number] Loc: LABSPEC Specimen: [id number] Received: 10/20/17 4612 Spec Type: PROST BX TISSUES TISSUES: A. PROSTATE RIGHT B. PROSTATE RIGHT C. PROSTATE RIGHT D. PROSTATE LEFT E. PROSTATE LEFT F. PROSTATE LEFT COMMENT E AND F. Immunohistochemistry ([id number]) supports the above diagnosis. Case has been reviewed in consultation with Dr. Mcdermott who concurs with the above diagnosis. IDC:AM GROSS DESCRIPTION A - Received is one container designated prostate, right apex. The specimen consists of three elongated fragments of light mcfadden-white soft tissue measuring 0.5 to 1.2 cm in length and 0.1 cm in diameter. The specimen is totally submitted in one cassette. B - Received is one container designated prostate, right mid. The specimen consists of three elongated fragments of light mcfadden-white soft tissue each measuring 0.5 cm in length and 0.1 cm in diameter. The specimen is totally submitted in one cassette. C - Received is one container designated prostate, right base. The specimen consists of three elongated fragments of light mcfadden-white soft tissue measuring 0.5 to 1.8 cm in length and 0.1 cm in diameter. The specimen is totally submitted in one cassette. D - Received is one container designated prostate, left apex. The specimen consists of one elongated fragment of light mcfadden-white soft tissue measuring 1.5 cm in length and 0.1 cm in diameter. A fragment of stone is also noted measuring <0.1 cm in greatest dimension. The specimen is totally submitted in one cassette. E - Received is one container designated prostate, left mid. The specimen consists of two elongated fragments of light mcfadden-white soft tissue measuring 1.2 and 1.7 cm in length and 0.1 cm in diameter. The specimen is totally submitted in one cassette. F - Received is one container designated prostate, left base. The specimen consists of two elongated fragments of light mcfadden-white soft tissue measuring 1 and 1.5 cm in length and 0.1 cm in diameter. The specimen is totally submitted in one cassette. / JOSE MIGUEL:ruddy 10/21/17 TC:5 CPT: 82638 x6 HEADER .OPERATION: Prostate biopsy PRE-OP DIAGNOSIS: Elevated PSA TISSUE SUBMITTED: A - Right apex, B - Right mid, C - Right base, D - Left apex, E - Left mid, F - Left base MICROSCOPIC DESCRIPTION Slides are reviewed. MICROSCOPIC DIAGNOSIS A. Right prostate, apex, core biopsy: Prostatic tissue, negative for malignancy. B. Right prostate, mid, core biopsy: Prostatic tissue, negative for malignancy. C. Right prostate, base, core biopsy: Focal high-grade prostatic intraepithelial neoplasia (HGPIN). D. Left prostate, apex, core biopsy: Focal high-grade prostatic intraepithelial neoplasia (HGPIN). E. Left prostate, mid, core biopsy: Prostatic tissue, negative for malignancy. Focal mild acute and chronic inflammation. See comment. F. Left prostate, base, core biopsy: Focal high-grade prostatic intraepithelial neoplasia (HGPIN). Focal atrophy. See comment. SJ:ruddy 10/22/17 Signed Romel Servin 10/23/17 <signature on file> Performed By: #### PPROSBIL #### [facility] [facility], [address] IMMUNOHISTOCHEMISTRY Observed: 10/20/2017 Status: F Source: [place] 12:00 AM [facility] Patient: GLENDY FLORES Jr. : 1940 (77/M) Acct Num: [id number] Phys: Bridger GATES,Jordy Bishop Unit Num: [id number] Loc: LABSPEC Specimen: [id number] Received: 10/22/17 - 1234 Spec Type: IMMUNO TISSUES TISSUES: E. PROSTATE LEFT F. PROSTATE LEFT SPECIMEN INFORMATION: Tissue Source: E - Left prostate, mid, core biopsy, F - Left prostate, base, core biopsy Clinical Info: Elevated PSA Specimen Number: [id number] E AND F CPT code: 01220, 77437 x3 METHODOLOGY: Deparaffinized sections of prefer/formalin-fixed tissue or PAP/DQ stained slides are incubated with monoclonal/polyclonal antibodies/oligonucleotide probes. Localization is made via biotin free immunoperoxidase method. Appropriate controls are performed and reacted as expected. Results on target cell population are indicated in the following table: RESULTS: ANTIBODY / CLONE RESULT Block E P40 (BC28) positive 34BE12 (34BE12) positive Block F P40 (BC28) positive 34BE12 (34BE12) positive These tests were developed and their performance characteristics determined by [facility]. They may not have been cleared or approved by the U.S. Food and Drug Administration. The FDA has determined that such clearance or approval is not necessary. INTERPRETATION: E. Left prostate, mid, core biopsy: Negative for carcinoma. F. Left prostate, base, core biopsy: Consistent with high- grade prostatic intraepithelial neoplasia (HGPIN). SJ:ruddy 10/23/17 [facility] [address] [address] Signed Romel Servin 10/23/17 <signature on file> Performed By: #### PIMM #### [facility] [place], [address] CNOVSP Observed: 10/16/2017 Status: COMPLETED Source: [place] 4:00 PM [facility] REPOSITORY Visit (SP) Office (HEMAWS) GLENDY FLORES JR. ([id number]) 1940 M Date Time Provider Department 10/16/17 4:00 PM ROBEL MADDEN During your visit today, we recorded the following information about you: Temperature Pulse Blood pressure Weight 98.1 degrees 68/minute 126/54 81.4 kg Holly Patel LPN, LPN 10/16/2017 3:53 PM Signed Est pt., discuss recent lab result MADISON Garcia DO 10/16/2017 4:09 PM Signed Diagnosis: 1) Multiple myeloma. Baseline assessment on initial diagnosis: IMWG criteria, [place] Journal of Haematology 121: 749?57, 2002, update in: Júnior et al. Leukemia 20: 1467-73, 2006 and at W meeting Jaye 2010 ? Symptomatic multiple myeloma: IgG kappa. ? Related Organ or Tissue Involvement (CRAB) or other Myeloma Defining Event (MDE): Anemia requiring transfusion. Otherwise, baseline bone survey 09/04/2016 revealed no lytic lesions. Baseline serum calcium, ionized value 1.2 mmol per liter. Baseline serum creatinine 1.2 mg/dL. ? Antecedent plasma cell dyscrasia: None known. ? Myeloma FISH panel: 13q14 (RB1): ? ? 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 ?Normal pattern 14q32 (IGH): ? ? 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 The translocation partner cannot be identified. These corresponds to standard risk disease. ? Cytogenetics: Pending. ? LDH: 210 (135-225 U/L) ? ISS stage: B2M not drawn. ? [place] Stage: III (anemia with Hgb < 8.5 g/dL) ? Monoclonal proteins at diagnosis: Serum M-spike: 7.5 gm/dL, Involved serum free light chains: tjtuw=1174.0 mg/L, Uninvolved serum free light chains: lambda= 5.8 mg/L. ? Bone marrow plasma cell infiltration: 22%. HPI: The patient is a 77 yo male with PMH significant for CAD, PVD, HTN and DM2. The patient had a CBC done on 01/23/2016. At that time the white count was 6300. Hemoglobin was 10.6 g/dL and the platelet count 179,000. Chemistries at that time included a basic metabolic profile that showed a creatinine of 1.0 mg/dL. Patient had repeat CBC on 07/12/2016. The hemoglobin was noted to be 8.7 g/dL. The total white count was 6600. The differential was unremarkable. Platelet count 134,000. Chemistries were remarkable for a total serum protein at 14 g/dL. Albumin was 3.4 g/dL. Globulin fraction was not able to be determined. The remainder the chemistries were unremarkable and specifically the serum creatinine was 0.9. CBC was repeated on 07/22/2016 the hemoglobin was 8.5 g/dL. Again the total white count differential were normal. Platelet count 135,000 serum protein 14.1 g/dL. Globulin fraction was noted to be outside the reportable range. He was admitted to [facility] the first week of August. He had significant anemia and received a 2 unit red blood cell transfusion. He underwent EGD and colonoscopy. 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 Most significantly he had been having epistaxis in the few weeks prior to presentaton. This required packing. He also underwent a cauterization sometime in the last week or so but had significant right-sided epistaxis before coming in today. He is not on anticoagulation. He denies other bleeding problems. Previous therapy: 1) VCd x8 cycles. 2) Vd x2 cycles. 3) RVd x1 cycle--started lenalidomide 07/25/2017. Current therapy: 1) Rd. Presents for ongoing hematologic management. Interim history: He continues to do well with Revlimid and dexamethasone alone. He feels that his neuropathic pain has been improving very gradually by slow degrees. There are times when he can walk without his cane. He's had a couple falls at home but hasn't sustained any injuries. His appetite is normal he's had no acute illnesses since last year month ago. Specifically no episodes of fever, chills or night sweats. No unusual bleeding or easy bruising. His brought to my attention he's had a couple skin lesions that have appeared in the last few weeks. They are not painful nor itchy. Lesions are scattered on trunk and arms and legs. PMH, medications and allergies as below personally reviewed by me today. Any changes documented in appropriate section. ROS: Constitutional: See above. Neuro: See above. HEENT: No recent change in voice, vision or hearing. Resp: No cough or sputum production. No wheeze. No shortness of breath at rest. CVS: Denies PND and orthopnea. He has chronic mild swelling/pitting edema of both legs worse on the left secondary to previous vein harvest for bypass surgery--stable. GI: Denies symptoms of stomatitis. Denies dysphagia and odynophagia. Denies abdominal pain. He has chronic constipation and occasionally takes stool softeners to help his bowels move. He doesn't take them consistently. : Denies dysuria or gross hematuria. No symptoms of bladder outlet obstruction. Endo: Denies hot flashes. Denies polyuria and polydipsia. Denies heat and cold intolerance. Musculoskeletal: Denies bone, joint and muscular pain. Stable lower back pain. Derm: Denies rash. Denies jaundice and diffuse pruritis. Heme: See above. Psych: Normal mood. PHYSICAL EXAM: Vitals: Blood pressure 126/54, pulse 68, temperature 36.7 ?C (98.1 ?F), weight 81.4 kg (179 lb 8 oz). Well-appearing and in no acute distress. EYES: Sclerae are anicteric bilaterally. NECK: Supple. LYMPHATIC: There is no palpable cervical, supraclavicular denopathy. RESPIRATORY: Inspiratory breath sounds are of normal intensity in all thakur. No rales, wheezes or rhonchi. CARDIOVASCULAR: Rhythm is regular. Normal intensity S1/S2. ABDOMEN: The abdomen is nondistended. No organomegaly. No tenderness. Extremities: Mild swelling with trace edema of distal LEs. SKIN: No rash. No petechiae. NEUROLOGIC: ore trimmer II-XII are grossly intact. No focal motor weakness--symmetric diffuse weakness of the legs. MUSCULOSKELETAL: No muscle wasting. PATHOLOGY: BONE MARROW, ASPIRATE SMEARS, CORE BIOPSY, AND CLOT SECTION, WITH PERIPHERAL BLOOD SMEAR (A-C): - PLASMA CELL MYELOMA, KAPPA-MONOTYPIC (30% OF CELLULARITY). - NORMOCELLULAR MARROW (40%) WITH TRILINEAGE HEMATOPOIESIS. - NORMOCYTIC ANEMIA AND THROMBOCYTOPENIA. - DECREASED STORAGE IRON. - SEE COMMENT. ? ? ? COMMENT: The patient was recently found to have an IgG kappa paraprotein. Correlation with results of pending conventional cytogenetic analysis and fluorescence in situ hybridization studies is recommended. PERIPHERAL BLOOD: CBC ?(08/21/2016): ?WBC ? 6.44 ; ? Hgb ? 8.9 ; ? MCV ? 90.4 ; ? RDW ? 17.7 ; ? Plts ?119. Differential (%): ? ? ?Segs ? 56 ; ? Lymphs ? 40 ;?? Monos ? 4 ; ? Eos ? 0 ; ? Baso ?0. Morphology/Interpretation: ?Normocytic anemia with rouleaux formation. Thrombocytopenia. Red blood cell anisocytosis. BONE MARROW ASPIRATE: ? ?Normal % ? ?(0-2) ? ? 0 % ? Blasts ? ?(1-5) ? ? 0 % ? Promyelo ? ?(32-72) ?43 % ? Myelos/Metas/Bands/Segs ? ?(1-6) ? ? 1 % ? Eosinophils ? ?(0-1) ? ? 0 % ? Basophils ? ?(0-4) ? ? 1 % ? Monocytes ? ?(13-37) ?18 % ? Erythroid precursors ? ?(7-23) ? 15 % ? Lymphocytes ? ?(0-2) ? ?22 % ? Plasma cells ASSESSMENT/PLAN: (C90.00) Multiple myeloma not having achieved remission (HCC) (primary encounter diagnosis) (D75.9) Hyperviscosity Assessment: -IgG kappa multiple myeloma. -Symptomatic anemia presentation requiring transfusion. -He also had significantly elevated serum protein with some symptoms of hyperviscosity including epistaxis and previous GI bleeding. -Improved neuropathy off Velcade. -Serum protein continues to decline with use of Rd alone. 50% drop since July. Plan: -Continue to hold bortezomib. -Continue lenalidomide with cycle #4 beginning Tuesday 10/17. -Continue dexamethasone 20 mg once a week x3 weeks with day 1, 8 and 15 of lenalidomide. Supportive care: Hematology: Anemia stable. Likely secondary to Revlimid. Continue to monitor CBC and provide transfusional support as indicated--hasn't required transfusional support since initiating treatment for the myeloma. Renal: Normal creatinine at baseline--clinically no evidence for renal dysfunction. Infectious diseases: Continue prophylactic acyclovir. Musculoskeletal: Has h/o MS pain including chronic low back pain from injury at [employer] and left knee pain--stable. Bisphoshonates: No obvious lytic lesions at baseline evaluation and baseline DEXA showed normal bone density. This is in keeping with the [facility] care-path guidelines to hold on bisphosphonate therapy. Venous thromboembolism risk: He continues on low dose ASA and Plavix. He will continue these medications. control counseling: Neurology: Baseline neuropathy improved. (E11.51) Type 2 diabetes mellitus with diabetic peripheral angiopathy without gangrene, unspecified rat exterminator insulin use status (HCC) (I73.9) PAD (peripheral artery disease) ([facility]) -He will continue follow-up with his PCP for these issues. Robel Madden DO Referring Provider: ROBEL MADDEN [[id number]] Allergies As of Date: 10/16/2017 (No Known Allergies) Date Reviewed: 10/16/2017 Reviewed by: Holly Fish (Director Index) MADISON Patel - Fully Assessed Reason for Visit: Established Patient [[id number]] Primary Visit Diagnosis:Multiple myeloma not having achieved remission ([facility]) [C90.00] Order(s):triamcinolone (KENALOG) 0.025 % creamApply 1 application to affected area twice daily.Disp: 30 gRfl: 5 Follow-up and Disposition History Recorded Prescriptions as of 10/16/2017 Sig: LENALIDOMIDE 15 MG CAPSULE Take 1 capsule by mouth once * OXYBUTYNIN CHLORIDE ER 10 MG * Take 10 mg by mouth once juan miguel* DEXAMETHASONE 4 MG TABLET Take 5 tablets by mouth once * NYSTATIN 100,000 UNIT/ML ORAL* Take 5 mL by mouth four times* ACYCLOVIR 400 MG TABLET TAKE ONE TABLET BY MOUTH TWIC* CLOPIDOGREL 75 MG TABLET Take 75 mg by mouth once juan miguel* PANTOPRAZOLE 40 MG TABLET,DEL* Take 40 mg by mouth once juan miguel* DULCOLAX (BISACODYL) ORAL Take 1 tablet by mouth as nee* ONDANSETRON HCL 8 MG TABLET TAKE ONE TABLET BY MOUTH EVER* SENNOSIDES 8.6 MG-DOCUSATE SO* Take 1 tablet by mouth once d* VITAMINS AND MINERALS ORAL Take by mouth once daily. FUROSEMIDE 20 MG TABLET Take 20 mg by mouth once juan miguel* GLUCOTROL XL 10 MG TABLET,EXT* 10 mg once daily. HYDROCODONE 10 MG-ACETAMINOPH* Take 1 tablet by mouth every * TAMSULOSIN 0.4 MG CAPSULE Take 0.4 mg by mouth once donna* VYTORIN 10 MG-80 MG TABLET daily at bedtime. * AMLODIPINE 10 MG-BENAZEPRIL 2* Take one(1) tablet daily. * VALSARTAN 320 MG-HYDROCHLOROT* Take one(1) tablet daily. * ASPIRIN 81 MG CHEWABLE TABLET Take one(1) tablet daily. * GABAPENTIN 100 MG CAPSULE Take one(1) tablet 2-3 times * TRIAMCINOLONE ACETONIDE 0.025* Apply 1 application to affect* OXYBUTYNIN CHLORIDE ER 5 MG T* Take 5 mg by mouth once daily* * PIOGLITAZONE 45 MG TABLET Take one(1) tablet daily. Medication notes this encounter OXYBUTYNIN CHLORIDE ER 5 MG TABLET,EXTENDED RELEASE 24 HR >> Holly Patel LPN, LPN 10/16/2017 3:27 PM >> HOLLY PATEL [facility] Oct 16, 2017 3:27 PM discontinue Problem List As Of Date 10/16/2017 Noted Resolved Hypertension [I10] INVALID FOR* Hypercholesteremia [E78.00] INVALID FOR* PAD (peripheral artery disease) [I73.9] INVALID FOR* Nevus [D22.9] INVALID FOR*09/06/2016 Multiple myeloma not having achieved remission *INVALID FOR* 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 FOR* Visit Notes: >> Holly Fish (Madison) MADISON Patel [facility] Oct 16, 2017 3:27 PM Status: Signed Est pt., discuss recent lab result Holly Patel LPN Encounter Status:Closed by ROBEL MADDEN DO on 10/16/17 PROGRESS Observed: 10/16/2017 Status: COMPLETED Source: [place] 3:45 PM [facility] REPOSITORY O ID: [id number] Author: Robel Madden Service: (none) Author Type: Physician Type: Progress Notes Filed: 10/16/2017 4:09 PM Note Text: Diagnosis: 1) Multiple myeloma. Baseline assessment on initial diagnosis: IMWG criteria, [place] Journal of Haematology 121: 749?57, 2003, update in: Rosemaryie et al. Leukemia 20: 1467-73, 2006 and at IMW meeting Jaye 2010 ? Symptomatic multiple myeloma: IgG kappa. ? Related Organ or Tissue Involvement (CRAB) or other Myeloma Defining Event (MDE): Anemia requiring transfusion. Otherwise, baseline bone survey 09/04/2016 revealed no lytic lesions. Baseline serum calcium, ionized value 1.2 mmol per liter. Baseline serum creatinine 1.2 mg/dL. ? Antecedent plasma cell dyscrasia: None known. ? Myeloma FISH panel: 13q14 (RB1): ? ? 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 ?Normal pattern 14q32 (IGH): ? ? 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 The translocation partner cannot be identified. These corresponds to standard risk disease. ? Cytogenetics: Pending. ? LDH: 210 (135-225 U/L) ? ISS stage: B2M not drawn. ? [place] Stage: III (anemia with Hgb < 8.5 g/dL) ? Monoclonal proteins at diagnosis: Serum M-spike: 7.5 gm/dL, Involved serum free light chains: ezmpm=1605.0 mg/L, Uninvolved serum free light chains: lambda= 5.8 mg/L. ? Bone marrow plasma cell infiltration: 22%. HPI: The patient is a 77 yo male with PMH significant for CAD, PVD, HTN and DM2. The patient had a CBC done on 01/23/2016. At that time the white count was 6300. Hemoglobin was 10.6 g/dL and the platelet count 179,000. Chemistries at that time included a basic metabolic profile that showed a creatinine of 1.0 mg/dL. Patient had repeat CBC on 07/12/2016. The hemoglobin was noted to be 8.7 g/dL. The total white count was 6600. The differential was unremarkable. Platelet count 134,000. Chemistries were remarkable for a total serum protein at 14 g/dL. Albumin was 3.4 g/dL. Globulin fraction was not able to be determined. The remainder the chemistries were unremarkable and specifically the serum creatinine was 0.9. CBC was repeated on 07/22/2016 the hemoglobin was 8.5 g/dL. Again the total white count differential were normal. Platelet count 135,000 serum protein 14.1 g/dL. Globulin fraction was noted to be outside the reportable range. He was admitted to [facility] the first week of August. He had significant anemia and received a 2 unit red blood cell transfusion. He underwent EGD and colonoscopy. 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 Most significantly he had been having epistaxis in the few weeks prior to presentaton. This required packing. He also underwent a cauterization sometime in the last week or so but had significant right- sided epistaxis before coming in today. He is not on anticoagulation. He denies other bleeding problems. Previous therapy: 1) VCd x8 cycles. 2) Vd x2 cycles. 3) RVd x1 cycle--started lenalidomide 07/25/2017. Current therapy: 1) Rd. Presents for ongoing hematologic management. Interim history: He continues to do well with Revlimid and dexamethasone alone. He feels that his neuropathic pain has been improving very gradually by slow degrees. There are times when he can walk without his cane. He's had a couple falls at home but hasn't sustained any injuries. His appetite is normal he's had no acute illnesses since last year month ago. Specifically no episodes of fever, chills or night sweats. No unusual bleeding or easy bruising. His brought to my attention he's had a couple skin lesions that have appeared in the last few weeks. They are not painful nor itchy. Lesions are scattered on trunk and arms and legs. PMH, medications and allergies as below personally reviewed by me today. Any changes documented in appropriate section. ROS: Constitutional: See above. Neuro: See above. HEENT: No recent change in voice, vision or hearing. Resp: No cough or sputum production. No wheeze. No shortness of breath at rest. CVS: Denies PND and orthopnea. He has chronic mild swelling/pitting edema of both legs worse on the left secondary to previous vein harvest for bypass surgery--stable. GI: Denies symptoms of stomatitis. Denies dysphagia and odynophagia. Denies abdominal pain. He has chronic constipation and occasionally takes stool softeners to help his bowels move. He doesn't take them consistently. : Denies dysuria or gross hematuria. No symptoms of bladder outlet obstruction. Endo: Denies hot flashes. Denies polyuria and polydipsia. Denies heat and cold intolerance. Musculoskeletal: Denies bone, joint and muscular pain. Stable lower back pain. Derm: Denies rash. Denies jaundice and diffuse pruritis. Heme: See above. Psych: Normal mood. PHYSICAL EXAM: Vitals: Blood pressure 126/54, pulse 68, temperature 36.7 ?C (98.1 ?F), weight 81.4 kg (179 lb 8 oz). Well-appearing and in no acute distress. EYES: Sclerae are anicteric bilaterally. NECK: Supple. LYMPHATIC: There is no palpable cervical, supraclavicular denopathy. RESPIRATORY: Inspiratory breath sounds are of normal intensity in all thakur. No rales, wheezes or rhonchi. CARDIOVASCULAR: Rhythm is regular. Normal intensity S1/S2. ABDOMEN: The abdomen is nondistended. No organomegaly. No tenderness. Extremities: Mild swelling with trace edema of distal LEs. SKIN: No rash. No petechiae. NEUROLOGIC: ore trimmer II-XII are grossly intact. No focal motor weakness--symmetric diffuse weakness of the legs. MUSCULOSKELETAL: No muscle wasting. PATHOLOGY: BONE MARROW, ASPIRATE SMEARS, CORE BIOPSY, AND CLOT SECTION, WITH PERIPHERAL BLOOD SMEAR (A-C): - PLASMA CELL MYELOMA, KAPPA-MONOTYPIC (30% OF CELLULARITY). - NORMOCELLULAR MARROW (40%) WITH TRILINEAGE HEMATOPOIESIS. - NORMOCYTIC ANEMIA AND THROMBOCYTOPENIA. - DECREASED STORAGE IRON. - SEE COMMENT. ? ? ? COMMENT: The patient was recently found to have an IgG kappa paraprotein. Correlation with results of pending conventional cytogenetic analysis and fluorescence in situ hybridization studies is recommended. PERIPHERAL BLOOD: CBC ?(08/21/2016): ?WBC ? 6.44 ; ? Hgb ? 8.9 ; ? MCV ? 90.4 ; ? RDW ? 17.7 ; ? Plts ?119. Differential (%): ? ? ?Segs ? 56 ; ? Lymphs ? 40 ;?? Monos ? 4 ; ? Eos ? 0 ; ? Baso ?0. Morphology/Interpretation: ?Normocytic anemia with rouleaux formation. Thrombocytopenia. Red blood cell anisocytosis. BONE MARROW ASPIRATE: ? ?Normal % ? ?(0-2) ? ? 0 % ? Blasts ? ?(1-5) ? ? 0 % ? Promyelo ? ?(32-72) ?43 % ? Myelos/Metas/Bands/Segs ? ?(1-6) ? ? 1 % ? Eosinophils ? ?(0-1) ? ? 0 % ? Basophils ? ?(0-4) ? ? 1 % ? Monocytes ? ?(13-37) ?18 % ? Erythroid precursors ? ?(7-23) ? 15 % ? Lymphocytes ? ?(0-2) ? ?22 % ? Plasma cells ASSESSMENT/PLAN: (C90.00) Multiple myeloma not having achieved remission ([facility]) (primary encounter diagnosis) (D75.9) Hyperviscosity Assessment: -IgG kappa multiple myeloma. -Symptomatic anemia presentation requiring transfusion. -He also had significantly elevated serum protein with some symptoms of hyperviscosity including epistaxis and previous GI bleeding. -Improved neuropathy off Velcade. -Serum protein continues to decline with use of Rd alone. 50% drop since July. Plan: -Continue to hold bortezomib. -Continue lenalidomide with cycle #4 beginning Tuesday 10/17. -Continue dexamethasone 20 mg once a week x3 weeks with day 1, 8 and 15 of lenalidomide. Supportive care: Hematology: Anemia stable. Likely secondary to Revlimid. Continue to monitor CBC and provide transfusional support as indicated--hasn't required transfusional support since initiating treatment for the myeloma. Renal: Normal creatinine at baseline--clinically no evidence for renal dysfunction. Infectious diseases: Continue prophylactic acyclovir. Musculoskeletal: Has h/o MS pain including chronic low back pain from injury at [employer] and left knee pain--stable. Bisphoshonates: No obvious lytic lesions at baseline evaluation and baseline DEXA showed normal bone density. This is in keeping with the [facility] care-path guidelines to hold on bisphosphonate therapy. Venous thromboembolism risk: He continues on low dose ASA and Plavix. He will continue these medications. control counseling: Neurology: Baseline neuropathy improved. (E11.51) Type 2 diabetes mellitus with diabetic peripheral angiopathy without gangrene, unspecified rat exterminator insulin use status ([facility]) (I73.9) PAD (peripheral artery disease) ([facility]) -He will continue follow-up with his PCP for these issues. Robel Madden, HEPATIC FUNCTN PANEL Collected: 10/16/2017 Status: F Source: [place] 3:33 PM [facility] REPOSITORY TYPE CODE TESTS RESULT OUT OF REFERENCE UNITS RANGE LAB ALB 3.9-4.9 g/dL Albumin 3.9 LAB TBIL 0.2-1.3 mg/dL Bilirubin, Total 0.2 LAB CBIL <0.2 mg/dL Bilirubin,Conjuga <0.2 josé LAB ALKP 36-108 U/L Alkaline Phosphatase 73 LAB AST 14-40 U/L AST 23 LAB ALT 10-54 U/L ALT 19 LAB TP 6.3-8.0 g/dL Protein, Total 6.9 Performed By: #### HFP, B2M, SEPG, KLFRS, MPASRM #### [facility] [address] [address] B2 MICROGLOBULIN Collected: 10/16/2017 Status: F Source: [place] 3:33 PM [facility] REPOSITORY TYPE CODE TESTS RESULT OUT OF REFERENCE UNITS RANGE LAB B2M 0.8-2.2 mg/L B2 Microglobulin High 2.7 Performed By: #### HFP, B2M, SEPG, KLFRS, MPASRM #### [facility] [address] [address] PROTEIN ELECTROPHOR. Collected: 10/16/2017 Status: F Source: [place] 3:33 PM [facility] REPOSITORY TYPE CODE TESTS RESULT OUT OF REFERENCE UNITS RANGE LAB TPSPE 6.0-8.4 g/dL Total Protein, SPE 6.3 LAB ALBE 3.37-4.23 gm/dL Albumin Low 3.32 LAB A1GL 0.18-0.31 gm/dL Alpha 1 Globulin 0.30 LAB A2GL 0.52-0.97 gm/dL Alpha 2 Globulin 0.94 LAB BEGL 0.84-1.36 gm/dL Beta Globulin 0.92 LAB GAGL 0.70-1.44 gm/dL Gamma Globulin 0.82 LAB SPEINT Interpretation SEE COMMENT Result Comment: An M protein is identified on protein electrophoresis. See separate immunofixation report for characterization of the M protein. LAB LOC M Protein Gamma Location fraction LAB GPERDL 0.00 gm/dL M Cesar 0.23 High Concentratn LAB SPESTF SPE Staff Review Reviewed by Yaniv Rowell M.D. ([id number]) Performed By: #### HFP, B2M, SEPG, KLFRS, MPASRM #### [facility] [address] [place], [place] [address] KAPPA/MILLER,FREE,SER Collected: Status: F Source: [place] 10/16/2017 3:33 PM [facility] REPOSITORY TYPE CODE TESTS RESULT OUT OF REFERENCE UNITS RANGE LAB FKAPS 3.30-19.40 mg/L High [place], 30.8 Free, Serum Result Comment: Rarely, increased serum free light chains values may not be detected due to antigen excess phenomenon. Results should always be correlated with other laboratory results and clinical findings. LAB FLAMS 5.7-26.3 mg/L Lambda, Free, 16.6 Serum Result Comment: Rarely, increased serum free light chains values may not be detected due to antigen excess phenomenon. Results should always be correlated with other laboratory results and clinical findings. LAB KLRAT 0.26-1.65 High K/L Ratio, 1.86 Serum Performed By: #### HFP, B2M, SEPG, KLFRS, MPASRM #### [facility] [address] [address] MONOCLONL PROTEIN,BL Collected: 10/16/2017 Status: F Source: [place] 3:33 PM [facility] REPOSITORY TYPE CODE TESTS RESULT OUT OF RANGE REFERENCE UNITS LAB MPAIGG 717-1411 mg/dL MPA Serum IgG 832 LAB MPAIGA 78-391 mg/dL MPA Serum IgA 153 LAB MPAIGM 53-334 mg/dL Low MPA Serum IgM 20 LAB MPAK 534-1267 mg/dL Serum [place] 636 LAB MPAL 253-653 mg/dL Serum Lambda 317 LAB MPAKL 1-3 MPA Juan Ramon/Bentley Ratio 2.01 LAB MPAR No M protein is MPA Result Abnormal identified. M protein Alert is present. LAB INTP MPA Interpretation SEE COMMENT Result Comment: Atypical restricted bands are present in the IgG and kappa regions. Consistent with IgG kappa monoclonal gammopathy. LAB MPASTF Staff Reviewed by Review Yaniv Rowell M.D. ([id number]) Performed By: #### HFP, B2M, SEPG, KLFRS, MPASRM #### [facility] [address] [place], [place] [address] DAVID ABS GR + CBC Collected: 10/16/2017 Status: F Source: [place] 3:32 PM [facility] REPOSITORY TYPE CODE TESTS RESULT OUT OF REFERENCE UNITS RANGE LAB WWBC 3.70-11.00 k/uL David WBC 4.76 LAB WRBC 4.20-6.00 m/uL Low David RBC 2.72 LAB WHGB 13.0-17.0 g/dL Low [place] Hemoglobin 8.7 LAB WHCT 39.0-51.0 % Low David Hematocrit 25.9 LAB WMCV 80.0-100.0 fL David MCV 95.2 LAB WMCH 26.0-34.0 pg [place] MCH 32.0 LAB WMCHC 30.5-36.0 g/dL [place] MCHC 33.6 LAB WRDW 11.5-15.0 % [place] High RDW 15.9 LAB WPLT 150-400 k/uL [place] Platelet Cnt 219 LAB WMPV 9.0-12.7 fL [place] MPV 10.0 Result Comment: Test performed at: [facility], [address] [place] [address]. LAB ABGRAN 1.45-7.50 k/uL Absol Gran 2.62 Count DAVID ISTAT BMP Collected: 10/16/2017 Status: F Source: [place] 3:32 PM [facility] REPOSITORY TYPE CODE TESTS RESULT OUT OF REFERENCE UNITS RANGE LAB NAWB 135-146 mmol/L Low Sodium, Whole 134 Bld LAB K1WB 3.5-5.0 mmol/L Potassium,Who 3.6 le Bld LAB CLWB 98-110 mmol/L Chloride, 98 Whole Bld LAB ICAWB 1.08-1.30 mmol/L Ionized 1.11 Calcium, WB Result Comment: Please note: This value represents ionized calcium not total calcium. LAB CO2WB 23-32 mmol/L Low TCO2, Whole 22 Blood LAB GLUWB 65-100 mg/dL High Glucose, 166 Whole Bld LAB BUNWB 10-25 mg/dL BUN, Whole 14 Blood LAB BCRET 0.70-1.40 mg/dL Creatinine,Wh 1.10 ole Bld LAB AGAPWB 0-15 mmol/L Anion Gap, 14 Whole Bld LAB GFRAA eGFR- >60 Amer. LAB GFRNAA . eGFR-All >60 Other Races Result Comment: eGFR (Estimated GFR) Units of measure: mL/min/1.73 meters squared eGFR is derived from the reexpressed MDRD Study equation using the following parameters: serum creatinine, age, gender and race. The creatinine assay has been calibrated to be traceable to IDMS. An eGFR <60 mL/min/1.73m2 for >3 months is consistent with chronic kidney disease. Refer to KDOQI guidelines for clinical interpretation. In patients with unstable renal function, e.g. those with acute kidney injury, the eGFR may not accurately reflect actual GFR. PSA Collected: 09/30/2017 Status: F Source: [employer] 5:16 PM [facility] REPOSITORY TYPE CODE TESTS RESULT OUT OF REFERENCE UNITS RANGE LAB PSA(LOINC) 0.00-4.00 ng/mL High Prostate 22.28 Specific Antigen Result Comment: Above normal(expected)range Performed By: #### PSA #### [address] [address] CNOVSP Observed: 09/18/2017 Status: COMPLETED Source: [place] 4:20 PM [facility] REPOSITORY Visit (SP) Office (ZOIE) GLENDY FLORES JR. ([id number]) 1940 M Date Time Provider Department 09/18/17 4:20 PM ROBEL MADDEN During your visit today, we recorded the following information about you: Temperature Pulse Blood pressure Weight 98.7 degrees 83/minute 111/55 82.8 kg Holly Patel LPN, LPN 09/18/2017 3:47 PM Signed Est pt, discuss recent labs , tx tomorrow MADISON Garcia DO 09/19/2017 8:27 AM Signed Diagnosis: 1) Multiple myeloma. Baseline assessment on initial diagnosis: IMWG criteria, [place] Journal of Haematology 121: 749?57, 2003, update in: Júnior et al. Leukemia 20: 1467-73, 2006 and at IMW meeting Jaye 2010 ? Symptomatic multiple myeloma: IgG kappa. ? Related Organ or Tissue Involvement (CRAB) or other Myeloma Defining Event (MDE): Anemia requiring transfusion. Otherwise, baseline bone survey 09/04/2016 revealed no lytic lesions. Baseline serum calcium, ionized value 1.2 mmol per liter. Baseline serum creatinine 1.2 mg/dL. ? Antecedent plasma cell dyscrasia: None known. ? Myeloma FISH panel: 13q14 (RB1): ? ? 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 ?Normal pattern 14q32 (IGH): ? ? 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 The translocation partner cannot be identified. These corresponds to standard risk disease. ? Cytogenetics: Pending. ? LDH: 210 (135-225 U/L) ? ISS stage: B2M not drawn. ? [place] Durie Stage: III (anemia with Hgb < 8.5 g/dL) ? Monoclonal proteins at diagnosis: Serum M-spike: 7.5 gm/dL, Involved serum free light chains: dzwvk=8359.0 mg/L, Uninvolved serum free light chains: lambda= 5.8 mg/L. ? Bone marrow plasma cell infiltration: 22%. HPI: The patient is a 77 yo male with PMH significant for CAD, PVD, HTN and DM2. The patient had a CBC done on 01/23/2016. At that time the white count was 6300. Hemoglobin was 10.6 g/dL and the platelet count 179,000. Chemistries at that time included a basic metabolic profile that showed a creatinine of 1.0 mg/dL. Patient had repeat CBC on 07/12/2016. The hemoglobin was noted to be 8.7 g/dL. The total white count was 6600. The differential was unremarkable. Platelet count 134,000. Chemistries were remarkable for a total serum protein at 14 g/dL. Albumin was 3.4 g/dL. Globulin fraction was not able to be determined. The remainder the chemistries were unremarkable and specifically the serum creatinine was 0.9. CBC was repeated on 07/22/2016 the hemoglobin was 8.5 g/dL. Again the total white count differential were normal. Platelet count 135,000 serum protein 14.1 g/dL. Globulin fraction was noted to be outside the reportable range. He was admitted to [facility] the first week of August. He had significant anemia and received a 2 unit red blood cell transfusion. He underwent EGD and colonoscopy. 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 Most significantly he had been having epistaxis in the few weeks prior to presentaton. This required packing. He also underwent a cauterization sometime in the last week or so but had significant right-sided epistaxis before coming in today. He is not on anticoagulation. He denies other bleeding problems. Previous therapy: 1) VCd x8 cycles. 2) Vd x2 cycles. 3) RVd x1 cycle--started lenalidomide 07/25/2017. Current therapy: 1) Rd. Presents for ongoing hematologic management. Interim history: Neuropathic pain better since off Velcade. No falls or stumbles. Doesn't need cane. No side effects from Revlimid other than fatigue so he takes it at night and has no problem. No rash. PMH, medications and allergies as below personally reviewed by me today. Any changes documented in appropriate section. ROS: Constitutional: Denies episodes of fever. Normal appetite. Generalized fatigue. Neuro: See above. HEENT: No recent change in voice, vision or hearing. Resp: Cough is considerably less. No wheeze. No shortness of breath at rest. CV no hemoptysis.S: Denies PND and orthopnea. He has chronic mild swelling/pitting edema of both legs worse on the left secondary to previous vein harvest for bypass surgery. GI: Denies symptoms of stomatitis. Denies dysphagia and odynophagia. Denies abdominal pain. : Denies dysuria or gross hematuria. No symptoms of bladder outlet obstruction. Endo: Denies hot flashes. Denies polyuria and polydipsia. Denies heat and cold intolerance. Musculoskeletal: Denies bone, joint and muscular pain. Stable lower back pain. Derm: Denies rash. Denies jaundice and diffuse pruritis. Heme: See above. Psych: Normal mood. PHYSICAL EXAM: Vitals: Blood pressure 111/55, pulse 83, temperature 37.1 ?C (98.7 ?F), weight 82.8 kg (182 lb 8 oz). Well-appearing and in no acute distress. EYES: Sclerae are anicteric bilaterally. NECK: Supple. LYMPHATIC: There is no palpable cervical, supraclavicular denopathy. RESPIRATORY: Inspiratory breath sounds are of normal intensity in all thakur. No rales, wheezes or rhonchi. CARDIOVASCULAR: Rhythm is regular. Normal intensity S1/S2. ABDOMEN: The abdomen is nondistended. No organomegaly. No tenderness. Extremities: Trace edema of distal LEs. SKIN: No rash. No petechiae. NEUROLOGIC: ore trimmer II-XII are grossly intact. No focal motor weakness--symmetric diffuse weakness of the legs. MUSCULOSKELETAL: No muscle wasting. PATHOLOGY: BONE MARROW, ASPIRATE SMEARS, CORE BIOPSY, AND CLOT SECTION, WITH PERIPHERAL BLOOD SMEAR (A-C): - PLASMA CELL MYELOMA, KAPPA-MONOTYPIC (30% OF CELLULARITY). - NORMOCELLULAR MARROW (40%) WITH TRILINEAGE HEMATOPOIESIS. - NORMOCYTIC ANEMIA AND THROMBOCYTOPENIA. - DECREASED STORAGE IRON. - SEE COMMENT. ? ? ? COMMENT: The patient was recently found to have an IgG kappa paraprotein. Correlation with results of pending conventional cytogenetic analysis and fluorescence in situ hybridization studies is recommended. PERIPHERAL BLOOD: CBC ?(08/21/2016): ?WBC ? 6.44 ; ? Hgb ? 8.9 ; ? MCV ? 90.4 ; ? RDW ? 17.7 ; ? Plts ?119. Differential (%): ? ? ?Segs ? 56 ; ? Lymphs ? 40 ;?? Monos ? 4 ; ? Eos ? 0 ; ? Baso ?0. Morphology/Interpretation: ?Normocytic anemia with rouleaux formation. Thrombocytopenia. Red blood cell anisocytosis. BONE MARROW ASPIRATE: ? ?Normal % ? ?(0-2) ? ? 0 % ? Blasts ? ?(1-5) ? ? 0 % ? Promyelo ? ?(32-72) ?43 % ? Myelos/Metas/Bands/Segs ? ?(1-6) ? ? 1 % ? Eosinophils ? ?(0-1) ? ? 0 % ? Basophils ? ?(0-4) ? ? 1 % ? Monocytes ? ?(13-37) ?18 % ? Erythroid precursors ? ?(7-23) ? 15 % ? Lymphocytes ? ?(0-2) ? ?22 % ? Plasma cells ASSESSMENT/PLAN: (C90.00) Multiple myeloma not having achieved remission (HCC) (primary encounter diagnosis) (D75.9) Hyperviscosity Assessment: -IgG kappa multiple myeloma. -Symptomatic anemia presentation requiring transfusion. -He also had significantly elevated serum protein with some symptoms of hyperviscosity including epistaxis and previous GI bleeding. -Improved neuropathy off Velcade. -Serum protein declining with use of Rd alone. Plan: -Continue to hold bortezomi. -Continue lenalidomide with cycle #3 beginning Tuesday 09/19. -Continue dexamethasone 20 mg once a week x3 weeks with day 1, 8 and 15 of lenalidomide. Supportive care: Hematology: Anemia stable. Likely secondary to Revlimid. Continue to monitor CBC and provide transfusional support as indicated--hasn't required transfusional support since initiating treatment for the myeloma. Renal: Normal creatinine at baseline--clinically no evidence for renal dysfunction. Infectious diseases: Continue prophylactic acyclovir. Musculoskeletal: Has h/o MS pain including chronic low back pain from injury at [employer] and left knee pain--stable. Bisphoshonates: No obvious lytic lesions at baseline evaluation and baseline DEXA showed normal bone density. This is in keeping with the [facility] care-path guidelines to hold on bisphosphonate therapy. Venous thromboembolism risk: He continues on low dose ASA and Plavix. He will continue these medications. control counseling: Neurology: Baseline neuropathy improved. (E11.51) Type 2 diabetes mellitus with diabetic peripheral angiopathy without gangrene, unspecified custodial insulin use status (HCC) (I73.9) PAD (peripheral artery disease) ([facility]) -He will continue follow-up with his PCP for these issues. Robel Madden DO Referring Provider: ROBEL MADDEN [[id number]] Allergies As of Date: 09/18/2017 (No Known Allergies) Date Reviewed: 09/18/2017 Reviewed by: Holly Fish (Director Index) MADISON Patel - Fully Assessed Reason for Visit: Established Patient [175] Visit Diagnosis:Multiple myeloma not having achieved remission ([facility]) [C90.00] Follow-up and Disposition History Recorded Prescriptions as of 09/18/2017 Sig: LENALIDOMIDE 15 MG CAPSULE Take 1 capsule by mouth once * DEXAMETHASONE 4 MG TABLET Take 5 tablets by mouth once * NYSTATIN 100,000 UNIT/ML ORAL* Take 5 mL by mouth four times* ACYCLOVIR 400 MG TABLET TAKE ONE TABLET BY MOUTH TWIC* CLOPIDOGREL 75 MG TABLET Take 75 mg by mouth once juan miguel* PANTOPRAZOLE 40 MG TABLET,DEL* Take 40 mg by mouth once juan miguel* DULCOLAX (BISACODYL) ORAL Take 1 tablet by mouth as nee* ONDANSETRON HCL 8 MG TABLET TAKE ONE TABLET BY MOUTH EVER* SENNOSIDES 8.6 MG-DOCUSATE SO* Take 1 tablet by mouth once d* VITAMINS AND MINERALS ORAL Take by mouth once daily. FUROSEMIDE 20 MG TABLET Take 20 mg by mouth once juan miguel* GLUCOTROL XL 10 MG TABLET,EXT* 10 mg once daily. HYDROCODONE 10 MG-ACETAMINOPH* Take 1 tablet by mouth every * TAMSULOSIN 0.4 MG CAPSULE Take 0.4 mg by mouth once donna* VYTORIN 10 MG-80 MG TABLET daily at bedtime. * AMLODIPINE 10 MG-BENAZEPRIL 2* Take one(1) tablet daily. * PIOGLITAZONE 45 MG TABLET Take one(1) tablet daily. * VALSARTAN 320 MG-HYDROCHLOROT* Take one(1) tablet daily. * ASPIRIN 81 MG CHEWABLE TABLET Take one(1) tablet daily. * GABAPENTIN 100 MG CAPSULE Take one(1) tablet 2-3 times * OXYBUTYNIN CHLORIDE ER 10 MG * Take 10 mg by mouth once juan miguel* OXYBUTYNIN CHLORIDE ER 5 MG T* Take 5 mg by mouth once daily* Problem List As Of Date 09/18/2017 Noted Resolved Hypertension [I10] INVALID FOR* Hypercholesteremia [E78.00] INVALID FOR* PAD (peripheral artery disease) [I73.9] INVALID FOR* Nevus [D22.9] INVALID FOR*09/06/2016 Multiple myeloma not having achieved remission *INVALID FOR* 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 FOR* Visit Notes: >> Holly Fish (Director Index) MADISON Patel Suzy September 18, 2017 3:29 PM Status: Signed Est pt, discuss recent labs , tx tomorrow Holly PatelCINTHYAN Encounter Status:Closed by ROBEL MADDEN DO on 09/19/17 PROGRESS Observed: 09/18/2017 Status: COMPLETED Source: [place] 3:41 PM [facility] REPOSITORY [facility] ID: [id number] Author: Robel Madden Service: (none) Author Type: Physician Type: Progress Notes Filed: 09/19/2017 8:27 AM Note Text: Diagnosis: 1) Multiple myeloma. Baseline assessment on initial diagnosis: IMWG criteria, [place] Journal of Haematology 121: 749?57, 2003, update in: Júnior et al. Leukemia 20: 1467-73, 2006 and at IMW meeting Jaye 2010 ? Symptomatic multiple myeloma: IgG kappa. ? Related Organ or Tissue Involvement (CRAB) or other Myeloma Defining Event (MDE): Anemia requiring transfusion. Otherwise, baseline bone survey 09/04/2016 revealed no lytic lesions. Baseline serum calcium, ionized value 1.2 mmol per liter. Baseline serum creatinine 1.2 mg/dL. ? Antecedent plasma cell dyscrasia: None known. ? Myeloma FISH panel: 13q14 (RB1): ? ? 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 ?Normal pattern 14q32 (IGH): ? ? 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 The translocation partner cannot be identified. These corresponds to standard risk disease. ? Cytogenetics: Pending. ? LDH: 210 (135-225 U/L) ? ISS stage: B2M not drawn. ? [place] Durie Stage: III (anemia with Hgb < 8.5 g/dL) ? Monoclonal proteins at diagnosis: Serum M-spike: 7.5 gm/dL, Involved serum free light chains: gdwyl=8728.0 mg/L, Uninvolved serum free light chains: lambda= 5.8 mg/L. ? Bone marrow plasma cell infiltration: 22%. HPI: The patient is a 77 yo male with PMH significant for CAD, PVD, HTN and DM2. The patient had a CBC done on 01/23/2016. At that time the white count was 6300. Hemoglobin was 10.6 g/dL and the platelet count 179,000. Chemistries at that time included a basic metabolic profile that showed a creatinine of 1.0 mg/dL. Patient had repeat CBC on 07/12/2016. The hemoglobin was noted to be 8.7 g/dL. The total white count was 6600. The differential was unremarkable. Platelet count 134,000. Chemistries were remarkable for a total serum protein at 14 g/dL. Albumin was 3.4 g/dL. Globulin fraction was not able to be determined. The remainder the chemistries were unremarkable and specifically the serum creatinine was 0.9. CBC was repeated on 07/22/2016 the hemoglobin was 8.5 g/dL. Again the total white count differential were normal. Platelet count 135,000 serum protein 14.1 g/dL. Globulin fraction was noted to be outside the reportable range. He was admitted to [facility] the first week of August. He had significant anemia and received a 2 unit red blood cell transfusion. He underwent EGD and colonoscopy. 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 Most significantly he had been having epistaxis in the few weeks prior to presentaton. This required packing. He also underwent a cauterization sometime in the last week or so but had significant right- sided epistaxis before coming in today. He is not on anticoagulation. He denies other bleeding problems. Previous therapy: 1) VCd x8 cycles. 2) Vd x2 cycles. 3) RVd x1 cycle--started lenalidomide 07/25/2017. Current therapy: 1) Rd. Presents for ongoing hematologic management. Interim history: Neuropathic pain better since off Velcade. No falls or stumbles. Doesn't need cane. No side effects from Revlimid other than fatigue so he takes it at night and has no problem. No rash. PMH, medications and allergies as below personally reviewed by me today. Any changes documented in appropriate section. ROS: Constitutional: Denies episodes of fever. Normal appetite. Generalized fatigue. Neuro: See above. HEENT: No recent change in voice, vision or hearing. Resp: Cough is considerably less. No wheeze. No shortness of breath at rest. CV no hemoptysis.S: Denies PND and orthopnea. He has chronic mild swelling/pitting edema of both legs worse on the left secondary to previous vein harvest for bypass surgery. GI: Denies symptoms of stomatitis. Denies dysphagia and odynophagia. Denies abdominal pain. : Denies dysuria or gross hematuria. No symptoms of bladder outlet obstruction. Endo: Denies hot flashes. Denies polyuria and polydipsia. Denies heat and cold intolerance. Musculoskeletal: Denies bone, joint and muscular pain. Stable lower back pain. Derm: Denies rash. Denies jaundice and diffuse pruritis. Heme: See above. Psych: Normal mood. PHYSICAL EXAM: Vitals: Blood pressure 111/55, pulse 83, temperature 37.1 ?C (98.7 ?F), weight 82.8 kg (182 lb 8 oz). Well-appearing and in no acute distress. EYES: Sclerae are anicteric bilaterally. NECK: Supple. LYMPHATIC: There is no palpable cervical, supraclavicular denopathy. RESPIRATORY: Inspiratory breath sounds are of normal intensity in all thakur. No rales, wheezes or rhonchi. CARDIOVASCULAR: Rhythm is regular. Normal intensity S1/S2. ABDOMEN: The abdomen is nondistended. No organomegaly. No tenderness. Extremities: Trace edema of distal LEs. SKIN: No rash. No petechiae. NEUROLOGIC: ore trimmer II-XII are grossly intact. No focal motor weakness--symmetric diffuse weakness of the legs. MUSCULOSKELETAL: No muscle wasting. PATHOLOGY: BONE MARROW, ASPIRATE SMEARS, CORE BIOPSY, AND CLOT SECTION, WITH PERIPHERAL BLOOD SMEAR (A-C): - PLASMA CELL MYELOMA, KAPPA-MONOTYPIC (30% OF CELLULARITY). - NORMOCELLULAR MARROW (40%) WITH TRILINEAGE HEMATOPOIESIS. - NORMOCYTIC ANEMIA AND THROMBOCYTOPENIA. - DECREASED STORAGE IRON. - SEE COMMENT. ? ? ? COMMENT: The patient was recently found to have an IgG kappa paraprotein. Correlation with results of pending conventional cytogenetic analysis and fluorescence in situ hybridization studies is recommended. PERIPHERAL BLOOD: CBC ?(08/21/2016): ?WBC ? 6.44 ; ? Hgb ? 8.9 ; ? MCV ? 90.4 ; ? RDW ? 17.7 ; ? Plts ?119. Differential (%): ? ? ?Segs ? 56 ; ? Lymphs ? 40 ;?? Monos ? 4 ; ? Eos ? 0 ; ? Baso ?0. Morphology/Interpretation: ?Normocytic anemia with rouleaux formation. Thrombocytopenia. Red blood cell anisocytosis. BONE MARROW ASPIRATE: ? ?Normal % ? ?(0-2) ? ? 0 % ? Blasts ? ?(1-5) ? ? 0 % ? Promyelo ? ?(32-72) ?43 % ? Myelos/Metas/Bands/Segs ? ?(1-6) ? ? 1 % ? Eosinophils ? ?(0-1) ? ? 0 % ? Basophils ? ?(0-4) ? ? 1 % ? Monocytes ? ?(13-37) ?18 % ? Erythroid precursors ? ?(7-23) ? 15 % ? Lymphocytes ? ?(0-2) ? ?22 % ? Plasma cells ASSESSMENT/PLAN: (C90.00) Multiple myeloma not having achieved remission (HCC) (primary encounter diagnosis) (D75.9) Hyperviscosity Assessment: -IgG kappa multiple myeloma. -Symptomatic anemia presentation requiring transfusion. -He also had significantly elevated serum protein with some symptoms of hyperviscosity including epistaxis and previous GI bleeding. -Improved neuropathy off Velcade. -Serum protein declining with use of Rd alone. Plan: -Continue to hold bortezomi. -Continue lenalidomide with cycle #3 beginning Tuesday 09/19. -Continue dexamethasone 20 mg once a week x3 weeks with day 1, 8 and 15 of lenalidomide. Supportive care: Hematology: Anemia stable. Likely secondary to Revlimid. Continue to monitor CBC and provide transfusional support as indicated--hasn't required transfusional support since initiating treatment for the myeloma. Renal: Normal creatinine at baseline--clinically no evidence for renal dysfunction. Infectious diseases: Continue prophylactic acyclovir. Musculoskeletal: Has h/o MS pain including chronic low back pain from injury at [employer] and left knee pain--stable. Bisphoshonates: No obvious lytic lesions at baseline evaluation and baseline DEXA showed normal bone density. This is in keeping with the [facility] care-path guidelines to hold on bisphosphonate therapy. Venous thromboembolism risk: He continues on low dose ASA and Plavix. He will continue these medications. control counseling: Neurology: Baseline neuropathy improved. (E11.51) Type 2 diabetes mellitus with diabetic peripheral angiopathy without gangrene, unspecified custodial insulin use status ([facility]) (I73.9) PAD (peripheral artery disease) ([facility]) -He will continue follow-up with his PCP for these issues. Robel Madden DO DAVID ABS GR + CBC Collected: 09/18/2017 Status: F Source: [place] 3:32 PM [facility] REPOSITORY TYPE CODE TESTS RESULT OUT OF REFERENCE UNITS RANGE LAB WWBC 3.70-11.00 k/uL David WBC 4.18 LAB WRBC 4.20-6.00 m/uL Low [place] RBC 2.80 LAB WHGB 13.0-17.0 g/dL Low [place] Hemoglobin 8.8 LAB WHCT 39.0-51.0 % Low David Hematocrit 26.4 LAB WMCV 80.0-100.0 fL [place] MCV 94.3 LAB WMCH 26.0-34.0 pg David MCH 31.4 LAB WMCHC 30.5-36.0 g/dL [place] MCHC 33.3 LAB WRDW 11.5-15.0 % David High RDW 15.2 LAB WPLT 150-400 k/uL [place] Platelet Cnt 197 LAB WMPV 9.0-12.7 fL [place] MPV 9.4 Result Comment: Test performed at: [facility], [address] [place] [address] Rd[address] [place] [address]. LAB ABGRAN 1.45-7.50 k/uL Absol Gran 2.11 Count COMP METABOLIC PANEL Collected: 09/18/2017 Status: F Source: [place] 3:32 PM [facility] REPOSITORY TYPE CODE TESTS RESULT OUT OF REFERENCE UNITS RANGE LAB TP 6.3-8.0 g/dL Protein, Total 7.1 LAB ALB 3.9-4.9 g/dL Albumin 3.9 LAB CA 8.5-10.2 mg/dL Calcium, Total 9.2 LAB TBIL 0.2-1.3 mg/dL Bilirubin, Total 0.2 LAB ALKP 36-108 U/L Alkaline Phosphatase 74 LAB AST 14-40 U/L AST 25 LAB GLU 74-99 mg/dL Glucose High 185 Result Comment: The [place] [employer] (ADA) provides guidance for cutoff values for fasting glucose and random glucose. The ADA defines fasting as no caloric intake for at least 8 hours. Fas ting plasma glucose results between 100 to 125 mg/dL indicate increased risk for diabetes (prediabetes). Fasting plasma glucose results greater than or equal to 126 mg/dL meet the criteria for diagnosis of diabetes. In the absence of unequivocal hyperglycemia, results should be confirmed by repeat testing. In a patient with classic symptoms of hyperglycemia or hyperglycemic crisis, random plasma glucose results greater than or equal to 200 mg/dL meet the criteria for diagnosis of diabetes. Reference: Standards of Medical Care in Diabetes 2016, [place] [employer]. Diabetes Care. 2016.39(Suppl 1). LAB BUN 9-24 mg/dL BUN 21 LAB CRET 0.73-1.22 mg/dL Creatinine High 1.45 LAB NA 136-144 mmol/L Low Sodium 132 LAB K 3.7-5.1 mmol/L Potassium 3.8 LAB CL 97-105 mmol/L Low Chloride 92 LAB CO2 22-30 mmol/L CO2 22 LAB AGAP 9-18 mmol/L Anion Gap 18 LAB ALT 10-54 U/L ALT 19 LAB GFRAA eGFR- Amer. 57 LAB GFRNAA . eGFR-All Other Races 47 Result Comment: eGFR (Estimated GFR) Units of measure: mL/min/1.73 meters squared eGFR is derived from the reexpressed MDRD Study equation using the following parameters: serum creatinine, age, gender and race. The creatinine assay has been calibrated to be traceable to IDMS. An eGFR <60 mL/min/1.73m2 for >3 months is consistent with chronic kidney disease. Refer to KDOQI guidelines for clinical interpretation. In patients with unstable renal function, e.g. those with acute kidney injury, the eGFR may not accurately reflect actual GFR. Performed By: #### CMP, B2M, KLFRS, MPASRM, SEPG #### [facility] [address] [place], [place] [address] B2 MICROGLOBULIN Collected: 09/18/2017 Status: F Source: [place] 3:32 PM [facility] REPOSITORY TYPE CODE TESTS RESULT OUT OF REFERENCE UNITS RANGE LAB B2M 0.8-2.2 mg/L B2 Microglobulin High 2.9 Performed By: #### CMP, B2M, KLFRS, MPASRM, SEPG #### [facility] [address] [place], [place] [address] KAPPA/MILLER,FREE,SER Collected: Status: F Source: [place] 09/18/2017 3:32 PM [facility] REPOSITORY TYPE CODE TESTS RESULT OUT OF REFERENCE UNITS RANGE LAB FKAPS 3.30-19.40 mg/L High [place], 23.9 Free, Serum Result Comment: Rarely, increased serum free light chains values may not be detected due to antigen excess phenomenon. Results should always be correlated with other laboratory results and clinical findings. LAB FLAMS 5.7-26.3 mg/L Lambda, Free, 14.8 Serum Result Comment: Rarely, increased serum free light chains values may not be detected due to antigen excess phenomenon. Results should always be correlated with other laboratory results and clinical findings. LAB KLRAT 0.26-1.65 K/L Ratio, 1.61 Serum Performed By: #### CMP, B2M, KLFRS, MPASRM, SEPG #### [facility] [address] [place], [place] [address] MONOCLONL PROTEIN,BL Collected: 09/18/2017 Status: F Source: [place] 3:32 PM [facility] REPOSITORY TYPE CODE TESTS RESULT OUT OF RANGE REFERENCE UNITS LAB MPAIGG 717-1411 mg/dL MPA Serum IgG 848 LAB MPAIGA 78-391 mg/dL MPA Serum IgA 126 LAB MPAIGM 53-334 mg/dL Low MPA Serum IgM 17 LAB MPAK 534-1267 mg/dL Serum [place] 656 LAB MPAL 253-653 mg/dL Serum Lambda 297 LAB MPAKL 1-3 MPA Juan Ramon/Bentley Ratio 2.21 LAB MPAR No M protein is MPA Result Abnormal identified. M protein Alert is present. LAB INTP MPA Interpretation SEE COMMENT Result Comment: Atypical restricted bands are present in the IgG and kappa regions. Consistent with IgG kappa monoclonal gammopathy. LAB MPASTF Staff Reviewed by Review Russell Carrera M.D., PhD ([id number]) Performed By: #### CMP, B2M, KLFRS, MPASRM, SEPG #### [facility] [address] [place], [place] [address] PROTEIN ELECTROPHOR. Collected: 09/18/2017 Status: F Source: [place] 3:32 PM [facility] REPOSITORY TYPE CODE TESTS RESULT OUT OF REFERENCE UNITS RANGE LAB TPSPE 6.0-8.4 g/dL Total Protein, SPE 6.9 LAB ALBE 3.37-4.23 gm/dL Albumin 3.58 LAB A1GL 0.18-0.31 gm/dL Alpha 1 Globulin 0.31 LAB A2GL 0.52-0.97 gm/dL Alpha 2 Globulin High 1.04 LAB BEGL 0.84-1.36 gm/dL Beta Globulin 1.04 LAB GAGL 0.70-1.44 gm/dL Gamma Globulin 0.93 LAB SPEINT Interpretation SEE COMMENT Result Comment: An M protein is identified on protein electrophoresis. See separate immunofixation report for characterization of the M protein. LAB LOC M Protein Gamma Location fraction LAB GPERDL 0.00 gm/dL M Cesar 0.31 High Concentratn LAB SPESTF SPE Staff Review Reviewed by Russell Carrera M.D., PhD ([id number]) Performed By: #### CMP, B2M, KLFRS, MPASRM, SEPG #### [facility] [address] [address] [place], [place] [address] CBC Collected: 09/03/2017 Status: F Source: [facility] 9:58 AM [facility] REPOSITORY TYPE CODE TESTS RESULT OUT OF REFERENCE UNITS RANGE LAB WBC(LOINC) 4.60-10.80 10 3/mcL WBC 8.20 LAB RBCCT(LOINC 4.04-6.13 10 6/mcL ) Low RBC 3.02 LAB HGB(LOINC) 14.0-18.0 G/dL Low Hgb 9.6 LAB HCT(LOINC) 42.0-52.0 % Low Hct 27.9 LAB MCV(LOINC) 80.0-94.0 fL MCV 92.4 LAB MCH(LOINC) 27.0-31.2 pg High MCH 31.7 LAB MCHC(LOINC) 31.8-35.4 G/dL MCHC 34.3 LAB RDW(LOINC) 11.5-14.5 % High RDW 15.9 LAB PLT(LOINC) 130-400 10 3/mcL Platelet 202 LAB MPV(LOINC) 7.4-10.4 fL MPV 9.7 Performed By: #### CBC, ADIFF, ANEU, LIPID, CMP, GFR, TSH, PSA, A1C #### [address] [address] .AUTO DIFF Collected: 09/03/2017 Status: F Source: [facility] 9:58 AM [facility] REPOSITORY TYPE CODE TESTS RESULT OUT OF REFERENCE UNITS RANGE LAB GREGORY(LOINC) 37.0-80.0 % Neutrophil % 71.3 LAB LYM(LOINC) 10.0-50.0 % Lymphocyte % 14.7 LAB MON(LOINC) 1.7-13.0 % Monocyte % 11.0 LAB EO(LOINC) 0.0-7.0 % Eosinophil % 2.7 LAB BAS(LOINC) 0.0-2.5 % Basophil % 0.3 LAB ABLYM(LOIN 0.77-3.85 10 3/mcL C) Lymphocyte, 1.20 Absolute LAB LOC(LOINC 0.15-1.00 10 3/mcL ) Monocyte, 0.90 Absolute LAB AEOS(LOINC 0.00-0.40 10 3/mcL ) Eosinophil, 0.20 Absolute LAB ABAS(LOINC 0.00-0.19 10 3/mcL ) Basophil, 0.00 Absolute Performed By: #### CBC, ADIFF, ANEU, LIPID, CMP, GFR, TSH, PSA, A1C #### [address] [address] .NEUABS Collected: 09/03/2017 Status: F Source: [facility] 9:58 AM [facility] REPOSITORY TYPE CODE TESTS RESULT OUT OF REFERENCE UNITS RANGE LAB ANEU(LOINC) 2.85-6.16 10 3/mcL Neutrophil, 5.80 Absolute Performed By: #### CBC, ADIFF, ANEU, LIPID, CMP, GFR, TSH, PSA, A1C #### [facility] [address] [place], [place] [address] LIPID Collected: 09/03/2017 Status: F Source: [facility] 9:58 AM [facility] REPOSITORY TYPE CODE TESTS RESULT OUT OF REFERENCE UNITS RANGE LAB CHOL(LOINC 131-200 mg/dL ) Cholesterol 158 Result Comment: Cholesterol Reference Interval: Less than 200 Desirable 200-239 Borderline high risk 240 and above High risk LAB TRIG(LOINC) 40-150 mg/dL Triglycerides 92 Result Comment: Triglyceride Reference Interval: Less than 150 Normal 150-199 Borderline high risk 200-499 High risk 500 or higher Very high risk LAB HD(LOINC) 35-90 mg/dL HDL Cholesterol 54 Result Comment: HDL Reference Interval: Less than 40 Low - high risk 60 or above Optimal/lowers risk LAB LDL(LOINC) 0-130 mg/dL LDL Cholesterol 86 Result Comment: LDL is a calculated result and requires a 12-hr fast. LDL Reference Interval: Less than 100 Optimal 100-129 Near or above optimal 130-159 Borderline high risk 160-189 High risk 190 and above Very high risk Performed By: #### CBC, ADIFF, ANEU, LIPID, CMP, GFR, TSH, PSA, A1C #### [id number] [place], [place] [address] CMP Collected: 09/03/2017 Status: F Source: [facility] 9:58 AM [facility] REPOSITORY TYPE CODE TESTS RESULT OUT OF REFERENCE UNITS RANGE LAB 1547-9 83-110 mg/dL GLUCOSE High 174 LAB NA(LOINC) 136-146 mEq/L Low Sodium Level 130 LAB K(LOINC) 3.5-5.1 mEq/L Low Potassium Level 3.3 LAB CL(LOINC) 98-107 mEq/L Low Chloride 96 LAB CO2(LOINC) 23-31 mEq/L CO2 27 LAB EBAL(LOINC mEq/L ) Electrolyte Balance 7.0 LAB BUN(LOINC) 7.0-18.0 mg/dL BUN 18.0 LAB CRE(LOINC) 0.6-1.2 mg/dL Creatinine Lvl (s) 0.9 LAB BC(LOINC) 7-27 ratio BUN/Creatinine 20 Ratio LAB CA(LOINC) 8.4-10.2 mg/dL Calcium Lvl 9.0 LAB PROT(LOINC 6.0-8.3 G/dL ) Total Protein 6.2 LAB ALB(LOINC) 3.4-4.8 G/dL Albumin Level 3.5 LAB GLB(LOINC) G/dL Globulin 2.7 LAB AG(LOINC) 1.1-2.5 ratio A/G Ratio 1.3 LAB BILT(LOINC 0.2-1.0 mg/dL ) Bili Total 0.3 LAB AP(LOINC) 40-135 IU/L Alk Phos 78 LAB AST(LOINC) 10-40 IU/L AST/SGOT 12 LAB ALT(LOINC) 10-35 IU/L ALT/SGPT 14 Performed By: #### CBC, ADIFF, ANEU, LIPID, CMP, GFR, TSH, PSA, A1C #### [address] [address] .GFR Collected: 09/03/2017 Status: F Source: [facility] 9:58 AM [facility] REPOSITORY TYPE CODE TESTS RESULT OUT OF REFERENCE UNITS RANGE LAB GFRAA(LOINC ml/min/1.73 ) sqm GFR 103 [place] Result Comment: GFR Population mean for , Non- Americans Ages 20-29 = 116 mL/min/1.73 sq.m. Ages 30-39 = 107 mL/min/1.73 sq.m. Ages 40-49 = 99 mL/min/1.73 sq.m. Ages 50-59 = 93 mL/min/1.73 sq.m. Ages 60-69 = 85 mL/min/1.73 sq.m. Ages 70+ = 75 mL/min/1.73 sq.m. Chronic Kidney Disease: Less than 60 mL/min/1.73 square meters End Stage Renal Disease: Less than 15 mL/min/1.73 square meters LAB GFRNO(LOINC) ml/min/1.73sqm GFR Non- >60 Result Comment: GFR Population mean for , Non- Americans Ages 20-29 = 116 mL/min/1.73 sq.m. Ages 30-39 = 107 mL/min/1.73 sq.m. Ages 40-49 = 99 mL/min/1.73 sq.m. Ages 50-59 = 93 mL/min/1.73 sq.m. Ages 60-69 = 85 mL/min/1.73 sq.m. Ages 70+ = 75 mL/min/1.73 sq.m. Chronic Kidney Disease: Less than 60 mL/min/1.73 square meters End Stage Renal Disease: Less than 15 mL/min/1.73 square meters Performed By: #### CBC, ADIFF, ANEU, LIPID, CMP, GFR, TSH, PSA, A1C #### [address] [address] TSH Collected: 09/03/2017 Status: F Source: [facility] 9:58 AM [facility] REPOSITORY TYPE CODE TESTS RESULT OUT OF RANGE REFERENCE UNITS LAB TSH(LOINC) 0.27-4.20 mcIU/mL TSH 0.91 Performed By: #### CBC, ADIFF, ANEU, LIPID, CMP, GFR, TSH, PSA, A1C #### [address] [address] PSA Collected: 09/03/2017 Status: F Source: [facility] 9:58 AM [facility] REPOSITORY TYPE CODE TESTS RESULT OUT OF REFERENCE UNITS RANGE LAB PSA(LOINC) 0.00-4.00 ng/mL High Prostate 17.22 Specific Antigen Result Comment: Above normal(expected)range Performed By: #### CBC, ADIFF, ANEU, LIPID, CMP, GFR, TSH, PSA, A1C #### [address] [address] A1C Collected: 09/03/2017 Status: F Source: [facility] 9:58 AM [facility] REPOSITORY TYPE CODE TESTS RESULT OUT OF RANGE REFERENCE UNITS LAB A1C(LOINC) 4.8-5.9 % High Hgb A1c 9.9 Performed By: #### CBC, ADIFF, ANEU, LIPID, CMP, GFR, TSH, PSA, A1C #### [address] [address] DAVID ABS GR + CBC Collected: 08/29/2017 Status: F Source: [place] 2:29 PM [facility] REPOSITORY TYPE CODE TESTS RESULT OUT OF REFERENCE UNITS RANGE LAB WWBC 3.70-11.00 k/uL David WBC 6.50 LAB WRBC 4.20-6.00 m/uL Low David RBC 2.92 LAB WHGB 13.0-17.0 g/dL Low David Hemoglobin 9.2 LAB WHCT 39.0-51.0 % Low David Hematocrit 27.6 LAB WMCV 80.0-100.0 fL [place] MCV 94.5 LAB WMCH 26.0-34.0 pg [place] MCH 31.5 LAB WMCHC 30.5-36.0 g/dL David MCHC 33.3 LAB WRDW 11.5-15.0 % [place] RDW 14.9 LAB WPLT 150-400 k/uL David Platelet Cnt 259 LAB WMPV 9.0-12.7 fL David MPV 11.1 Result Comment: Test performed at: [facility] [place], [address] [place] [address]. LAB ABGRAN 1.45-7.50 k/uL Absol Gran 6.11 Count PROGRESS Observed: 08/20/2017 Status: COMPLETED Source: [place] 4:11 PM [facility] [place] REPOSITORY HNO ID: [id number] Author: Robel Madden Service: (none) Author Type: Physician Type: Progress Notes Filed: 08/20/2017 4:49 PM Note Text: Diagnosis: 1) Multiple myeloma. Baseline assessment on initial diagnosis: IMWG criteria, [place] Journal of Haematology 121: 749?57, 2003, update in: Rosemaryie et al. Leukemia 20: 1467-73, 2006 and at IMW meeting Jaye 2010 ? Symptomatic multiple myeloma: IgG kappa. ? Related Organ or Tissue Involvement (CRAB) or other Myeloma Defining Event (MDE): Anemia requiring transfusion. Otherwise, baseline bone survey 09/04/2016 revealed no lytic lesions. Baseline serum calcium, ionized value 1.2 mmol per liter. Baseline serum creatinine 1.2 mg/dL. ? Antecedent plasma cell dyscrasia: None known. ? Myeloma FISH panel: 13q14 (RB1): ? ? 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 ?Normal pattern 14q32 (IGH): ? ? 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 The translocation partner cannot be identified. These corresponds to standard risk disease. ? Cytogenetics: Pending. ? LDH: 210 (135-225 U/L) ? ISS stage: B2M not drawn. ? [place] Stage: III (anemia with Hgb < 8.5 g/dL) ? Monoclonal proteins at diagnosis: Serum M-spike: 7.5 gm/dL, Involved serum free light chains: obfsb=0731.0 mg/L, Uninvolved serum free light chains: lambda= 5.8 mg/L. ? Bone marrow plasma cell infiltration: 22%. HPI: The patient is a 77 yo male with PMH significant for CAD, PVD, HTN and DM2. The patient had a CBC done on 01/23/2016. At that time the white count was 6300. Hemoglobin was 10.6 g/dL and the platelet count 179,000. Chemistries at that time included a basic metabolic profile that showed a creatinine of 1.0 mg/dL. Patient had repeat CBC on 07/12/2016. The hemoglobin was noted to be 8.7 g/dL. The total white count was 6600. The differential was unremarkable. Platelet count 134,000. Chemistries were remarkable for a total serum protein at 14 g/dL. Albumin was 3.4 g/dL. Globulin fraction was not able to be determined. The remainder the chemistries were unremarkable and specifically the serum creatinine was 0.9. CBC was repeated on 07/22/2016 the hemoglobin was 8.5 g/dL. Again the total white count differential were normal. Platelet count 135,000 serum protein 14.1 g/dL. Globulin fraction was noted to be outside the reportable range. He was admitted to [facility] the first week of August. He had significant anemia and received a 2 unit red blood cell transfusion. He underwent EGD and colonoscopy. 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 Most significantly he had been having epistaxis in the few weeks prior to presentaton. This required packing. He also underwent a cauterization sometime in the last week or so but had significant right- sided epistaxis before coming in today. He is not on anticoagulation. He denies other bleeding problems. Previous therapy: 1) VCd x8 cycles. 2) Vd x2 cycles. Current therapy: 1) RVd. Started lenalidomide 07/25/2017. Presents for ongoing hematologic management. Interim history: He's completed 1 cycle of lenalidomide. He tolerated it with no symptomatic side effect other than dry mouth and fatigue. He's been taking the medication in the morning. He fell a couple nights ago when he was getting up off the side of the bed. He had stood up and turned and then fell backwards in his ankles buckled under him. He contacted his PCP. The patient is able to bear weight and he has a little bit of tenderness on the lateral malleoli bilaterally. His baseline neuropathy consistent of numbness and discomfort of the heels and toes. He also had numbness on the dorsum of the foot. He feels like this symptom may be slightly worse overall when compared to when he started treatment for the myeloma. Infrequent epistaxis. PMH, medications and allergies as below personally reviewed by me today. Any changes documented in appropriate section. ROS: Constitutional: Denies episodes of fever. Normal appetite. Generalized fatigue. Neuro: See above. HEENT: No recent change in voice, vision or hearing. Resp: Cough is considerably less. No wheeze. No shortness of breath at rest. CV no hemoptysis.S: Denies PND and orthopnea. He has chronic mild swelling/pitting edema of both legs worse on the left secondary to previous vein harvest for bypass surgery. GI: Denies symptoms of stomatitis. Denies dysphagia and odynophagia. Denies abdominal pain. : Denies dysuria or gross hematuria. No symptoms of bladder outlet obstruction. Endo: Denies hot flashes. Denies polyuria and polydipsia. Denies heat and cold intolerance. Musculoskeletal: Denies bone, joint and muscular pain. Stable lower back pain. Derm: Denies rash. Denies jaundice and diffuse pruritis. Heme: See above. Psych: Normal mood. PHYSICAL EXAM: Vitals: Blood pressure 147/53, pulse 72, temperature 37.4 ?C (99.4 ?F), temperature source Oral, weight 84.8 kg (187 lb). Well-appearing and in no acute distress. EYES: Sclerae are anicteric bilaterally. NECK: Supple. LYMPHATIC: There is no palpable cervical, supraclavicular denopathy. RESPIRATORY: Inspiratory breath sounds are of normal intensity in all thakur. No rales, wheezes or rhonchi. CARDIOVASCULAR: Rhythm is regular. Normal intensity S1/S2. ABDOMEN: The abdomen is nondistended. No organomegaly. No tenderness. Extremities: Trace edema of distal LEs. SKIN: No rash. No petechiae. NEUROLOGIC: ore trimmer II-XII are grossly intact. No focal motor weakness--symmetric diffuse weakness of the legs. MUSCULOSKELETAL: No muscle wasting. PATHOLOGY: BONE MARROW, ASPIRATE SMEARS, CORE BIOPSY, AND CLOT SECTION, WITH PERIPHERAL BLOOD SMEAR (A-C): - PLASMA CELL MYELOMA, KAPPA-MONOTYPIC (30% OF CELLULARITY). - NORMOCELLULAR MARROW (40%) WITH TRILINEAGE HEMATOPOIESIS. - NORMOCYTIC ANEMIA AND THROMBOCYTOPENIA. - DECREASED STORAGE IRON. - SEE COMMENT. ? ? ? COMMENT: The patient was recently found to have an IgG kappa paraprotein. Correlation with results of pending conventional cytogenetic analysis and fluorescence in situ hybridization studies is recommended. PERIPHERAL BLOOD: CBC ?(08/21/2016): ?WBC ? 6.44 ; ? Hgb ? 8.9 ; ? MCV ? 90.4 ; ? RDW ? 17.7 ; ? Plts ?119. Differential (%): ? ? ?Segs ? 56 ; ? Lymphs ? 40 ;?? Monos ? 4 ; ? Eos ? 0 ; ? Baso ?0. Morphology/Interpretation: ?Normocytic anemia with rouleaux formation. Thrombocytopenia. Red blood cell anisocytosis. BONE MARROW ASPIRATE: ? ?Normal % ? ?(0-2) ? ? 0 % ? Blasts ? ?(1-5) ? ? 0 % ? Promyelo ? ?(32-72) ?43 % ? Myelos/Metas/Bands/Segs ? ?(1-6) ? ? 1 % ? Eosinophils ? ?(0-1) ? ? 0 % ? Basophils ? ?(0-4) ? ? 1 % ? Monocytes ? ?(13-37) ?18 % ? Erythroid precursors ? ?(7-23) ? 15 % ? Lymphocytes ? ?(0-2) ? ?22 % ? Plasma cells ASSESSMENT/PLAN: (C90.00) Multiple myeloma not having achieved remission (HCC) (primary encounter diagnosis) (D75.9) Hyperviscosity Assessment: -IgG kappa multiple myeloma. -Symptomatic anemia presentation requiring transfusion. -He also had significantly elevated serum protein with some symptoms of hyperviscosity including epistaxis and previous GI bleeding. - difficulty know whether the worsening neuropathy is secondary to bortezomib or because of underlying diabetes. Nonetheless since he started on lenalidomide, I discussed a strategy of holding this upcoming cycle of Velcade and just using Rd as his treatment for this next cycle. Labs that were drawn today will indicate what response he had with the addition of lenalidomide over the past month. If he's had response and we will continue with Rd with omission of Velcade. If serum proteins increased then we will add back Velcade next cycle. -Explained to him and his to take dexamethasone, 20 mg on the first, second and third Friday of the 3 weeks he takes Revlimid. Plan: -Hold bortezomib this cycle. -Continue lenalidomide with cycle #2 beginning Tuesday 08/22. -Continue dexamethasone 20 mg once a week x3 weeks with day 1, 8 and 15 of lenalidomide. Supportive care: Hematology: anemia slightly worse. Likely secondary to Revlimid. Continue to monitor CBC and provide transfusional support as indicated--hasn't required transfusional support since initiating treatment for the myeloma. Renal: Normal creatinine at baseline--clinically no evidence for renal dysfunction. Infectious diseases: Continue prophylactic acyclovir. Musculoskeletal: Has h/o MS pain including chronic low back pain from injury at [employer] and left knee pain--stable. Bisphoshonates: No obvious lytic lesions at baseline evaluation and baseline DEXA showed normal bone density. This is in keeping with the [facility] care-path guidelines to hold on bisphosphonate therapy. Venous thromboembolism risk: He is currently on low dose ASA and Plavix. He will continue these medications. control counseling: Neurology: Baseline neuropathy progressed. 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 Robel Madden DO B2 MICROGLOBULIN Collected: 08/20/2017 Status: F Source: [place] 4:01 PM [facility] REPOSITORY TYPE CODE TESTS RESULT OUT OF REFERENCE UNITS RANGE LAB B2M 0.8-2.2 mg/L B2 Microglobulin High 2.9 Performed By: #### B2M, CMP, KLFRS, MPASRM, SEPG #### [facility] [address] [place] [id number] COMP METABOLIC PANEL Collected: 08/20/2017 Status: F Source: [place] 4:01 PM [facility] REPOSITORY TYPE CODE TESTS RESULT OUT OF REFERENCE UNITS RANGE LAB TP 6.3-8.0 g/dL Protein, Total 7.7 LAB ALB 3.9-4.9 g/dL Albumin 4.1 LAB CA 8.5-10.2 mg/dL Calcium, Total 9.5 LAB TBIL 0.2-1.3 mg/dL Bilirubin, Total 0.2 LAB ALKP 36-108 U/L Alkaline Phosphatase 69 LAB AST 14-40 U/L AST 24 LAB GLU 74-99 mg/dL Glucose High 188 Result Comment: The [place] Diabetes Association (ADA) provides guidance for cutoff values for fasting glucose and random glucose. The ADA defines fasting as no caloric intake for at least 8 hours. Fas ting plasma glucose results between 100 to 125 mg/dL indicate increased risk for diabetes (prediabetes). Fasting plasma glucose results greater than or equal to 126 mg/dL meet the criteria for diagnosis of diabetes. In the absence of unequivocal hyperglycemia, results should be confirmed by repeat testing. In a patient with classic symptoms of hyperglycemia or hyperglycemic crisis, random plasma glucose results greater than or equal to 200 mg/dL meet the criteria for diagnosis of diabetes. Reference: Standards of Medical Care in Diabetes 2016, [place] [employer] Association. Diabetes Care. 2016.39(Suppl 1). LAB BUN 9-24 mg/dL BUN 23 LAB CRET 0.73-1.22 mg/dL Creatinine 1.18 LAB NA 136-144 mmol/L Sodium Low 132 LAB K 3.7-5.1 mmol/L Potassium Low 3.6 LAB CL 97-105 mmol/L Chloride Low 93 LAB CO2 22-30 mmol/L CO2 22 LAB AGAP 9-18 mmol/L Anion Gap 17 LAB ALT 10-54 U/L ALT 17 LAB GFRAA eGFR- Amer. >60 LAB GFRNAA . eGFR-All Other Races 60 Result Comment: eGFR (Estimated GFR) Units of measure: mL/min/1.73 meters squared eGFR is derived from the reexpressed MDRD Study equation using the following parameters: serum creatinine, age, gender and race. The creatinine assay has been calibrated to be traceable to IDMS. An eGFR <60 mL/min/1.73m2 for >3 months is consistent with chronic kidney disease. Refer to KDOQI guidelines for clinical interpretation. In patients with unstable renal function, e.g. those with acute kidney injury, the eGFR may not accurately reflect actual GFR. Performed By: #### B2M, CMP, KLFRS, MPASRM, SEPG #### [facility] [address] [place], [place] [address] KAPPA/MILLER,FREE,SER Collected: Status: F Source: [place] 08/20/2017 4:01 PM [facility] REPOSITORY TYPE CODE TESTS RESULT OUT OF REFERENCE UNITS RANGE LAB FKAPS 3.30-19.40 mg/L High [place], 44.6 Free, Serum Result Comment: Rarely, increased serum free light chains values may not be detected due to antigen excess phenomenon. Results should always be correlated with other laboratory results and clinical findings. LAB FLAMS 5.7-26.3 mg/L Lambda, Free, 24.1 Serum Result Comment: Rarely, increased serum free light chains values may not be detected due to antigen excess phenomenon. Results should always be correlated with other laboratory results and clinical findings. LAB KLRAT 0.26-1.65 High K/L Ratio, 1.85 Serum Performed By: #### B2M, CMP, KLFRS, MPASRM, SEPG #### [facility] [address] [place], [place] [address] MONOCLONL PROTEIN,BL Collected: 08/20/2017 Status: F Source: [place] 4:01 PM [facility] REPOSITORY TYPE CODE TESTS RESULT OUT OF RANGE REFERENCE UNITS LAB MPAIGG 717-1411 mg/dL MPA Serum IgG 1140 LAB MPAIGA 78-391 mg/dL MPA Serum IgA 139 LAB MPAIGM 53-334 mg/dL Low MPA Serum IgM 11 LAB MPAK 534-1267 mg/dL Serum [place] 1190 LAB MPAL 253-653 mg/dL Serum Lambda 305 LAB MPAKL 1-3 High MPA Juan Ramon/Bentley Ratio 3.90 LAB MPAR No M protein is MPA Result Abnormal identified. M protein Alert is present. LAB INTP MPA Interpretation SEE COMMENT Result Comment: Atypical restricted bands are present in the IgG and kappa regions. Consistent with IgG kappa monoclonal gammopathy. LAB MPASTF Staff Reviewed by Review Yaniv Rowell M.D. ([id number]) Performed By: #### B2M, CMP, KLFRS, MPASRM, SEPG #### [facility] [address] [place], [place] [address] PROTEIN ELECTROPHOR. Collected: 08/20/2017 Status: F Source: [place] 4:01 PM [facility] REPOSITORY TYPE CODE TESTS RESULT OUT OF REFERENCE UNITS RANGE LAB TPSPE 6.0-8.4 g/dL Total Protein, SPE 7.3 LAB ALBE 3.37-4.23 gm/dL Albumin 3.44 LAB A1GL 0.18-0.31 gm/dL Alpha 1 Globulin High 0.41 LAB A2GL 0.52-0.97 gm/dL Alpha 2 Globulin High 1.07 LAB BEGL 0.84-1.36 gm/dL Beta Globulin 1.13 LAB GAGL 0.70-1.44 gm/dL Gamma Globulin 1.25 LAB SPEINT Interpretation SEE COMMENT Result Comment: An M protein is identified on protein electrophoresis. See separate immunofixation report for characterization of the M protein. LAB LOC M Protein Gamma Location fraction LAB GPERDL 0.00 gm/dL M Cesar 0.42 High Concentratn LAB SPESTF SPE Staff Review Reviewed by Yaniv Rowell M.D. ([id number]) Performed By: #### B2M, CMP, KLFRS, MPASRM, SEPG #### [facility] [address] [place], [place] [address] DAVID ABS GR + CBC Collected: 08/20/2017 Status: F Source: [place] 4:00 [facility] REPOSITORY TYPE CODE TESTS RESULT OUT OF REFERENCE UNITS RANGE LAB WWBC 3.70-11.00 k/uL David WBC 5.93 LAB WRBC 4.20-6.00 m/uL Low David RBC 2.83 LAB WHGB 13.0-17.0 g/dL Low David Hemoglobin 8.9 LAB WHCT 39.0-51.0 % Low [place] Hematocrit 26.6 LAB WMCV 80.0-100.0 fL David MCV 94.0 LAB WMCH 26.0-34.0 pg [place] MCH 31.4 LAB WMCHC 30.5-36.0 g/dL [place] MCHC 33.5 LAB WRDW 11.5-15.0 % David RDW 14.8 LAB WPLT 150-400 k/uL David Platelet Cnt 276 LAB WMPV 9.0-12.7 fL David MPV 10.2 Result Comment: Test performed at: [facility], [address] [place] [address] Rd., [place] [address]. LAB ABGRAN 1.45-7.50 k/uL Absol Gran 3.65 Count CNOVSP Observed: 08/20/2017 Status: COMPLETED Source: [place] 4:00 [facility] REPOSITORY Visit (SP) Office (ZOIE) GLENDY FLORES JR. ([id number]) 1940 M Date Time Provider Department 08/20/17 4:00 PM ROBEL MADDEN During your visit today, we recorded the following information about you: Temperature Pulse Blood pressure Weight 99.4 degrees 72/minute 147/53 84.8 kg Robel Madden DO 08/20/2017 4:49 PM Signed Diagnosis: 1) Multiple myeloma. Baseline assessment on initial diagnosis: IMWG criteria, [place] Journal of Haematology 121: 749?57, 2003, update in: Júnior et al. Leukemia 20: 1467-73, 2006 and at IMW meeting Jaye 2010 ? Symptomatic multiple myeloma: IgG kappa. ? Related Organ or Tissue Involvement (CRAB) or other Myeloma Defining Event (MDE): Anemia requiring transfusion. Otherwise, baseline bone survey 09/04/2016 revealed no lytic lesions. Baseline serum calcium, ionized value 1.2 mmol per liter. Baseline serum creatinine 1.2 mg/dL. ? Antecedent plasma cell dyscrasia: None known. ? Myeloma FISH panel: 13q14 (RB1): ? ? 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 ?Normal pattern 14q32 (IGH): ? ? 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 The translocation partner cannot be identified. These corresponds to standard risk disease. ? Cytogenetics: Pending. ? LDH: 210 (135-225 U/L) ? ISS stage: B2M not drawn. ? [place] Durie Stage: III (anemia with Hgb ANDlt; 8.5 g/dL) ? Monoclonal proteins at diagnosis: Serum M-spike: 7.5 gm/dL, Involved serum free light chains: vzvjp=7342.0 mg/L, Uninvolved serum free light chains: lambda= 5.8 mg/L. ? Bone marrow plasma cell infiltration: 22%. HPI: The patient is a 77 yo male with PMH significant for CAD, PVD, HTN and DM2. The patient had a CBC done on 01/23/2016. At that time the white count was 6300. Hemoglobin was 10.6 g/dL and the platelet count 179,000. Chemistries at that time included a basic metabolic profile that showed a creatinine of 1.0 mg/dL. Patient had repeat CBC on 07/12/2016. The hemoglobin was noted to be 8.7 g/dL. The total white count was 6600. The differential was unremarkable. Platelet count 134,000. Chemistries were remarkable for a total serum protein at 14 g/dL. Albumin was 3.4 g/dL. Globulin fraction was not able to be determined. The remainder the chemistries were unremarkable and specifically the serum creatinine was 0.9. CBC was repeated on 07/22/2016 the hemoglobin was 8.5 g/dL. Again the total white count differential were normal. Platelet count 135,000 serum protein 14.1 g/dL. Globulin fraction was noted to be outside the reportable range. He was admitted to [facility] the first week of August. He had significant anemia and received a 2 unit red blood cell transfusion. He underwent EGD and colonoscopy. 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 Most significantly he had been having epistaxis in the few weeks prior to presentaton. This required packing. He also underwent a cauterization sometime in the last week or so but had significant right-sided epistaxis before coming in today. He is not on anticoagulation. He denies other bleeding problems. Previous therapy: 1) VCd x8 cycles. 2) Vd x2 cycles. Current therapy: 1) RVd. Started lenalidomide 07/25/2017. Presents for ongoing hematologic management. Interim history: He's completed 1 cycle of lenalidomide. He tolerated it with no symptomatic side effect other than dry mouth and fatigue. He's been taking the medication in the morning. He fell a couple nights ago when he was getting up off the side of the bed. He had stood up and turned and then fell backwards in his ankles buckled under him. He contacted his PCP. The patient is able to bear weight and he has a little bit of tenderness on the lateral malleoli bilaterally. His baseline neuropathy consistent of numbness and discomfort of the heels and toes. He also had numbness on the dorsum of the foot. He feels like this symptom may be slightly worse overall when compared to when he started treatment for the myeloma. Infrequent epistaxis. PMH, medications and allergies as below personally reviewed by me today. Any changes documented in appropriate section. ROS: Constitutional: Denies episodes of fever. Normal appetite. Generalized fatigue. Neuro: See above. HEENT: No recent change in voice, vision or hearing. Resp: Cough is considerably less. No wheeze. No shortness of breath at rest. CV no hemoptysis.S: Denies PND and orthopnea. He has chronic mild swelling/pitting edema of both legs worse on the left secondary to previous vein harvest for bypass surgery. GI: Denies symptoms of stomatitis. Denies dysphagia and odynophagia. Denies abdominal pain. : Denies dysuria or gross hematuria. No symptoms of bladder outlet obstruction. Endo: Denies hot flashes. Denies polyuria and polydipsia. Denies heat and cold intolerance. Musculoskeletal: Denies bone, joint and muscular pain. Stable lower back pain. Derm: Denies rash. Denies jaundice and diffuse pruritis. Heme: See above. Psych: Normal mood. PHYSICAL EXAM: Vitals: Blood pressure 147/53, pulse 72, temperature 37.4 ?C (99.4 ?F), temperature source Oral, weight 84.8 kg (187 lb). Well-appearing and in no acute distress. EYES: Sclerae are anicteric bilaterally. NECK: Supple. LYMPHATIC: There is no palpable cervical, supraclavicular denopathy. RESPIRATORY: Inspiratory breath sounds are of normal intensity in all thakur. No rales, wheezes or rhonchi. CARDIOVASCULAR: Rhythm is regular. Normal intensity S1/S2. ABDOMEN: The abdomen is nondistended. No organomegaly. No tenderness. Extremities: Trace edema of distal LEs. SKIN: No rash. No petechiae. NEUROLOGIC: ore trimmer II-XII are grossly intact. No focal motor weakness--symmetric diffuse weakness of the legs. MUSCULOSKELETAL: No muscle wasting. PATHOLOGY: BONE MARROW, ASPIRATE SMEARS, CORE BIOPSY, AND CLOT SECTION, WITH PERIPHERAL BLOOD SMEAR (A-C): - PLASMA CELL MYELOMA, KAPPA-MONOTYPIC (30% OF CELLULARITY). - NORMOCELLULAR MARROW (40%) WITH TRILINEAGE HEMATOPOIESIS. - NORMOCYTIC ANEMIA AND THROMBOCYTOPENIA. - DECREASED STORAGE IRON. - SEE COMMENT. ? ? ? COMMENT: The patient was recently found to have an IgG kappa paraprotein. Correlation with results of pending conventional cytogenetic analysis and fluorescence in situ hybridization studies is recommended. PERIPHERAL BLOOD: CBC ?(08/21/2016): ?WBC ? 6.44 ; ? Hgb ? 8.9 ; ? MCV ? 90.4 ; ? RDW ? 17.7 ; ? Plts ?119. Differential (%): ? ? ?Segs ? 56 ; ? Lymphs ? 40 ;?? Monos ? 4 ; ? Eos ? 0 ; ? Baso ?0. Morphology/Interpretation: ?Normocytic anemia with rouleaux formation. Thrombocytopenia. Red blood cell anisocytosis. BONE MARROW ASPIRATE: ? ?Normal % ? ?(0-2) ? ? 0 % ? Blasts ? ?(1-5) ? ? 0 % ? Promyelo ? ?(32-72) ?43 % ? Myelos/Metas/Bands/Segs ? ?(1-6) ? ? 1 % ? Eosinophils ? ?(0-1) ? ? 0 % ? Basophils ? ?(0-4) ? ? 1 % ? Monocytes ? ?(13-37) ?18 % ? Erythroid precursors ? ?(7-23) ? 15 % ? Lymphocytes ? ?(0-2) ? ?22 % ? Plasma cells ASSESSMENT/PLAN: (C90.00) Multiple myeloma not having achieved remission (HCC) (primary encounter diagnosis) (D75.9) Hyperviscosity Assessment: -IgG kappa multiple myeloma. -Symptomatic anemia presentation requiring transfusion. -He also had significantly elevated serum protein with some symptoms of hyperviscosity including epistaxis and previous GI bleeding. - difficulty know whether the worsening neuropathy is secondary to bortezomib or because of underlying diabetes. Nonetheless since he started on lenalidomide, I discussed a strategy of holding this upcoming cycle of Velcade and just using Rd as his treatment for this next cycle. Labs that were drawn today will indicate what response he had with the addition of lenalidomide over the past month. If he's had response and we will continue with Rd with omission of Velcade. If serum proteins increased then we will add back Velcade next cycle. -Explained to him and his to take dexamethasone, 20 mg on the first, second and third Friday of the 3 weeks he takes Revlimid. Plan: -Hold bortezomib this cycle. -Continue lenalidomide with cycle #2 beginning Tuesday 08/22. -Continue dexamethasone 20 mg once a week x3 weeks with day 1, 8 and 15 of lenalidomide. Supportive care: Hematology: anemia slightly worse. Likely secondary to Revlimid. Continue to monitor CBC and provide transfusional support as indicated--hasn't required transfusional support since initiating treatment for the myeloma. Renal: Normal creatinine at baseline--clinically no evidence for renal dysfunction. Infectious diseases: Continue prophylactic acyclovir. Musculoskeletal: Has h/o MS pain including chronic low back pain from injury at [employer] and left knee pain--stable. Bisphoshonates: No obvious lytic lesions at baseline evaluation and baseline DEXA showed normal bone density. This is in keeping with the [facility] care-path guidelines to hold on bisphosphonate therapy. Venous thromboembolism risk: He is currently on low dose ASA and Plavix. He will continue these medications. control counseling: Neurology: Baseline neuropathy progressed. (E11.51) Type 2 diabetes mellitus with diabetic peripheral angiopathy without gangrene, unspecified rat exterminator insulin use status (HCC) (I73.9) PAD (peripheral artery disease) ([facility]) -He will continue follow-up with his PCP for these issues. Robel Madden DO Referring Provider: ROBEL MADDEN [[id number]] Allergies As of Date: 08/20/2017 (No Known Allergies) Date Reviewed: 08/20/2017 Reviewed by: Carmela Kelly - Fully Assessed Reason for Visit: Established Patient [[id number]] Primary Visit Diagnosis:Multiple myeloma not having achieved remission ([facility]) [C90.00] Other Visit Diagnoses:Essential hypertension [I10] Hypercholesteremia [E78.00] PAD (peripheral artery disease) (HCC) [I73.9] Type 2 diabetes mellitus with diabetic peripheral angiopathy without gangrene, unspecified whether custodial insulin use (HCC) [E11.51] Order(s):dexamethasone (DECADRON) 4 mg tabletTake 5 tablets by mouth once each week.Disp: 15 tabletRfl: 5 nystatin (MYCOSTATIN) 100,000 unit/mL suspensionTake 5 mL by mouth four times daily.Disp: 180 mLRfl: 5 Follow-up and Disposition History Recorded Prescriptions as of 08/20/2017 Sig: OXYBUTYNIN CHLORIDE ER 10 MG * Take 10 mg by mouth once juan miguel* ACYCLOVIR 400 MG TABLET TAKE ONE TABLET BY MOUTH TWIC* LENALIDOMIDE 15 MG CAPSULE Take 1 capsule by mouth once * CLOPIDOGREL 75 MG TABLET Take 75 mg by mouth once juan miguel* PANTOPRAZOLE 40 MG TABLET,DEL* Take 40 mg by mouth once juan miguel* DULCOLAX (BISACODYL) ORAL Take 1 tablet by mouth as nee* ONDANSETRON HCL 8 MG TABLET TAKE ONE TABLET BY MOUTH EVER* SENNOSIDES 8.6 MG-DOCUSATE SO* Take 1 tablet by mouth once d* VITAMINS AND MINERALS ORAL Take by mouth once daily. FUROSEMIDE 20 MG TABLET Take 20 mg by mouth once juan miguel* GLUCOTROL XL 10 MG TABLET,EXT* 10 mg once daily. HYDROCODONE 10 MG-ACETAMINOPH* Take 1 tablet by mouth every * TAMSULOSIN 0.4 MG CAPSULE Take 0.4 mg by mouth once donna* VYTORIN 10 MG-80 MG TABLET daily at bedtime. * AMLODIPINE 10 MG-BENAZEPRIL 2* Take one(1) tablet daily. * PIOGLITAZONE 45 MG TABLET Take one(1) tablet daily. * VALSARTAN 320 MG-HYDROCHLOROT* Take one(1) tablet daily. * ASPIRIN 81 MG CHEWABLE TABLET Take one(1) tablet daily. * GABAPENTIN 100 MG CAPSULE Take one(1) tablet 2-3 times * DEXAMETHASONE 4 MG TABLET Take 5 tablets by mouth once * NYSTATIN 100,000 UNIT/ML ORAL* Take 5 mL by mouth four times* OXYBUTYNIN CHLORIDE ER 5 MG T* Take 5 mg by mouth once daily* Medication notes this encounter OXYBUTYNIN CHLORIDE ER 5 MG TABLET,EXTENDED RELEASE 24 HR >> Carmela Kelly MA 08/20/2017 3:57 PM >> CARMELA KELLY MA FriAug 20, 2017 3:57 PM No longer taking this strength. Problem List As Of Date 08/20/2017 Noted Resolved Hypertension [I10] INVALID FOR* Hypercholesteremia [E78.00] INVALID FOR* PAD (peripheral artery disease) [I73.9] INVALID FOR* Nevus [D22.9] INVALID FOR*09/06/2016 Multiple myeloma not having achieved remission *INVALID FOR* 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 FOR* Encounter Status:Closed by ROBEL MADDEN DO on 08/20/17 DAVID ABS GR + CBC Collected: 08/01/2017 Status: F Source: [place] 3:31 PM [facility] REPOSITORY TYPE CODE TESTS RESULT OUT OF REFERENCE UNITS RANGE LAB WWBC 3.70-11.00 k/uL David WBC 7.86 LAB WRBC 4.20-6.00 m/uL Low David RBC 3.03 LAB WHGB 13.0-17.0 g/dL Low David Hemoglobin 9.5 LAB WHCT 39.0-51.0 % Low David Hematocrit 28.9 LAB WMCV 80.0-100.0 fL [place] MCV 95.4 LAB WMCH 26.0-34.0 pg [place] MCH 31.4 LAB WMCHC 30.5-36.0 g/dL [place] MCHC 32.9 LAB WRDW 11.5-15.0 % [place] RDW 15.0 LAB WPLT 150-400 k/uL David Platelet Cnt 169 LAB WMPV 9.0-12.7 fL [place] MPV 10.8 Result Comment: Test performed at: [facility] [place], [address] [place] [address]. LAB ABGRAN 1.45-7.50 k/uL Absol Gran 5.68 Count CNOVSP Observed: 07/24/2017 Status: COMPLETED Source: [place] 4:00 PM [facility] REPOSITORY Visit (SP) Office (HEMANNA MARIE) GLENDY FLORES JR. ([id number]) 1940 M Date Time Provider Department 07/24/17 4:00 PM ROBEL MADDEN During your visit today, we recorded the following information about you: Holly Patel LPN, LPN 07/24/2017 3:47 PM Signed Est pt, discuss recent labs results, chemo tomorrow MADISON Garcia DO 07/24/2017 4:31 PM Signed Diagnosis: 1) Multiple myeloma. Baseline assessment on initial diagnosis: IMWG criteria, [place] Journal of Haematology 121: 749?57, 2003, update in: Júnior et al. Leukemia 20: 1467-73, 2006 and at IMW meeting Jaye 2010 ? Symptomatic multiple myeloma: IgG kappa. ? Related Organ or Tissue Involvement (CRAB) or other Myeloma Defining Event (MDE): Anemia requiring transfusion. Otherwise, baseline bone survey 09/04/2016 revealed no lytic lesions. Baseline serum calcium, ionized value 1.2 mmol per liter. Baseline serum creatinine 1.2 mg/dL. ? Antecedent plasma cell dyscrasia: None known. ? Myeloma FISH panel: 13q14 (RB1): ? ? 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 ?Normal pattern 14q32 (IGH): ? ? 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 The translocation partner cannot be identified. These corresponds to standard risk disease. ? Cytogenetics: Pending. ? LDH: 210 (135-225 U/L) ? ISS stage: B2M not drawn. ? [place] Durie Stage: III (anemia with Hgb ANDlt; 8.5 g/dL) ? Monoclonal proteins at diagnosis: Serum M-spike: 7.5 gm/dL, Involved serum free light chains: ygfeb=1825.0 mg/L, Uninvolved serum free light chains: lambda= 5.8 mg/L. ? Bone marrow plasma cell infiltration: 22%. HPI: The patient is a 77 yo male with PMH significant for CAD, PVD, HTN and DM2. The patient had a CBC done on 01/23/2016. At that time the white count was 6300. Hemoglobin was 10.6 g/dL and the platelet count 179,000. Chemistries at that time included a basic metabolic profile that showed a creatinine of 1.0 mg/dL. Patient had repeat CBC on 07/12/2016. The hemoglobin was noted to be 8.7 g/dL. The total white count was 6600. The differential was unremarkable. Platelet count 134,000. Chemistries were remarkable for a total serum protein at 14 g/dL. Albumin was 3.4 g/dL. Globulin fraction was not able to be determined. The remainder the chemistries were unremarkable and specifically the serum creatinine was 0.9. CBC was repeated on 07/22/2016 the hemoglobin was 8.5 g/dL. Again the total white count differential were normal. Platelet count 135,000 serum protein 14.1 g/dL. Globulin fraction was noted to be outside the reportable range. He was admitted to [facility] the first week of August. He had significant anemia and received a 2 unit red blood cell transfusion. He underwent EGD and colonoscopy. 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 Most significantly he had been having epistaxis in the few weeks prior to presentaton. This required packing. He also underwent a cauterization sometime in the last week or so but had significant right-sided epistaxis before coming in today. He is not on anticoagulation. He denies other bleeding problems. Previous therapy: 1) VCd x8 cycles. 2) Vd x2 cycles. Current therapy: 1) RVd. to begin lenalidomide tomorrow. Presents for ongoing hematologic management. Interim history: Has been tolerating treatment symptomatically very well. The only concerning symptom is that he's been having lower extremity weakness. He has a hard time getting up on the exam table and recently bought a jetted tub and he finds that he cannot stand up to get out of the bathtub very well. He's not having any change and chronic pain of the legs (left knee) or symptoms that suggest a sensory neuropathy per se. Otherwise no cardiac symptoms including exertional chest pain/pressure or tightness. No palpitations. No lower extremity swelling or edema. No wheeze or cough. He is not short of breath at rest. He is not short of breath with walking. He doesn't exert himself harder than that. He had a nosebleed last night. This happens infrequently. He continues on low-dose aspirin and Plavix. PMH, medications and allergies as below personally reviewed by me today. Any changes documented in appropriate section. ROS: Constitutional: Denies episodes of fever. Normal appetite. Generalized fatigue. Neuro: See above. HEENT: No recent change in voice, vision or hearing. Resp: See above. CVS: Denies PND and orthopnea. GI: Denies symptoms of stomatitis. Denies dysphagia and odynophagia. Denies abdominal pain. : Denies dysuria or gross hematuria. No symptoms of bladder outlet obstruction. Endo: Denies hot flashes. Denies polyuria and polydipsia. Denies heat and cold intolerance. Musculoskeletal: Denies bone, joint and muscular pain. Stable lower back pain. Derm: Denies rash. Denies jaundice and diffuse pruritis. Heme: See above. Psych: Normal mood. PHYSICAL EXAM: Vitals: There were no vitals taken for this visit. Well-appearing and in no acute distress. EYES: Sclerae are anicteric bilaterally. NECK: Supple. LYMPHATIC: There is no palpable cervical, supraclavicular denopathy. RESPIRATORY: Inspiratory breath sounds are of normal intensity in all thakur. No rales, wheezes or rhonchi. CARDIOVASCULAR: Rhythm is regular. Normal intensity S1/S2. ABDOMEN: The abdomen is nondistended. No organomegaly. No tenderness. Extremities: Trace edema of distal LEs. SKIN: No rash. No petechiae. NEUROLOGIC: ore trimmer II-XII are grossly intact. No focal motor weakness--symmetric diffuse weakness of the legs. DTRs are symmetric and normal. MUSCULOSKELETAL: No muscle wasting. PATHOLOGY: BONE MARROW, ASPIRATE SMEARS, CORE BIOPSY, AND CLOT SECTION, WITH PERIPHERAL BLOOD SMEAR (A-C): - PLASMA CELL MYELOMA, KAPPA-MONOTYPIC (30% OF CELLULARITY). - NORMOCELLULAR MARROW (40%) WITH TRILINEAGE HEMATOPOIESIS. - NORMOCYTIC ANEMIA AND THROMBOCYTOPENIA. - DECREASED STORAGE IRON. - SEE COMMENT. ? ? ? COMMENT: The patient was recently found to have an IgG kappa paraprotein. Correlation with results of pending conventional cytogenetic analysis and fluorescence in situ hybridization studies is recommended. PERIPHERAL BLOOD: CBC ?(08/21/2016): ?WBC ? 6.44 ; ? Hgb ? 8.9 ; ? MCV ? 90.4 ; ? RDW ? 17.7 ; ? Plts ?119. Differential (%): ? ? ?Segs ? 56 ; ? Lymphs ? 40 ;?? Monos ? 4 ; ? Eos ? 0 ; ? Baso ?0. Morphology/Interpretation: ?Normocytic anemia with rouleaux formation. Thrombocytopenia. Red blood cell anisocytosis. BONE MARROW ASPIRATE: ? ?Normal % ? ?(0-2) ? ? 0 % ? Blasts ? ?(1-5) ? ? 0 % ? Promyelo ? ?(32-72) ?43 % ? Myelos/Metas/Bands/Segs ? ?(1-6) ? ? 1 % ? Eosinophils ? ?(0-1) ? ? 0 % ? Basophils ? ?(0-4) ? ? 1 % ? Monocytes ? ?(13-37) ?18 % ? Erythroid precursors ? ?(7-23) ? 15 % ? Lymphocytes ? ?(0-2) ? ?22 % ? Plasma cells ASSESSMENT/PLAN: (C90.00) Multiple myeloma not having achieved remission (HCC) (primary encounter diagnosis) (D75.9) Hyperviscosity Assessment: -IgG kappa multiple myeloma. -Symptomatic anemia presentation requiring transfusion. -He also had significantly elevated serum protein with some symptoms of hyperviscosity including epistaxis and previous GI bleeding. -He continues to tolerate bortezomib and dexamethasone well. Serum monoclonal protein is significantly lower but had now plateaued. Most recent eval showed small increase. -Plan to begin lenalidomide at start of tomorrow's cycle at 15 mg daily. Plan: -Continue bortezomib at previous dose reduction. -Begin lenalidomide tomorrow. -Continue dexamethasone 20 mg once a week when here for bortezomib. -Continue to monitor lower extremity symptoms and if worsen, dose reduce or omit dexamethasone. Supportive care: Hematology: Will monitor CBC and provide transfusional support as indicated--hasn't required transfusional support since initiating treatment for the myeloma. Renal: Normal creatinine at baseline--clinically no evidence for renal dysfunction. Infectious diseases: Continue prophylactic acyclovir. Musculoskeletal: Has h/o MS pain including chronic low back pain from injury at [employer] and left knee pain--stable. Bisphoshonates: No obvious lytic lesions at baseline evaluation and baseline DEXA showed normal bone density. This is in keeping with the [facility] care-path guidelines to hold on bisphosphonate therapy. Venous thromboembolism risk: He is currently on low dose ASA and Plavix. He will continue these medications. control counseling: Neurology: Baseline neuropathy stable. (E11.51) Type 2 diabetes mellitus with diabetic peripheral angiopathy without gangrene, unspecified custodial insulin use status (HCC) (I73.9) PAD (peripheral artery disease) ([facility]) -He will continue follow-up with his PCP for these issues. Robel Madden DO Referring Provider: ROBEL MADDEN [[id number]] Allergies As of Date: 07/24/2017 (No Known Allergies) Date Reviewed: 07/24/2017 Reviewed by: Holly Fish (Director Index) MADISON Patel - Fully Assessed Reason for Visit: Established Patient [175] Primary Visit Diagnosis:Multiple myeloma not having achieved remission ([facility]) [C90.00] Other Visit Diagnoses:Type 2 diabetes mellitus with diabetic peripheral angiopathy without gangrene, unspecified custodial insulin use status ([facility]) [E11.51] PAD (peripheral artery disease) ([facility]) [I73.9] Follow-up and Disposition History Recorded Prescriptions as of 07/24/2017 Sig: LENALIDOMIDE 15 MG CAPSULE Take 1 capsule by mouth once * CLOPIDOGREL 75 MG TABLET Take 75 mg by mouth once juan miguel* OXYBUTYNIN CHLORIDE ER 5 MG T* Take 5 mg by mouth once daily* PANTOPRAZOLE 40 MG TABLET,DEL* Take 40 mg by mouth once juan miguel* ACYCLOVIR 400 MG TABLET TAKE ONE TABLET BY MOUTH TWIC* DULCOLAX (BISACODYL) ORAL Take 1 tablet by mouth as nee* ONDANSETRON HCL 8 MG TABLET TAKE ONE TABLET BY MOUTH EVER* SENNOSIDES 8.6 MG-DOCUSATE SO* Take 1 tablet by mouth once d* VITAMINS AND MINERALS ORAL Take by mouth once daily. FUROSEMIDE 20 MG TABLET Take 20 mg by mouth once juan miguel* GLUCOTROL XL 10 MG TABLET,EXT* 10 mg once daily. HYDROCODONE 10 MG-ACETAMINOPH* Take 1 tablet by mouth every * TAMSULOSIN 0.4 MG CAPSULE Take 0.4 mg by mouth once donna* VYTORIN 10 MG-80 MG TABLET daily at bedtime. * AMLODIPINE 10 MG-BENAZEPRIL 2* Take one(1) tablet daily. * PIOGLITAZONE 45 MG TABLET Take one(1) tablet daily. * VALSARTAN 320 MG-HYDROCHLOROT* Take one(1) tablet daily. * ASPIRIN 81 MG CHEWABLE TABLET Take one(1) tablet daily. * GABAPENTIN 100 MG CAPSULE Take one(1) tablet 2-3 times * Problem List As Of Date 07/24/2017 Noted Resolved Hypertension [I10] INVALID FOR* Hypercholesteremia [E78.00] INVALID FOR* PAD (peripheral artery disease) [I73.9] INVALID FOR* Nevus [D22.9] INVALID FOR*09/06/2016 Multiple myeloma not having achieved remission *INVALID FOR* 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 FOR* Visit Notes: >> Holly Fish (Director Index) MADISON Patel Suzy Jul 24, 2017 3:46 PM Status: Signed Est pt, discuss recent labs results, chemo tomorrow Holly Patel LPN Encounter Status:Closed by ROBEL MADDEN DO on 07/24/17 PROGRESS Observed: 07/24/2017 Status: COMPLETED Source: [place] 3:56 PM [facility] REPOSITORY [facility] ID: [id number] Author: Robel Madden Service: (none) Author Type: Physician Type: Progress Notes Filed: 07/24/2017 4:31 PM Note Text: Diagnosis: 1) Multiple myeloma. Baseline assessment on initial diagnosis: IMWG criteria, [place] Journal of Haematology 121: 749?57, 2003, update in: Júnior et al. Leukemia 20: 1467-73, 2006 and at IMW meeting Jaye 2010 ? Symptomatic multiple myeloma: IgG kappa. ? Related Organ or Tissue Involvement (CRAB) or other Myeloma Defining Event (MDE): Anemia requiring transfusion. Otherwise, baseline bone survey 09/04/2016 revealed no lytic lesions. Baseline serum calcium, ionized value 1.2 mmol per liter. Baseline serum creatinine 1.2 mg/dL. ? Antecedent plasma cell dyscrasia: None known. ? Myeloma FISH panel: 13q14 (RB1): ? ? 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 ?Normal pattern 14q32 (IGH): ? ? 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 The translocation partner cannot be identified. These corresponds to standard risk disease. ? Cytogenetics: Pending. ? LDH: 210 (135-225 U/L) ? ISS stage: B2M not drawn. ? [place] Durie Stage: III (anemia with Hgb < 8.5 g/dL) ? Monoclonal proteins at diagnosis: Serum M-spike: 7.5 gm/dL, Involved serum free light chains: shyce=3045.0 mg/L, Uninvolved serum free light chains: lambda= 5.8 mg/L. ? Bone marrow plasma cell infiltration: 22%. HPI: The patient is a 77 yo male with PMH significant for CAD, PVD, HTN and DM2. The patient had a CBC done on 01/23/2016. At that time the white count was 6300. Hemoglobin was 10.6 g/dL and the platelet count 179,000. Chemistries at that time included a basic metabolic profile that showed a creatinine of 1.0 mg/dL. Patient had repeat CBC on 07/12/2016. The hemoglobin was noted to be 8.7 g/dL. The total white count was 6600. The differential was unremarkable. Platelet count 134,000. Chemistries were remarkable for a total serum protein at 14 g/dL. Albumin was 3.4 g/dL. Globulin fraction was not able to be determined. The remainder the chemistries were unremarkable and specifically the serum creatinine was 0.9. CBC was repeated on 07/22/2016 the hemoglobin was 8.5 g/dL. Again the total white count differential were normal. Platelet count 135,000 serum protein 14.1 g/dL. Globulin fraction was noted to be outside the reportable range. He was admitted to [facility] the first week of August. He had significant anemia and received a 2 unit red blood cell transfusion. He underwent EGD and colonoscopy. 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 Most significantly he had been having epistaxis in the few weeks prior to presentaton. This required packing. He also underwent a cauterization sometime in the last week or so but had significant right- sided epistaxis before coming in today. He is not on anticoagulation. He denies other bleeding problems. Previous therapy: 1) VCd x8 cycles. 2) Vd x2 cycles. Current therapy: 1) RVd. to begin lenalidomide tomorrow. Presents for ongoing hematologic management. Interim history: Has been tolerating treatment symptomatically very well. The only concerning symptom is that he's been having lower extremity weakness. He has a hard time getting up on the exam table and recently bought a jetted tub and he finds that he cannot stand up to get out of the bathtub very well. He's not having any change and chronic pain of the legs (left knee) or symptoms that suggest a sensory neuropathy per se. Otherwise no cardiac symptoms including exertional chest pain/pressure or tightness. No palpitations. No lower extremity swelling or edema. No wheeze or cough. He is not short of breath at rest. He is not short of breath with walking. He doesn't exert himself harder than that. He had a nosebleed last night. This happens infrequently. He continues on low-dose aspirin and Plavix. PMH, medications and allergies as below personally reviewed by me today. Any changes documented in appropriate section. ROS: Constitutional: Denies episodes of fever. Normal appetite. Generalized fatigue. Neuro: See above. HEENT: No recent change in voice, vision or hearing. Resp: See above. CVS: Denies PND and orthopnea. GI: Denies symptoms of stomatitis. Denies dysphagia and odynophagia. Denies abdominal pain. : Denies dysuria or gross hematuria. No symptoms of bladder outlet obstruction. Endo: Denies hot flashes. Denies polyuria and polydipsia. Denies heat and cold intolerance. Musculoskeletal: Denies bone, joint and muscular pain. Stable lower back pain. Derm: Denies rash. Denies jaundice and diffuse pruritis. Heme: See above. Psych: Normal mood. PHYSICAL EXAM: Vitals: There were no vitals taken for this visit. Well-appearing and in no acute distress. EYES: Sclerae are anicteric bilaterally. NECK: Supple. LYMPHATIC: There is no palpable cervical, supraclavicular denopathy. RESPIRATORY: Inspiratory breath sounds are of normal intensity in all thakur. No rales, wheezes or rhonchi. CARDIOVASCULAR: Rhythm is regular. Normal intensity S1/S2. ABDOMEN: The abdomen is nondistended. No organomegaly. No tenderness. Extremities: Trace edema of distal LEs. SKIN: No rash. No petechiae. NEUROLOGIC: ore trimmer II-XII are grossly intact. No focal motor weakness--symmetric diffuse weakness of the legs. DTRs are symmetric and normal. MUSCULOSKELETAL: No muscle wasting. PATHOLOGY: BONE MARROW, ASPIRATE SMEARS, CORE BIOPSY, AND CLOT SECTION, WITH PERIPHERAL BLOOD SMEAR (A-C): - PLASMA CELL MYELOMA, KAPPA-MONOTYPIC (30% OF CELLULARITY). - NORMOCELLULAR MARROW (40%) WITH TRILINEAGE HEMATOPOIESIS. - NORMOCYTIC ANEMIA AND THROMBOCYTOPENIA. - DECREASED STORAGE IRON. - SEE COMMENT. ? ? ? COMMENT: The patient was recently found to have an IgG kappa paraprotein. Correlation with results of pending conventional cytogenetic analysis and fluorescence in situ hybridization studies is recommended. PERIPHERAL BLOOD: CBC ?(08/21/2016): ?WBC ? 6.44 ; ? Hgb ? 8.9 ; ? MCV ? 90.4 ; ? RDW ? 17.7 ; ? Plts ?119. Differential (%): ? ? ?Segs ? 56 ; ? Lymphs ? 40 ;?? Monos ? 4 ; ? Eos ? 0 ; ? Baso ?0. Morphology/Interpretation: ?Normocytic anemia with rouleaux formation. Thrombocytopenia. Red blood cell anisocytosis. BONE MARROW ASPIRATE: ? ?Normal % ? ?(0-2) ? ? 0 % ? Blasts ? ?(1-5) ? ? 0 % ? Promyelo ? ?(32-72) ?43 % ? Myelos/Metas/Bands/Segs ? ?(1-6) ? ? 1 % ? Eosinophils ? ?(0-1) ? ? 0 % ? Basophils ? ?(0-4) ? ? 1 % ? Monocytes ? ?(13-37) ?18 % ? Erythroid precursors ? ?(7-23) ? 15 % ? Lymphocytes ? ?(0-2) ? ?22 % ? Plasma cells ASSESSMENT/PLAN: (C90.00) Multiple myeloma not having achieved remission (HCC) (primary encounter diagnosis) (D75.9) Hyperviscosity Assessment: -IgG kappa multiple myeloma. -Symptomatic anemia presentation requiring transfusion. -He also had significantly elevated serum protein with some symptoms of hyperviscosity including epistaxis and previous GI bleeding. -He continues to tolerate bortezomib and dexamethasone well. Serum monoclonal protein is significantly lower but had now plateaued. Most recent eval showed small increase. -Plan to begin lenalidomide at start of tomorrow's cycle at 15 mg daily. Plan: -Continue bortezomib at previous dose reduction. -Begin lenalidomide tomorrow. -Continue dexamethasone 20 mg once a week when here for bortezomib. -Continue to monitor lower extremity symptoms and if worsen, dose reduce or omit dexamethasone. Supportive care: Hematology: Will monitor CBC and provide transfusional support as indicated--hasn't required transfusional support since initiating treatment for the myeloma. Renal: Normal creatinine at baseline--clinically no evidence for renal dysfunction. Infectious diseases: Continue prophylactic acyclovir. Musculoskeletal: Has h/o MS pain including chronic low back pain from injury at [employer] and left knee pain--stable. Bisphoshonates: No obvious lytic lesions at baseline evaluation and baseline DEXA showed normal bone density. This is in keeping with the [facility] care-path guidelines to hold on bisphosphonate therapy. Venous thromboembolism risk: He is currently on low dose ASA and Plavix. He will continue these medications. control counseling: Neurology: Baseline neuropathy stable. (E11.51) Type 2 diabetes mellitus with diabetic peripheral angiopathy without gangrene, unspecified rat exterminator insulin use status (HCC) (I73.9) PAD (peripheral artery disease) ([facility]) -He will continue follow-up with his PCP for these issues. Robel Madden DO COMP METABOLIC PANEL Collected: 07/24/2017 Status: F Source: [place] 3:39 PM [facility] REPOSITORY TYPE CODE TESTS RESULT OUT OF REFERENCE UNITS RANGE LAB TP 6.3-8.0 g/dL Protein, Total 7.3 LAB ALB 3.9-4.9 g/dL Albumin 4.1 LAB CA 8.5-10.2 mg/dL Calcium, Total 9.6 LAB TBIL 0.2-1.3 mg/dL Bilirubin, Total 0.2 LAB ALKP 36-108 U/L Alkaline Phosphatase 72 LAB AST 14-40 U/L AST 18 LAB GLU 74-99 mg/dL Glucose High 287 Result Comment: The [place] Diabetes Association (ADA) provides guidance for cutoff values for fasting glucose and random glucose. The ADA defines fasting as no caloric intake for at least 8 hours. Fas ting plasma glucose results between 100 to 125 mg/dL indicate increased risk for diabetes (prediabetes). Fasting plasma glucose results greater than or equal to 126 mg/dL meet the criteria for diagnosis of diabetes. In the absence of unequivocal hyperglycemia, results should be confirmed by repeat testing. In a patient with classic symptoms of hyperglycemia or hyperglycemic crisis, random plasma glucose results greater than or equal to 200 mg/dL meet the criteria for diagnosis of diabetes. Reference: Standards of Medical Care in Diabetes 2016, [place] [employer] Association. Diabetes Care. 2016.39(Suppl 1). LAB BUN 9-24 mg/dL BUN 13 LAB CRET 0.73-1.22 mg/dL Creatinine 1.06 LAB NA 136-144 mmol/L Sodium Low 132 LAB K 3.7-5.1 mmol/L Potassium 4.0 LAB CL 97-105 mmol/L Chloride Low 93 LAB CO2 22-30 mmol/L CO2 23 LAB AGAP 9-18 mmol/L Anion Gap 16 LAB ALT 10-54 U/L ALT 15 LAB GFRAA eGFR- Amer. >60 LAB GFRNAA . eGFR-All Other Races >60 Result Comment: eGFR (Estimated GFR) Units of measure: mL/min/1.73 meters squared eGFR is derived from the reexpressed MDRD Study equation using the following parameters: serum creatinine, age, gender and race. The creatinine assay has been calibrated to be traceable to IDMS. An eGFR <60 mL/min/1.73m2 for >3 months is consistent with chronic kidney disease. Refer to KDOQI guidelines for clinical interpretation. In patients with unstable renal function, e.g. those with acute kidney injury, the eGFR may not accurately reflect actual GFR. Performed By: #### CMP, B2M, KLFRS, MPASRM, SEPG #### [facility] [address] [place], [place] [address] B2 MICROGLOBULIN Collected: 07/24/2017 Status: F Source: [place] 3:39 PM [facility] REPOSITORY TYPE CODE TESTS RESULT OUT OF REFERENCE UNITS RANGE LAB B2M 0.8-2.2 mg/L B2 Microglobulin High 2.3 Performed By: #### CMP, B2M, KLFRS, MPASRM, SEPG #### [facility] [address] [place], [place] [address] KAPPA/MILLER,FREE,SER Collected: Status: F Source: [place] 07/24/2017 3:39 PM [facility] REPOSITORY TYPE CODE TESTS RESULT OUT OF REFERENCE UNITS RANGE LAB FKAPS 3.30-19.40 mg/L High [place], 39.7 Free, Serum Result Comment: Rarely, increased serum free light chains values may not be detected due to antigen excess phenomenon. Results should always be correlated with other laboratory results and clinical findings. LAB FLAMS 5.7-26.3 mg/L Lambda, Free, 10.1 Serum Result Comment: Rarely, increased serum free light chains values may not be detected due to antigen excess phenomenon. Results should always be correlated with other laboratory results and clinical findings. LAB KLRAT 0.26-1.65 High K/L Ratio, 3.93 Serum Performed By: #### CMP, B2M, KLFRS, MPASRM, SEPG #### [facility] [address] [place], [place] [address] MONOCLONL PROTEIN,BL Collected: 07/24/2017 Status: F Source: [place] 3:39 PM [facility] REPOSITORY TYPE CODE TESTS RESULT OUT OF RANGE REFERENCE UNITS LAB MPAIGG 717-1411 mg/dL MPA Serum IgG 1280 LAB MPAIGA 78-391 mg/dL MPA Serum IgA 90 LAB MPAIGM 53-334 mg/dL Low MPA Serum IgM 12 LAB MPAK 534-1267 mg/dL High Serum [place] 1570 LAB MPAL 253-653 mg/dL Low Serum Lambda 204 LAB MPAKL 1-3 High MPA Juan Ramon/Bentley Ratio 7.70 LAB MPAR No M protein is MPA Result Abnormal identified. M protein Alert is present. LAB INTP MPA Interpretation SEE COMMENT Result Comment: Atypical restricted bands are present in the IgG and kappa regions. Consistent with IgG kappa monoclonal gammopathy. LAB MPASTF Staff Reviewed by Review Russell Carrera M.D., PhD ([id number]) Performed By: #### CMP, B2M, KLFRS, MPASRM, SEPG #### [facility] [address], [place] [address] PROTEIN ELECTROPHOR. Collected: 07/24/2017 Status: F Source: [place] 3:39 PM [facility] REPOSITORY TYPE CODE TESTS RESULT OUT OF REFERENCE UNITS RANGE LAB TPSPE 6.0-8.4 g/dL Total Protein, SPE 7.0 LAB ALBE 3.37-4.23 gm/dL Albumin 3.73 LAB A1GL 0.18-0.31 gm/dL Alpha 1 Globulin 0.26 LAB A2GL 0.52-0.97 gm/dL Alpha 2 Globulin 0.92 LAB BEGL 0.84-1.36 gm/dL Beta Globulin 0.93 LAB GAGL 0.70-1.44 gm/dL Gamma Globulin 1.17 LAB SPEINT Interpretation SEE COMMENT Result Comment: An M protein is identified on protein electrophoresis. See separate immunofixation report for characterization of the M protein. LAB LOC M Protein Gamma Location fraction LAB GPERDL 0.00 gm/dL M Cesar 0.62 High Concentratn LAB SPESTF SPE Staff Review Reviewed by Russell Carrera M.D., PhD ([id number]) Performed By: #### CMP, B2M, KLFRS, MPASRM, SEPG #### [facility] [address] [place], [place] [address] [place] ABS GR + CBC Collected: 07/24/2017 Status: F Source: [place] 3:38 PM [facility] REPOSITORY TYPE CODE TESTS RESULT OUT OF REFERENCE UNITS RANGE LAB WWBC 3.70-11.00 k/uL [place] WBC 7.42 LAB WRBC 4.20-6.00 m/uL Low [place] RBC 3.20 LAB WHGB 13.0-17.0 g/dL Low [place] Hemoglobin 9.9 LAB WHCT 39.0-51.0 % Low [place] Hematocrit 30.3 LAB WMCV 80.0-100.0 fL [place] MCV 94.7 LAB WMCH 26.0-34.0 pg [place] MCH 30.9 LAB WMCHC 30.5-36.0 g/dL [place] MCHC 32.7 LAB WRDW 11.5-15.0 % [place] High RDW 15.2 LAB WPLT 150-400 k/uL [place] Platelet Cnt 212 LAB WMPV 9.0-12.7 fL [place] MPV 10.2 Result Comment: Test performed at: [facility] [place], [address] [place] [address] [address] [place] [address]. LAB ABGRAN 1.45-7.50 k/uL Absol Gran 5.08 Count [place] ABS GR + CBC Collected: 07/11/2017 Status: F Source: [place] 2:17 PM [facility] REPOSITORY TYPE CODE TESTS RESULT OUT OF REFERENCE UNITS RANGE LAB WWBC 3.70-11.00 k/uL [place] WBC 9.20 LAB WRBC 4.20-6.00 m/uL Low [place] RBC 3.23 LAB WHGB 13.0-17.0 g/dL Low [place] Hemoglobin 10.1 LAB WHCT 39.0-51.0 % Low [place] Hematocrit 30.2 LAB WMCV 80.0-100.0 fL [place] MCV 93.5 LAB WMCH 26.0-34.0 pg [place] MCH 31.3 LAB WMCHC 30.5-36.0 g/dL [place] MCHC 33.4 LAB WRDW 11.5-15.0 % [place] High RDW 15.4 LAB WPLT 150-400 k/uL [place] Platelet Cnt 196 LAB WMPV 9.0-12.7 fL [place] MPV 10.1 Result Comment: Test performed at: [facility], [address] [place] [address] [address] [place] [address]. LAB ABGRAN 1.45-7.50 k/uL Absol Gran 6.45 Count [place] ABS GR + CBC Collected: 07/04/2017 Status: F Source: [place] 3:06 PM [facility] REPOSITORY TYPE CODE TESTS RESULT OUT OF REFERENCE UNITS RANGE LAB WWBC 3.70-11.00 k/uL [place] WBC 7.34 LAB WRBC 4.20-6.00 m/uL Low [place] RBC 3.21 LAB WHGB 13.0-17.0 g/dL Low [place] Hemoglobin 10.0 LAB WHCT 39.0-51.0 % Low [place] Hematocrit 30.2 LAB WMCV 80.0-100.0 fL [place] MCV 94.1 LAB WMCH 26.0-34.0 pg [place] MCH 31.2 LAB WMCHC 30.5-36.0 g/dL [place] MCHC 33.1 LAB WRDW 11.5-15.0 % [place] High RDW 15.6 LAB WPLT 150-400 k/uL [place] Platelet Cnt 216 LAB WMPV 9.0-12.7 fL [place] MPV 10.3 Result Comment: Test performed at: [facility] [place], [address] [place] [address]. LAB ABGRAN 1.45-7.50 k/uL Absol Gran 4.79 Count HOSP Observed: 07/02/2017 Status: COMPLETED Source: [place] 12:00 AM [facility] REPOSITORY Patient Update (HEMAWS) GLENDY FLORES JR. ([id number]) 1940 M Date Time Provider Department 07/02/17 ROBEL MADDEN During your visit today, we recorded the following information about you: Ursula Lazcano RN, RN 07/02/2017 5:23 PM Signed Per [facility] nurse [place]- approval for Revlam[facility]- # [id number]- start 07/02/17- exp 06/24/2018. Ursula Lazcano RN Allergies As of Date: 07/02/2017 (No Known Allergies) Date Reviewed: 06/25/2017 Reviewed by: Carmela Kelly - Fully Assessed Reason for Visit: INSURANCE APPROVAL- REVLAMID [Other] Prescriptions as of 07/02/2017 Sig: LENALIDOMIDE 15 MG CAPSULE Take 1 capsule by mouth once * CLOPIDOGREL 75 MG TABLET Take 75 mg by mouth once juan miguel* OXYBUTYNIN CHLORIDE ER 5 MG T* Take 5 mg by mouth once daily* PANTOPRAZOLE 40 MG TABLET,DEL* Take 40 mg by mouth once juan miguel* ACYCLOVIR 400 MG TABLET TAKE ONE TABLET BY MOUTH TWIC* DULCOLAX (BISACODYL) ORAL Take 1 tablet by mouth as nee* ONDANSETRON HCL 8 MG TABLET TAKE ONE TABLET BY MOUTH EVER* SENNOSIDES 8.6 MG-DOCUSATE SO* Take 1 tablet by mouth once d* VITAMINS AND MINERALS ORAL Take by mouth once daily. FERROUS SULFATE 325 MG (65 MG* Take 325 mg by mouth daily wi* FUROSEMIDE 20 MG TABLET Take 20 mg by mouth once juan miguel* GLUCOTROL XL 10 MG TABLET,EXT* 10 mg once daily. HYDROCODONE 10 MG-ACETAMINOPH* Take 1 tablet by mouth every * TAMSULOSIN 0.4 MG CAPSULE Take 0.4 mg by mouth once donna* VYTORIN 10 MG-80 MG TABLET daily at bedtime. * AMLODIPINE 10 MG-BENAZEPRIL 2* Take one(1) tablet daily. * PIOGLITAZONE 45 MG TABLET Take one(1) tablet daily. * VALSARTAN 320 MG-HYDROCHLOROT* Take one(1) tablet daily. * ASPIRIN 81 MG CHEWABLE TABLET Take one(1) tablet daily. * ZOLPIDEM ER 12.5 MG TABLET,EX* as needed * GABAPENTIN 100 MG CAPSULE Take one(1) tablet 2-3 times * Problem List As Of Date 07/02/2017 Noted Resolved Hypertension [I10] INVALID FOR* Hypercholesteremia [E78.00] INVALID FOR* PAD (peripheral artery disease) [I73.9] INVALID FOR* Nevus [D22.9] INVALID FOR*09/06/2016 Multiple myeloma not having achieved remission *INVALID FOR* 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 FOR* Visit Notes: >> Ursula (Josey) JOSEY Lazcano FriJul 02, 2017 5:22 PM Status: Signed Per [facility] nurse [place]- approval for Revlamid- # [id number]- start 07/02/17- exp 06/24/2018. Ursula Lazcano RN Encounter Status:Closed by URSULA LAZCANO on 07/02/17 PROGRESS Observed: 06/25/2017 Status: COMPLETED Source: [place] 11:14 AM [facility] REPOSITORY O ID: [id number] Author: Robel Madden Service: (none) Author Type: Physician Type: Progress Notes Filed: 06/25/2017 11:43 AM Note Text: Diagnosis: 1) Multiple myeloma. Baseline assessment on initial diagnosis: IMWG criteria, [place] Journal of Haematology 121: 749?57, 2003, update in: Júnior et al. Leukemia 20: 1467-73, 2006 and at IMW meeting Jaye 2010 ? Symptomatic multiple myeloma: IgG kappa. ? Related Organ or Tissue Involvement (CRAB) or other Myeloma Defining Event (MDE): Anemia requiring transfusion. Otherwise, baseline bone survey 09/04/2016 revealed no lytic lesions. Baseline serum calcium, ionized value 1.2 mmol per liter. Baseline serum creatinine 1.2 mg/dL. ? Antecedent plasma cell dyscrasia: None known. ? Myeloma FISH panel: 13q14 (RB1): ? ? 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 ?Normal pattern 14q32 (IGH): ? ? 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 The translocation partner cannot be identified. These corresponds to standard risk disease. ? Cytogenetics: Pending. ? LDH: 210 (135-225 U/L) ? ISS stage: B2M not drawn. ? [place] Dur[place] Stage: III (anemia with Hgb < 8.5 g/dL) ? Monoclonal proteins at diagnosis: Serum M-spike: 7.5 gm/dL, Involved serum free light chains: xtdok=3551.0 mg/L, Uninvolved serum free light chains: lambda= 5.8 mg/L. ? Bone marrow plasma cell infiltration: 22%. HPI: The patient is a 77 yo male with PMH significant for CAD, PVD, HTN and DM2. The patient had a CBC done on 01/23/2016. At that time the white count was 6300. Hemoglobin was 10.6 g/dL and the platelet count 179,000. Chemistries at that time included a basic metabolic profile that showed a creatinine of 1.0 mg/dL. Patient had repeat CBC on 07/12/2016. The hemoglobin was noted to be 8.7 g/dL. The total white count was 6600. The differential was unremarkable. Platelet count 134,000. Chemistries were remarkable for a total serum protein at 14 g/dL. Albumin was 3.4 g/dL. Globulin fraction was not able to be determined. The remainder the chemistries were unremarkable and specifically the serum creatinine was 0.9. CBC was repeated on 07/22/2016 the hemoglobin was 8.5 g/dL. Again the total white count differential were normal. Platelet count 135,000 serum protein 14.1 g/dL. Globulin fraction was noted to be outside the reportable range. He was admitted to [facility] the first week of August. He had significant anemia and received a 2 unit red blood cell transfusion. He underwent EGD and colonoscopy. 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 Most significantly he had been having epistaxis in the few weeks prior to presentaton. This required packing. He also underwent a cauterization sometime in the last week or so but had significant right- sided epistaxis before coming in today. He is not on anticoagulation. He denies other bleeding problems. Current therapy: 1) VCD. Presents for ongoing hematologic management. Interim history: His been feeling rather well in the last 2 months. He has not had any shortness of breath at rest or with moderate exertion. No chest pain, pressure or tightness. No lower Marcial swelling or edema. He has some pain on the lateral aspect of the left lower leg. He still getting intermittent night sweats and that is his only complaint. His appetite is good. He's had no unusual bleeding and/or unexplained bruising. No cough, sputum production or hemoptysis. Stable symptoms of mild peripheral neuropathy. PMH, medications and allergies as below personally reviewed by me today. Any changes documented in appropriate section. ROS: Constitutional: Denies episodes of fever. Neuro: See above. HEENT: No recent change in voice, vision or hearing. Resp: See above. CVS: Denies exertional chest pain, PND, orthopnea. GI: Denies symptoms of stomatitis. Denies dysphagia and odynophagia. Denies abdominal pain (sore from Velcade injections). : Denies dysuria or gross hematuria. No symptoms of bladder outlet obstruction. Endo: Denies hot flashes. Denies polyuria and polydipsia. Denies heat and cold intolerance. Musculoskeletal: Denies bone, joint and muscular pain. Stable lower back pain. Derm: Denies rash. Denies jaundice and diffuse pruritis. Heme: See above. Psych: Normal mood. PHYSICAL EXAM: Vitals: Blood pressure 160/71, pulse 82, temperature 37.2 ?C (98.9 ?F), temperature source Temporal Artery, weight 82.3 kg (181 lb 8 oz). Well-appearing and in no acute distress. EYES: Sclerae are anicteric bilaterally. NECK: Supple. No enlargement of thyroid. LYMPHATIC: There is no palpable cervical, supraclavicular adenopathy. RESPIRATORY: Inspiratory breath sounds are of normal intensity in all thakur. CVS: Regular on today's exam. ABDOMEN: The abdomen is nondistended. No organomegaly. EXTREMITIES: Trace pitting without swelling. PATHOLOGY: BONE MARROW, ASPIRATE SMEARS, CORE BIOPSY, AND CLOT SECTION, WITH PERIPHERAL BLOOD SMEAR (A-C): - PLASMA CELL MYELOMA, KAPPA-MONOTYPIC (30% OF CELLULARITY). - NORMOCELLULAR MARROW (40%) WITH TRILINEAGE HEMATOPOIESIS. - NORMOCYTIC ANEMIA AND THROMBOCYTOPENIA. - DECREASED STORAGE IRON. - SEE COMMENT. ? ? ? COMMENT: The patient was recently found to have an IgG kappa paraprotein. Correlation with results of pending conventional cytogenetic analysis and fluorescence in situ hybridization studies is recommended. PERIPHERAL BLOOD: CBC ?(08/21/2016): ?WBC ? 6.44 ; ? Hgb ? 8.9 ; ? MCV ? 90.4 ; ? RDW ? 17.7 ; ? Plts ?119. Differential (%): ? ? ?Segs ? 56 ; ? Lymphs ? 40 ;?? Monos ? 4 ; ? Eos ? 0 ; ? Baso ?0. Morphology/Interpretation: ?Normocytic anemia with rouleaux formation. Thrombocytopenia. Red blood cell anisocytosis. BONE MARROW ASPIRATE: ? ?Normal % ? ?(0-2) ? ? 0 % ? Blasts ? ?(1-5) ? ? 0 % ? Promyelo ? ?(32-72) ?43 % ? Myelos/Metas/Bands/Segs ? ?(1-6) ? ? 1 % ? Eosinophils ? ?(0-1) ? ? 0 % ? Basophils ? ?(0-4) ? ? 1 % ? Monocytes ? ?(13-37) ?18 % ? Erythroid precursors ? ?(7-23) ? 15 % ? Lymphocytes ? ?(0-2) ? ?22 % ? Plasma cells ASSESSMENT/PLAN: (C90.00) Multiple myeloma not having achieved remission (HCC) (primary encounter diagnosis) (D75.9) Hyperviscosity Assessment: -IgG kappa multiple myeloma. -Symptomatic anemia presentation requiring transfusion. -He also had significantly elevated serum protein with some symptoms of hyperviscosity including epistaxis and previous GI bleeding. -He continues to tolerate bortezomib and dexamethasone well. Serum monoclonal protein is significantly lower but has now plateaued. -I discussed the rationale, logistics, potential risks (including ), benefits and alternatives, as well as the personnel involved in the administration of lenalidomide. I answered his questions in detail and he verbalized understanding and agreed with the recommended therapy. -Plan to begin at 15 mg daily. Plan: -Continue bortezomib at previous dose reduction. -Begin lenalidomide when able. Supportive care: Hematology: Will monitor CBC and provide transfusional support as indicated--hasn't required transfusional support since initiating treatment for the myeloma. Renal: Normal creatinine at baseline--clinically no evidence for renal dysfunction. Infectious diseases: Continue prophylactic acyclovir. Musculoskeletal: Has h/o MS pain including chronic low back pain from injury at [employer] and left knee pain--stable. Bisphoshonates: No obvious lytic lesions at baseline evaluation and baseline DEXA showed normal bone density. This is in keeping with the [facility] care-path guidelines to hold on bisphosphonate therapy. Venous thromboembolism risk: He is currently on low dose ASA and Plavix. He will continue these medications. control counseling: N/A. Neurology: Baseline neuropathy stable. Robel Madden DO CNOVSP Observed: 06/25/2017 Status: COMPLETED Source: [place] 11:10 AM [facility] REPOSITORY Visit (SP) Office (ZOIE) GLENDY FLORES JR. ([id number]) 1940 M Date Time Provider Department 06/25/17 11:10 AM MASCI, ROBEL A HEMAWS During your visit today, we recorded the following information about you: Temperature Pulse Blood pressure Weight 98.9 degrees 82/minute 160/71 82.3 kg Robel MaddenDO 06/25/2017 11:43 AM Signed Diagnosis: 1) Multiple myeloma. Baseline assessment on initial diagnosis: IMWG criteria, [place] Journal of Haematology 121: 749?57, 2003, update in: Júnior et al. Leukemia 20: 1467-73, 2006 and at IMW meeting Jaye 2010 ? Symptomatic multiple myeloma: IgG kappa. ? Related Organ or Tissue Involvement (CRAB) or other Myeloma Defining Event (MDE): Anemia requiring transfusion. Otherwise, baseline bone survey 09/04/2016 revealed no lytic lesions. Baseline serum calcium, ionized value 1.2 mmol per liter. Baseline serum creatinine 1.2 mg/dL. ? Antecedent plasma cell dyscrasia: None known. ? Myeloma FISH panel: 13q14 (RB1): ? ? 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 ?Normal pattern 14q32 (IGH): ? ? 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 The translocation partner cannot be identified. These corresponds to standard risk disease. ? Cytogenetics: Pending. ? LDH: 210 (135-225 U/L) ? ISS stage: B2M not drawn. ? [place] Stage: III (anemia with Hgb ANDlt; 8.5 g/dL) ? Monoclonal proteins at diagnosis: Serum M-spike: 7.5 gm/dL, Involved serum free light chains: gkhid=4469.0 mg/L, Uninvolved serum free light chains: lambda= 5.8 mg/L. ? Bone marrow plasma cell infiltration: 22%. HPI: The patient is a 77 yo male with PMH significant for CAD, PVD, HTN and DM2. The patient had a CBC done on 01/23/2016. At that time the white count was 6300. Hemoglobin was 10.6 g/dL and the platelet count 179,000. Chemistries at that time included a basic metabolic profile that showed a creatinine of 1.0 mg/dL. Patient had repeat CBC on 07/12/2016. The hemoglobin was noted to be 8.7 g/dL. The total white count was 6600. The differential was unremarkable. Platelet count 134,000. Chemistries were remarkable for a total serum protein at 14 g/dL. Albumin was 3.4 g/dL. Globulin fraction was not able to be determined. The remainder the chemistries were unremarkable and specifically the serum creatinine was 0.9. CBC was repeated on 07/22/2016 the hemoglobin was 8.5 g/dL. Again the total white count differential were normal. Platelet count 135,000 serum protein 14.1 g/dL. Globulin fraction was noted to be outside the reportable range. He was admitted to [facility] the first week of August. He had significant anemia and received a 2 unit red blood cell transfusion. He underwent EGD and colonoscopy. 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 Most significantly he had been having epistaxis in the few weeks prior to presentaton. This required packing. He also underwent a cauterization sometime in the last week or so but had significant right-sided epistaxis before coming in today. He is not on anticoagulation. He denies other bleeding problems. Current therapy: 1) VCD. Presents for ongoing hematologic management. Interim history: His been feeling rather well in the last 2 months. He has not had any shortness of breath at rest or with moderate exertion. No chest pain, pressure or tightness. No lower Marcial swelling or edema. He has some pain on the lateral aspect of the left lower leg. He still getting intermittent night sweats and that is his only complaint. His appetite is good. He's had no unusual bleeding and/or unexplained bruising. No cough, sputum production or hemoptysis. Stable symptoms of mild peripheral neuropathy. PMH, medications and allergies as below personally reviewed by me today. Any changes documented in appropriate section. ROS: Constitutional: Denies episodes of fever. Neuro: See above. HEENT: No recent change in voice, vision or hearing. Resp: See above. CVS: Denies exertional chest pain, PND, orthopnea. GI: Denies symptoms of stomatitis. Denies dysphagia and odynophagia. Denies abdominal pain (sore from Velcade injections). : Denies dysuria or gross hematuria. No symptoms of bladder outlet obstruction. Endo: Denies hot flashes. Denies polyuria and polydipsia. Denies heat and cold intolerance. Musculoskeletal: Denies bone, joint and muscular pain. Stable lower back pain. Derm: Denies rash. Denies jaundice and diffuse pruritis. Heme: See above. Psych: Normal mood. PHYSICAL EXAM: Vitals: Blood pressure 160/71, pulse 82, temperature 37.2 ?C (98.9 ?F), temperature source Temporal Artery, weight 82.3 kg (181 lb 8 oz). Well-appearing and in no acute distress. EYES: Sclerae are anicteric bilaterally. NECK: Supple. No enlargement of thyroid. LYMPHATIC: There is no palpable cervical, supraclavicular adenopathy. RESPIRATORY: Inspiratory breath sounds are of normal intensity in all thakur. CVS: Regular on today's exam. ABDOMEN: The abdomen is nondistended. No organomegaly. EXTREMITIES: Trace pitting without swelling. PATHOLOGY: BONE MARROW, ASPIRATE SMEARS, CORE BIOPSY, AND CLOT SECTION, WITH PERIPHERAL BLOOD SMEAR (A-C): - PLASMA CELL MYELOMA, KAPPA-MONOTYPIC (30% OF CELLULARITY). - NORMOCELLULAR MARROW (40%) WITH TRILINEAGE HEMATOPOIESIS. - NORMOCYTIC ANEMIA AND THROMBOCYTOPENIA. - DECREASED STORAGE IRON. - SEE COMMENT. ? ? ? COMMENT: The patient was recently found to have an IgG kappa paraprotein. Correlation with results of pending conventional cytogenetic analysis and fluorescence in situ hybridization studies is recommended. PERIPHERAL BLOOD: CBC ?(08/21/2016): ?WBC ? 6.44 ; ? Hgb ? 8.9 ; ? MCV ? 90.4 ; ? RDW ? 17.7 ; ? Plts ?119. Differential (%): ? ? ?Segs ? 56 ; ? Lymphs ? 40 ;?? Monos ? 4 ; ? Eos ? 0 ; ? Baso ?0. Morphology/Interpretation: ?Normocytic anemia with rouleaux formation. Thrombocytopenia. Red blood cell anisocytosis. BONE MARROW ASPIRATE: ? ?Normal % ? ?(0-2) ? ? 0 % ? Blasts ? ?(1-5) ? ? 0 % ? Promyelo ? ?(32-72) ?43 % ? Myelos/Metas/Bands/Segs ? ?(1-6) ? ? 1 % ? Eosinophils ? ?(0-1) ? ? 0 % ? Basophils ? ?(0-4) ? ? 1 % ? Monocytes ? ?(13-37) ?18 % ? Erythroid precursors ? ?(7-23) ? 15 % ? Lymphocytes ? ?(0-2) ? ?22 % ? Plasma cells ASSESSMENT/PLAN: (C90.00) Multiple myeloma not having achieved remission (HCC) (primary encounter diagnosis) (D75.9) Hyperviscosity Assessment: -IgG kappa multiple myeloma. -Symptomatic anemia presentation requiring transfusion. -He also had significantly elevated serum protein with some symptoms of hyperviscosity including epistaxis and previous GI bleeding. -He continues to tolerate bortezomib and dexamethasone well. Serum monoclonal protein is significantly lower but has now plateaued. -I discussed the rationale, logistics, potential risks (including ), benefits and alternatives, as well as the personnel involved in the administration of lenalidomide. I answered his questions in detail and he verbalized understanding and agreed with the recommended therapy. -Plan to begin at 15 mg daily. Plan: -Continue bortezomib at previous dose reduction. -Begin lenalidomide when able. Supportive care: Hematology: Will monitor CBC and provide transfusional support as indicated--hasn't required transfusional support since initiating treatment for the myeloma. Renal: Normal creatinine at baseline--clinically no evidence for renal dysfunction. Infectious diseases: Continue prophylactic acyclovir. Musculoskeletal: Has h/o MS pain including chronic low back pain from injury at [employer] and left knee pain--stable. Bisphoshonates: No obvious lytic lesions at baseline evaluation and baseline DEXA showed normal bone density. This is in keeping with the [facility] care-path guidelines to hold on bisphosphonate therapy. Venous thromboembolism risk: He is currently on low dose ASA and Plavix. He will continue these medications. control counseling: N/A. Neurology: Baseline neuropathy stable. Robel Madden DO Referring Provider: ROBEL MADDEN [[id number]] Allergies As of Date: 06/25/2017 (No Known Allergies) Date Reviewed: 06/25/2017 Reviewed by: Carmela Kelly - Fully Assessed Reason for Visit: Established Patient [175] Primary Visit Diagnosis:Multiple myeloma not having achieved remission (HCC) [C90.00] Order(s):lenalidomide (REVLIMID) 15 mg capsuleTake 1 capsule by mouth once daily. for 3 weeks then off 1 week.Disp: 21 capsuleRfl: 5 Follow-up and Disposition History Recorded Prescriptions as of 06/25/2017 Sig: CLOPIDOGREL 75 MG TABLET Take 75 mg by mouth once juan miguel* OXYBUTYNIN CHLORIDE ER 5 MG T* Take 5 mg by mouth once daily* PANTOPRAZOLE 40 MG TABLET,DEL* Take 40 mg by mouth once juan miguel* ACYCLOVIR 400 MG TABLET TAKE ONE TABLET BY MOUTH TWIC* DULCOLAX (BISACODYL) ORAL Take 1 tablet by mouth as nee* ONDANSETRON HCL 8 MG TABLET TAKE ONE TABLET BY MOUTH EVER* SENNOSIDES 8.6 MG-DOCUSATE SO* Take 1 tablet by mouth once d* VITAMINS AND MINERALS ORAL Take by mouth once daily. FERROUS SULFATE 325 MG (65 MG* Take 325 mg by mouth daily wi* FUROSEMIDE 20 MG TABLET Take 20 mg by mouth once juan miguel* GLUCOTROL XL 10 MG TABLET,EXT* 10 mg once daily. HYDROCODONE 10 MG-ACETAMINOPH* Take 1 tablet by mouth every * TAMSULOSIN 0.4 MG CAPSULE Take 0.4 mg by mouth once donna* VYTORIN 10 MG-80 MG TABLET daily at bedtime. * AMLODIPINE 10 MG-BENAZEPRIL 2* Take one(1) tablet daily. * PIOGLITAZONE 45 MG TABLET Take one(1) tablet daily. * VALSARTAN 320 MG-HYDROCHLOROT* Take one(1) tablet daily. * ASPIRIN 81 MG CHEWABLE TABLET Take one(1) tablet daily. * ZOLPIDEM ER 12.5 MG TABLET,EX* as needed * GABAPENTIN 100 MG CAPSULE Take one(1) tablet 2-3 times * LENALIDOMIDE 15 MG CAPSULE Take 1 capsule by mouth once * Medication notes this encounter SENNOSIDES 8.6 MG-DOCUSATE SODIUM 50 MG TABLET >> Carmela Kelly MA 06/25/2017 11:02 AM >> CARMELA KELLY MA FriJun 25, 2017 11:02 AM as necessary Problem List As Of Date 06/25/2017 Noted Resolved Hypertension [I10] INVALID FOR* Hypercholesteremia [E78.00] INVALID FOR* PAD (peripheral artery disease) [I73.9] INVALID FOR* Nevus [D22.9] INVALID FOR*09/06/2016 Multiple myeloma not having achieved remission *INVALID FOR* 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 FOR* Encounter Status:Closed by ROBEL MADDEN DO on 06/25/17 B2 MICROGLOBULIN Collected: 06/25/2017 Status: F Source: [place] 11:04 AM [facility] REPOSITORY TYPE CODE TESTS RESULT OUT OF REFERENCE UNITS RANGE LAB B2M 0.8-2.2 mg/L B2 Microglobulin 2.2 Performed By: #### B2M, CMP, KLFRS, SEPG, MPASRM #### [facility] [address] [address] COMP METABOLIC PANEL Collected: 06/25/2017 Status: F Source: [place] 11:04 AM [facility] REPOSITORY TYPE CODE TESTS RESULT OUT OF REFERENCE UNITS RANGE LAB TP 6.3-8.0 g/dL Protein, Total 7.4 LAB ALB 3.9-4.9 g/dL Albumin 4.2 LAB CA 8.5-10.2 mg/dL Calcium, Total 9.4 LAB TBIL 0.2-1.3 mg/dL Low Bilirubin, Total <0.2 LAB ALKP 36-108 U/L Alkaline Phosphatase 75 LAB AST 14-40 U/L AST 20 LAB GLU 74-99 mg/dL Glucose High 199 Result Comment: The [place] [employer] (ADA) provides guidance for cutoff values for fasting glucose and random glucose. The ADA defines fasting as no caloric intake for at least 8 hours. Fas ting plasma glucose results between 100 to 125 mg/dL indicate increased risk for diabetes (prediabetes). Fasting plasma glucose results greater than or equal to 126 mg/dL meet the criteria for diagnosis of diabetes. In the absence of unequivocal hyperglycemia, results should be confirmed by repeat testing. In a patient with classic symptoms of hyperglycemia or hyperglycemic crisis, random plasma glucose results greater than or equal to 200 mg/dL meet the criteria for diagnosis of diabetes. Reference: Standards of Medical Care in Diabetes 2016, [place] [employer]. Diabetes Care. 2016.39(Suppl 1). LAB BUN 9-24 mg/dL BUN 14 LAB CRET 0.73-1.22 mg/dL Creatinine 0.97 LAB NA 136-144 mmol/L Sodium Low 133 LAB K 3.7-5.1 mmol/L Potassium 4.2 LAB CL 97-105 mmol/L Chloride Low 94 LAB CO2 22-30 mmol/L CO2 24 LAB AGAP 9-18 mmol/L Anion Gap 15 LAB ALT 10-54 U/L ALT 16 LAB GFRAA eGFR- Amer. >60 LAB GFRNAA . eGFR-All Other Races >60 Result Comment: eGFR (Estimated GFR) Units of measure: mL/min/1.73 meters squared eGFR is derived from the reexpressed MDRD Study equation using the following parameters: serum creatinine, age, gender and race. The creatinine assay has been calibrated to be traceable to IDMS. An eGFR <60 mL/min/1.73m2 for >3 months is consistent with chronic kidney disease. Refer to KDOQI guidelines for clinical interpretation. In patients with unstable renal function, e.g. those with acute kidney injury, the eGFR may not accurately reflect actual GFR. Performed By: #### B2M, CMP, KLFRS, SEPG, MPASRM #### [facility] [address], [place] [address] KAPPA/MILLER,FREE,SER Collected: Status: F Source: [place] 06/25/2017 11:04 AM [facility] REPOSITORY TYPE CODE TESTS RESULT OUT OF REFERENCE UNITS RANGE LAB FKAPS 3.30-19.40 mg/L High [place], 37.0 Free, Serum Result Comment: Rarely, increased serum free light chains values may not be detected due to antigen excess phenomenon. Results should always be correlated with other laboratory results and clinical findings. LAB FLAMS 5.7-26.3 mg/L Lambda, Free, 9.2 Serum Result Comment: Rarely, increased serum free light chains values may not be detected due to antigen excess phenomenon. Results should always be correlated with other laboratory results and clinical findings. LAB KLRAT 0.26-1.65 High K/L Ratio, 4.02 Serum Performed By: #### B2M, CMP, KLFRS, SEPG, MPASRM #### [facility] [address] [id number] PROTEIN ELECTROPHOR. Collected: 06/25/2017 Status: F Source: [place] 11:04 AM [facility] REPOSITORY TYPE CODE TESTS RESULT OUT OF REFERENCE UNITS RANGE LAB TPSPE 6.0-8.4 g/dL Total Protein, SPE 7.4 LAB ALBE 3.37-4.23 gm/dL Albumin 3.77 LAB A1GL 0.18-0.31 gm/dL Alpha 1 Globulin 0.29 LAB A2GL 0.52-0.97 gm/dL Alpha 2 Globulin High 1.02 LAB BEGL 0.84-1.36 gm/dL Beta Globulin 0.95 LAB GAGL 0.70-1.44 gm/dL Gamma Globulin 1.37 LAB SPEINT Interpretation SEE COMMENT Result Comment: An M protein is identified on protein electrophoresis. See separate immunofixation report for characterization of the M protein. LAB LOC M Protein Gamma Location fraction LAB GPERDL 0.00 gm/dL M Cesar 0.68 High Concentratn LAB SPESTF SPE Staff Review Reviewed by Russell Carrera M.D., PhD ([id number]) Performed By: #### B2M, CMP, KLFRS, SEPG, MPASRM #### [facility] [address] [id number] MONOCLONL PROTEIN,BL Collected: 06/25/2017 Status: F Source: [place] 11:04 AM [facility] REPOSITORY TYPE CODE TESTS RESULT OUT OF RANGE REFERENCE UNITS LAB MPAIGG 717-1411 mg/dL MPA Serum IgG 1240 LAB MPAIGA 78-391 mg/dL Low MPA Serum IgA 71 LAB MPAIGM 53-334 mg/dL Low MPA Serum IgM 14 LAB MPAK 534-1267 mg/dL High Serum [place] 1490 LAB MPAL 253-653 mg/dL Low Serum Lambda 177 LAB MPAKL 1-3 High MPA Juan Ramon/Bentley Ratio 8.42 LAB MPAR No M protein is MPA Result Abnormal identified. M protein Alert is present. LAB INTP MPA Interpretation SEE COMMENT Result Comment: Atypical restricted bands are present in the IgG and kappa regions. Consistent with IgG kappa monoclonal gammopathy. LAB MPASTF Staff Reviewed by Review Russell Carrera M.D., PhD ([id number]) Performed By: #### B2M, CMP, KLFRS, SEPG, MPASRM #### [facility] [address] [place], [place] [address] DAVID ABS GR + CBC Collected: 06/25/2017 Status: F Source: [place] 11:03 AM [facility] REPOSITORY TYPE CODE TESTS RESULT OUT OF REFERENCE UNITS RANGE LAB WWBC 3.70-11.00 k/uL [place] WBC 7.21 LAB WRBC 4.20-6.00 m/uL Low [place] RBC 3.35 LAB WHGB 13.0-17.0 g/dL Low [place] Hemoglobin 10.6 LAB WHCT 39.0-51.0 % Low David Hematocrit 31.5 LAB WMCV 80.0-100.0 fL David MCV 94.0 LAB WMCH 26.0-34.0 pg David MCH 31.6 LAB WMCHC 30.5-36.0 g/dL David MCHC 33.7 LAB WRDW 11.5-15.0 % David High RDW 15.2 LAB WPLT 150-400 k/uL [place] Platelet Cnt 203 LAB WMPV 9.0-12.7 fL David MPV 9.8 Result Comment: Test performed at: [facility], [address] [place] [address] Rd[address] [place] [address]. LAB ABGRAN 1.45-7.50 k/uL Absol Gran 4.88 Count DAVID ABS GR + CBC Collected: 06/13/2017 Status: F Source: [place] 2:00 PM [facility] REPOSITORY TYPE CODE TESTS RESULT OUT OF REFERENCE UNITS RANGE LAB WWBC 3.70-11.00 k/uL David WBC 8.80 LAB WRBC 4.20-6.00 m/uL Low [place] RBC 3.45 LAB WHGB 13.0-17.0 g/dL Low [place] Hemoglobin 10.7 LAB WHCT 39.0-51.0 % Low [place] Hematocrit 32.6 LAB WMCV 80.0-100.0 fL David MCV 94.5 LAB WMCH 26.0-34.0 pg [place] MCH 31.0 LAB WMCHC 30.5-36.0 g/dL [place] MCHC 32.8 LAB WRDW 11.5-15.0 % [place] High RDW 15.4 LAB WPLT 150-400 k/uL David Platelet Cnt 197 LAB WMPV 9.0-12.7 fL David MPV 10.5 Result Comment: Test performed at: [facility], [address] [place] [address]. LAB ABGRAN 1.45-7.50 k/uL Absol Gran 6.36 Count DAVID ABS GR + CBC Collected: 06/06/2017 Status: F Source: [place] 3:17 PM [facility] REPOSITORY TYPE CODE TESTS RESULT OUT OF REFERENCE UNITS RANGE LAB WWBC 3.70-11.00 k/uL [place] WBC 7.17 LAB WRBC 4.20-6.00 m/uL Low David RBC 3.40 LAB WHGB 13.0-17.0 g/dL Low [place] Hemoglobin 10.5 LAB WHCT 39.0-51.0 % Low David Hematocrit 31.9 LAB WMCV 80.0-100.0 fL [place] MCV 93.8 LAB WMCH 26.0-34.0 pg [place] MCH 30.9 LAB WMCHC 30.5-36.0 g/dL David MCHC 32.9 LAB WRDW 11.5-15.0 % David High RDW 15.3 LAB WPLT 150-400 k/uL David Platelet Cnt 249 LAB WMPV 9.0-12.7 fL David MPV 10.5 Result Comment: Test performed at: [facility], [address] [place] [address] Rd[address] [place] [address]. LAB ABGRAN 1.45-7.50 k/uL Absol Gran 4.25 Count ALLERGIES ALLERGIES DATE TYPE / CODE NAME / CODE REACTION SEVERITY SOURCE 12/23/2016 Drug No Known Unknown [facility] Allergy/416 Allergies/[id number] Hospital [id number](SNOM 0388(RXNORM) Repository ED CT) Drug NO KNOWN [facility] Class/44611 ALLERGIES Main [place] 1003(SNOMED Repository CT) ENCOUNTERS ENCOUNTERS ADMIT/DISCHARGE ACCOUNT NUMBER ADMITTING ENCOUNTER LOCATION SOURCE CLASS 05/22/2018 [id number] Ambulatory [facility] ding:[facility] Repository 05/18/2018/05/21/19 [id number] Ambulatory [address] [place] Repository 05/18/2018/05/18/19 [id number] Ambulatory [facility] [place] Repository 05/18/2018/05/19/19 [id number] Ambulatory [facility] [place] Repository 05/13/2018/05/13/19 [id number] Ambulatory [facility] [place] Repository 05/13/2018 [id number] [facility] [place] Repository 05/13/2018/05/13/19 [id number] Ambulatory [facility] [place] Repository 05/13/2018/05/13/19 [id number] Ambulatory [facility] [place] Repository 05/13/2018/05/14/19 [id number] Ambulatory [facility] [place] Repository 05/13/2018/05/13/19 [id number] Ambulatory [facility] [place] Repository 04/29/2018/04/29/20 [id number] Ambulatory [facility] [place] Repository 04/29/2018/04/29/20 [id number] Ambulatory [facility] [place] Repository 04/29/2018/04/30/20 [id number] Ambulatory [facility] [place] Repository 04/01/2018/04/01/20 [id number] Ambulatory [facility] [place] Repository 04/01/2018/04/02/20 [id number] Ambulatory [facility] [place] Repository 03/11/2018/03/12/20 [id number] Ambulatory [facility] [place] Repository 03/11/2018/03/12/20 [id number] Ambulatory [facility] [place] Repository 02/16/2018/02/17/20 [id number] Ambulatory [facility] [place] Repository 02/16/2018/02/18/20 [id number] Ambulatory [facility] [place] Repository 02/16/2018/02/17/20 [id number] Ambulatory [facility] [place] Repository 01/26/2018/01/27/20 [id number] Ambulatory [facility] [place] Repository 01/26/2018/01/28/20 [id number] Ambulatory [facility] [place] Repository 01/26/2018/01/27/20 [id number] Ambulatory [facility] [place] Repository 01/19/2018/01/20/20 [id number] Ambulatory [facility] [place] Repository 01/19/2018/09/18 [id number] Ambulatory [facility] [place] Repository 01/12/2018/01/13/20 [id number] Ambulatory [facility] [place] Repository 01/12/2018/01/17/20 [id number] Ambulatory [facility] [place] Repository 01/06/2018/01/07/20 [id number] Ambulatory [facility] [place] Repository 01/06/2018/01/17/20 [id number] Ambulatory [facility] [place] Repository 01/06/2018/01/07/20 [id number] Ambulatory [facility] [place] Repository 12/29/2017/12/30/19 [id number] Ambulatory [facility] [place] Repository 12/29/2017/12/31/19 [id number] Ambulatory [facility] [place] Repository 12/29/2017/12/30/19 [id number] Ambulatory [facility] [place] Repository 12/22/2017/12/23/19 [id number] Ambulatory [facility] [place] Repository 12/22/2017/12/23/19 [id number] Ambulatory [facility] [place] Repository 12/22/2017/12/24/19 [id number] Ambulatory [facility] [place] Repository 12/22/2017/12/23/19 [id number] Ambulatory [facility] [place] Repository 12/16/2017/12/17/19 [id number] Ambulatory [facility] [place] Repository 12/16/2017/12/18/19 [id number] Ambulatory [facility] [place] Repository 12/09/2017/12/10/19 [id number] Ambulatory [facility] [place] Repository 12/09/2017/12/11/19 [id number] Ambulatory [facility] [place] Repository 12/02/2017/12/03/19 [id number] Ambulatory [facility] [place] Repository 12/02/2017/12/04/19 [id number] Ambulatory [facility] [place] Repository 11/25/2017/11/26/19 [id number] Ambulatory [facility] [place] Repository 11/25/2017/11/26/19 [id number] Ambulatory [facility] [place] Repository 11/25/2017/11/27/19 [id number] Ambulatory [facility] [place] Repository 11/14/2017/11/15/19 [id number] Ambulatory [address] [place] Repository 11/14/2017/11/18/19 [id number] Ambulatory [address] [place] Repository 11/14/2017/11/15/19 [id number] Ambulatory [address] [place] Repository 11/12/2017/11/13/19 [id number] Emergency BBuilding:[address] Repository 10/20/2017 [id number] Ambulatory [facility] ding:[facility] Repository 10/16/2017/10/18/19 [id number] Ambulatory [address] Repository 10/16/2017 [id number] Ambulatory [facility] [place] Repository 10/16/2017/10/17/19 [id number] Ambulatory [address] Repository 09/30/2017/10/01/19 [id number] Ambulatory [address] ding:[facility] Repository 09/18/2017/09/20/19 [id number] Ambulatory [address] Repository 09/18/2017/09/19/19 [id number] Ambulatory [address] Repository 09/18/2017 [id number] Ambulatory [facility] Repository 09/10/2017 [id number] Ambulatory [facility] ding:LAB.FUT Repository URE 09/03/2017/09/04/19 [id number] Ambulatory [address] ding:[facility] Repository 08/29/2017 [id number] Ambulatory [facility] [place] Repository 08/29/2017/09/02/19 [id number] Ambulatory [address] [place] Repository 08/20/2017 [id number] Ambulatory [facility] [place] Repository 08/20/2017/08/22/19 [id number] Ambulatory [address] [place] Repository 08/20/2017/08/21/19 [id number] Ambulatory [address] [place] Repository 08/01/2017 [id number] Ambulatory [facility] [place] Repository 08/01/2017/08/05/19 [id number] Ambulatory [address] [place] Repository 08/01/2017/08/02/19 [id number] Ambulatory [facility] [place] Repository 07/25/2017/07/29/19 [id number] Ambulatory [facility] [place] Repository 07/24/2017/07/26/19 [id number] Ambulatory [facility] [place] Repository 07/24/2017/07/26/19 [id number] Ambulatory [facility] [place] Repository 07/24/2017 [id number] Ambulatory [facility] [place] Repository 07/11/2017 [id number] Ambulatory [facility] [place] Repository 07/11/2017/07/17/19 [id number] Ambulatory [facility] [place] Repository 07/11/2017/07/12/19 [id number] Ambulatory [facility] [place] Repository 07/04/2017 [id number] Ambulatory [facility] [place] Repository 07/04/2017/07/08/19 [id number] Ambulatory [facility] [place] Repository 07/04/2017/07/05/19 [id number] Ambulatory [facility] [place] Repository 06/25/2017/06/26/19 [id number] Ambulatory [facility] [place] Repository 06/25/2017/06/25/19 [id number] Amb[facility] [place] Repository 06/25/2017 [id number] Ambulatory [facility] [place] Repository 06/25/2017/06/25/19 [id number] Ambulatory [facility] [place] Repository 06/13/2017 [id number] Ambulatory [facility] [place] Repository 06/13/2017/06/13/19 [id number] Ambulatory [facility] [place] Repository 06/13/2017/06/16/19 [id number] Ambulatory [facility] [place] Repository 06/06/2017 [id number] Ambulatory [facility] [place] Repository 06/06/2017/06/09/19 [id number] Ambulatory [facility] [place] Repository 06/06/2017/06/06/19 [id number] Ambulatory [facility] [place] Repository PAYERS PAYERS ENCOUNTER GUARANTOR PAYER SUBSCRIBER SOURCE 05/22/2018 GLENDY FLORES Primary Insurance:BLAINE Hernandez Jr.[id number] [facility] Jr.: [facility] [id number] [id number] Date:[id number] BOX Repository [address]Afw: (127) [id number], [place] [phone] () [phone]: 05/22/2018 Secondary NOT GIVENUNK [place] Insurance:SELF PAY Community INSURANCEPolicy Number: Hospital Effective Repository Date:2018-05-13 11/12/2017 GLENDY FLORES Primary [facility] JRDOB: Insurance:MANDO FLORESB: [facility] [id number] [employer] COMMERCIALPolicy [id number] Repository [facility] Number: [address], [place] [id number] RDOR[place], [place] [address]Ihb: (330) Date:2017-11-12 03248Rho: [id number] Name:[facility] [phone] ()Tel: (363) [address]Hlqiusu [place] () () [address]AL: [phone] () 10/20/2017 GLENDY FLORES Primary [place] Jr.[id number] [place] Insurance:So MarkB: [facility] Number: [id number] [place], [place] [id number] Repository [address]Kli: (330) Date:[id number] [phone] () [place]UNS[place]WV, [place] [address]TE: 10/20/2017 Secondary NOT GIVENUNK [place] Insurance:SELF PAY Community INSURANCEPolicy Number: Hospital Effective Repository Date:2017-10-20 09/30/2017 GLENDY FLORES Primary HOLLY [facility] JRDOB: Insurance:MANDO FLORESB: [facility] [id number] [employer] COMMERCIALPolicy [id number] Repository [facility] Number: [address], [place] [id number] [place], [place] [address]Was: (330) Date:2017-09-30 55193Lwe: [id number] Name:[facility] [phone] (HP)Tel: ([address] [place] (HP) (WP) [address]ZX: [phone] (WP) 09/10/2017 Glendy Flores Primary Holly Trayloroster [id number] [facility] Insurance:So [facility] City Number: [id number] [id number] Repository [address]Hwo: Date:8405-63-18LN [phone] [id number], [place] 0-4 (HP) [address]YS: 09/10/2017 Secondary NOT GIVENUNK [place] Insurance:SELF PAY [facility] INSURANCEPolicy Number: Hospital Effective Repository Date:2017-09-10 09/03/2017 GLENDY FLOERS Primary GLENDY FLORES [facility] JRDOB: Insurance:MANDO CARVAJAL JRDOB: [facility] [id number] [place] COMMERCIAL[employer] [id number] Repository [facility] Number: [address], [place] [id number] [place], [place] [address]Sxn: 330) Date:2017-09-03 79193Hjn: [id number] Name:[facility] [phone] ()Tel: [address] [place] () ([place]) [address]AF: [phone] (WP)
== END ==
PROVIDERS: Family Provider Family Medicine; PCP Family Medicine; Referring Provider Urology; Visit Provider Urology
DX: R97.20 Elevated prostate specific antigen [PSA] (principal)
CPT/HCPCS: 72197; A9585; A4216

== ENCOUNTER → 2018-06-25 11:00 | Outpatient (CLI) | payer MEDICARE, SELFPAY ==
[2016-12-25 10:36] VITALS: BMI 27.3
--- NOTE | 2018-06-25 11:00 | PROSBIL_PTH ---
PATIENT: GLENDY FLORES Jr. LOC: LIA U#:[id number] AGE/SX: 84/M ROOM: RE06/25/[address]: Dr. Jordy Sparks MD : 1940 BED: DIS: SPEC #: [id number] RECD: 06/25/18 15:30 STATUS: AUTUMN DEANDRE #: [id number] ARABELLA: 06/25/18 11:[address]: Jordy Sparks DEPT: SURGICAL PATHOLOGY RECD BY: Yang Brooks ENTERED: 06/26/18 10:18 SP TYPE: PROST BX NENA DR: Dr. Rashawn Monson MD Tissues: A - PROSTATE RIGHT B - PROSTATE RIGHT C - PROSTATE RIGHT D - PROSTATE LEFT E - PROSTATE LEFT F - PROSTATE LEFT Procedures: PROSTATE BX HEADER OPERATION: Prostate biopsy PRE-OP DIAGNOSIS: Elevated PSA TISSUE SUBMITTED: A - Right apex, B - Right mid, C - Right base, D - Left apex, E - Left mid, F - Left base MICROSCOPIC DIAGNOSIS A. Right prostate, apex, core biopsy: Focal minimal high-grade prostatic intraepithelial neoplasia (HGPIN). B. Right prostate, mid, core biopsy: Prostatic tissue, negative for malignancy. Focal mild chronic inflammation. C. Right prostate, base, core biopsy: Prostatic tissue, negative for malignancy. D. Left prostate, apex, core biopsy: Prostatic tissue, negative for malignancy. E. Left prostate, mid, core biopsy: Prostatic tissue, negative for malignancy. F. Left prostate, base, core biopsy: Prostatic tissue, negative for malignancy. Focal mild acute and chronic inflammation. SJ:ruddy 06/29/18 MICROSCOPIC DESCRIPTION Slides are reviewed. GROSS DESCRIPTION A - Received is one container designated prostate, right apex. The specimen consists of two elongated fragments of light mcfadden-white soft tissue each measuring 0.8 cm in length and 0.1 cm in diameter. The specimen is totally submitted in one cassette. B - Received is one container designated prostate, right mid. The specimen consists of two elongated fragments of light mcfadden-white soft tissue each measuring 1 cm in length and 0.1 cm in diameter. The specimen is totally submitted in one cassette. C - Received is one container designated prostate, right base. The specimen consists of two elongated fragments of light mcfadden-white soft tissue each measuring 1.5 cm in length and 0.1 cm in diameter. The specimen is totally submitted in one cassette. D - Received is one container designated prostate, left apex. The specimen consists of two elongated fragments of light mcfadden-white soft tissue each measuring 1 cm in length and 0.1 cm in diameter. The specimen is totally submitted in one cassette. E - Received is one container designated prostate, left mid. The specimen consists of one elongated fragment of light mcfadden-white soft tissue measuring 1 cm in length and 0.1 cm in diameter. The specimen is totally submitted in one cassette. F - Received is one container designated prostate, left base. The specimen consists of two elongated fragments of light mcfadden-white soft tissue each measuring 1 cm in length and 0.1 cm in diameter. The specimen is totally submitted in one cassette. / AM:ruddy 06/26/18 TC:5 CPT: G0146
== END ==
PROVIDERS: Family Provider Family Medicine; PCP Family Medicine; Referring Provider Urology; Visit Provider Urology
DX: R97.20 Elevated prostate specific antigen [PSA] (principal)
CPT/HCPCS: 88305; G0416